=== PATIENT | male | born 1955 | race Caucasian/White ===

== ENCOUNTER → 2020-04-06 08:46 | Outpatient (REF) | payer OTHER, SELFPAY ==
--- NOTE | 2020-04-06 | NM_ITS ---
EXERCISE MYOCARDIAL PERFUSION STUDY INDICATION: Shortness of breath, positive family history for coronary disease, coronary artery catheterization on CT scan, assess for ischemia TECHNIQUE: The patient was brought in for an exercise perfusion study on 04/06/2020. Patient performed exercise as per [place] protocol and was injected 30 mCi of sestamibi once target heart rate was achieved. Images were obtained using the SPECT gamma camera interlaced with the gating device. Images were obtained in supine position. Resting perfusion study was performed on 04/07/2020. Patient was administered 30 mCi of sestamibi intravenously at rest. Images were then obtained in supine position. Total DLP 76mGy-cm. Images were processed with the software and compared side to side in short axis, horizontal long axis and vertical long axis views. FINDINGS: Raw images were reviewed. The stress perfusion study showed diminished tracer uptake along the basal to mid inferior wall; basal to mid inferior septum. With CT attenuation correction, this improves significantly suggestive of diaphragmatic attenuation artifact. The gated study shows normal LV systolic function with calculated LVEF of 71%. LV cavity is normal in size. The gated study shows normal wall thickening and contraction of segments. Resting study shows diminished tracer uptake along the basal to mid inferior wall as well as basal to mid inferior septum, similar to the stress acquisition. With CT attenuation correction, there is improvement suggestive of diaphragmatic attenuation artifact. Gating at rest reveals normal wall motion with ejection fraction at 63%. The findings are consistent with no reversible defects. Fixed defect in the basal to mid inferior wall and inferior septum with improvement during CT attenuation correction suggestive of diaphragmatic attenuation artifact. NM/NM traci perf SPECT rest & str IMPRESSION: 1. Myocardial perfusion imaging study shows no evidence of any ischemia or infarction. Fixed defect in the basal to mid inferior wall/inferior septum suspected to be from diaphragmatic attenuation artifact. 2. Gated LVEF is 71% during stress and 60% during rest. 3. Transient ischemic dilatation not present.. EKG component of the test reported separately.
--- NOTE | 2020-04-06 08:52 | CA_ITS ---
Transthoracic Echocardiogram Patient (Last, First, Middle): aVleria Coffman C Gender: Male Date of : 1955 Age: 65 Procedure Date: 04/06/2020 Procedure Type: Transthoracic Echocardiogram Location: OP Height: 182.88 cm Weight: 97.52 kg BSA: 2.20 m2 Heart Rate: bpm BP: 132 / 80 mmHg Fire Fighter: ALBA Referring MD: Demond Montelongo MD Symptoms: R06.02 SOB Study Quality: Fair ECG Rhythm: Sinus Conclusions: - The left ventricular systolic function is mildly decreased. The visually estimated ejection fraction is between 40-45%. - Diastolic function is normal for age. - The inferolateral wall is hypokinetic. - Mildly increased right ventricular cavity size. There is normal right ventricular systolic function. - Mildly elevated right atrial pressure. There is no evidence of pulmonary hypertension. - There is mild dilatation of the ascending aorta. Findings Left Ventricle Normal left ventricular cavity size. There is normal left ventricular wall thickness. The left ventricular systolic function is mildly decreased. The visually estimated ejection fraction is between 40-45%. There is evidence of regional wall motion abnormalities. Diastolic function is normal for age. Wall Motion Rest Echo Findings The inferolateral wall is hypokinetic. Right Ventricle Mildly increased right ventricular cavity size. There is normal right ventricular systolic function. Atria Both atria are normal in size. Aortic Valve Normal aortic valve structure and function. There is no aortic valve stenosis. There is no aortic valve regurgitation. Mitral Valve Normal mitral valve structure and function. There is trace mitral valve regurgitation. There is no mitral valve stenosis. Tricuspid Valve Normal tricuspid valve structure and function. There is mild tricuspid valve regurgitation. Mildly elevated right atrial pressure. There is no evidence of pulmonary hypertension. Great Vessels There is mild dilatation of the ascending aorta. The visualized portions of the pulmonary artery and branches are normal. Venous The inferior vena cava is dilated and collapses greater than 50% with inspiration. Pericardium/Pleural There is no evidence of pericardial effusion. Prior Study Comparison No prior study available for comparison. Measurements 2D Linear Measurements IVSd: 0.99 0.6-0.9/0.6-1.0 cm LVIDd: 4.49 3.9-5.3/4.2-5.9 cm LVIDs: 3.01 2.0-3.6 cm LVPWd: 0.96 0.7-1.1 cm Ao Root: 3.82 2.1-3.5 cm LV Mass: 182.65 67-162/88-224 g LVOT Diam: 2.57 3.0+(-)1.3 cm Mitral Valve MV Pk E: 0.81 MV PK A: 0.66 MV Decel Time: 143.12 E/A: 1.22 E'Lateral: 0.10 E'Medial: 0.14 Decel [place]: 5.64 Aortic Valve AoV Pk Ronald: 1.05 AoV Mn Ronald: 0.74 AoV VTI: 0.27 AoV Pk Grad: 4.38 Aov Mn Grad: 2.52 LVOT LVOT Pk Ronald: 0.86 LVOT Mn Ronald: 0.62 LVOT VTI: 0.18 LVOT Pk Grad: 2.95 LVOT Mn Grad: 1.70 LVOT Diam: 2.57 LVOT Area: 5.18 Diastolic Function MV Pk E: 0.81 MV Pk A: 0.66 E/A: 1.22 E'Medial: 0.14 E' Laterial: 0.10 Tricuspid Valve TR Pk Ronald: 2.19 TR Pk Grad: 19.28 RA Press: 3.00 RVSP: 31.00 Great Vessels Aorta Ao Root-2D: 3.82 2.0-3.7 cm Ao Asc: 4.00 2.1-3.4 cm Pulmonary Valve PV Pk Ronald: 0.89 Peak PV Grad: 3.15 Updated in Other Vendor System with Status of Final Ortiz Che MD electronically signed on 04/07/2020 11:46:10 AM with status of Final
--- NOTE | 2020-04-06 09:30 | CA_ITS ---
Acquisition Time: 2020-04-06 09:52:06 Total Exercise Time: 00:08:01 Test Indications: Dyspnea Medications: ASA SIMVASTATIN Protocol: MADDY Max HR: 148 BPM 94% of Pred: 157 BPM Max BP: 196/062 mmHG Max Work Load: 10.1 METS Exercise stress test using Maddy protocol, total of 8 min 1 sec. METS 10.1. Pt tolerated well, denies any anginal sx. EKG with occ PVC's withot any sx. no ischemic changes. Hypertensiverresponse to exercise BP up to 196/62. Nuclear images to follow. Test reviewed with Dr. Che. Referred By: Demond Montelongo Overread By: Khadar Javier
== END ==
LOC: HO.CARD 08:46
PROVIDERS: PCP Family Medicine; Visit Provider Internal Medicine Cardiovascular Disease
DX: R06.02 Shortness of breath (principal); R93.1 Abnormal findings on diagnostic imaging of heart and coronary circulation; E78.00 Pure hypercholesterolemia, unspecified; Z82.49 Family history of ischemic heart disease and other diseases of the circulatory system
CPT/HCPCS: 78452; 93017; 93306; A9500

== ENCOUNTER → 2020-04-19 10:42 | Outpatient (BNVA) | payer OTHER, SELFPAY | PROVIDERS: PCP Family Medicine; Referring Provider Family Medicine; Visit Provider Internal Medicine Cardiovascular Disease | DX: I25.10 Atherosclerotic heart disease of native coronary artery without angina pectoris (principal); R06.02 Shortness of breath; R93.1 Abnormal findings on diagnostic imaging of heart and coronary circulation; E78.5 Hyperlipidemia, unspecified; Z79.82 Long term (current) use of aspirin; Z79.899 Other long term (current) drug therapy | CPT/HCPCS: 99212 ==

== ENCOUNTER 2020-05-06 13:09 | Outpatient (REF) | payer OTHER, SELFPAY | END 2020-05-06 13:10 | disposition home or self-care (01) | LOC: HO.LNP 13:09 | PROVIDERS: Visit Provider Family Medicine | DX: Z20.828 Contact with and (suspected) exposure to other viral communicable diseases (principal) | CPT/HCPCS: U0003 ==

== ENCOUNTER → 2020-05-18 08:01 | Outpatient (BNVA) | payer OTHER, SELFPAY | PROVIDERS: PCP Family Medicine; Referring Provider Family Medicine; Visit Provider Psychiatry & Neurology Neurology | DX: Z13.89 Encounter for screening for other disorder (principal) ==

== ENCOUNTER → 2020-07-06 11:16 | Outpatient (BNVA) | payer OTHER, SELFPAY | PROVIDERS: PCP Family Medicine; Visit Provider Psychiatry & Neurology Neurology ==

== ENCOUNTER → 2020-07-12 08:56 | Outpatient (REF) | payer OTHER, SELFPAY | LOC: HO.SL 08:56 | PROVIDERS: Visit Provider Psychiatry & Neurology Neurology | DX: G47.33 Obstructive sleep apnea (adult) (pediatric) (principal); G47.19 Other hypersomnia | CPT/HCPCS: 95806 ==

== ENCOUNTER → 2020-07-26 08:13 | Outpatient (REF) | payer OTHER, SELFPAY ==
--- NOTE | 2020-07-26 08:17 | CA_ITS ---
Transthoracic Echocardiogram Patient (Last, First, Middle): Valeria Coffman C Gender: Male Date of : 1955 Age: 65 Procedure Date: 07/26/2020 Procedure Type: Transthoracic Echocardiogram Location: OP Height: 182.88 cm Weight: 99.79 kg BSA: 2.22 m2 Heart Rate: bpm BP: 126 / 80 mmHg Pediatrics Physician: Referring MD: Demond Montelongo MD Symptoms: R93.1 - Abnormal findings on diagnostic imaging of heart and coronary circulation Study Quality: Fair ECG Rhythm: Sinus Conclusions: - The left ventricular systolic function is low normal. The visually estimated ejection fraction is between 50-55%. Findings Left Ventricle Normal left ventricular cavity size. There is mildly increased left ventricular wall thickness. The left ventricular systolic function is low normal. The visually estimated ejection fraction is between 50-55%. There is no evidence of regional wall motion abnormalities. Right Ventricle Mildly increased right ventricular cavity size. There is normal right ventricular systolic function. Tricuspid Valve The right ventricular systolic pressure is 23 mmHg. The pulmonary artery systolic pressure is normal. Prior Study Comparison Changes noted compared to prior study dated: 04/06/2020. LVEF appears higher than previously described. Measurements 2D Linear Measurements IVSd: 1.07 0.6-0.9/0.6-1.0 cm LVIDd: 4.04 3.9-5.3/4.2-5.9 cm LVIDd Index: 1.82 2.4-3.2/2.2-3.1 cm/m2 LVIDs: 3.08 2.0-3.6 cm LVPWd: 1.14 0.7-1.1 cm LV Mass: 185.33 67-162/88-224 g LV Mass Index: 83.48 43-95/49-115 g/m2 2D Systolic Function EF 4C: 40.10 >55% EF 2C: 46.70 >55% Tricuspid Valve TR Pk Ronald: 2.20 TR Pk Grad: 20.00 RA Press: 3.00 RVSP: 23.00 Updated in Other Vendor System with Status of Final Carlos Verde MD electronically signed on 07/27/2020 2:58:02 PM with status of Final
== END ==
LOC: HO.CARD 08:13
PROVIDERS: Visit Provider Internal Medicine Cardiovascular Disease
DX: I25.10 Atherosclerotic heart disease of native coronary artery without angina pectoris (principal); R06.02 Shortness of breath; R93.1 Abnormal findings on diagnostic imaging of heart and coronary circulation
CPT/HCPCS: 93308

== ENCOUNTER → 2020-08-03 08:32 | Outpatient (BNVA) | payer OTHER, SELFPAY | PROVIDERS: PCP Family Medicine; Visit Provider Internal Medicine Cardiovascular Disease ==

== ENCOUNTER → 2020-09-14 08:42 | Outpatient (BNVA) | payer OTHER, SELFPAY | PROVIDERS: PCP Family Medicine; Visit Provider Psychiatry & Neurology Neurology ==

== ENCOUNTER → 2020-12-07 08:47 | Outpatient (BNVA) | payer OTHER, SELFPAY | PROVIDERS: PCP Family Medicine; Visit Provider Psychiatry & Neurology Neurology ==

== ENCOUNTER → 2021-07-15 08:19 | Outpatient (REF) | payer OTHER, SELFPAY ==
--- NOTE | 2021-07-15 08:22 | CA_ITS ---
Transthoracic Echocardiogram Patient (Last, First, Middle): Valeria Coffman C Gender: Male Date of : 1955 Age: 66 Procedure Date: 07/15/2021 Procedure Type: Transthoracic Echocardiogram Location: OP Height: 182.88 cm Weight: 55.79 kg BSA: 1.73 m2 Heart Rate: bpm BP: 128 / 85 mmHg Contact Lens Technician: JANAE Referring MD: Demond Montelongo MD Curtain Fitter: Demond Montelongo MD Symptoms: I25.10 - Atherosclerotic heart disease of [place] coronary artery without angina pectoris Study Quality: Fair ECG Rhythm: Sinus Conclusions: - 1. Normal LV systolic function 2. Normal cardiac valvular Dopplers 3. Mildly dilated ascending aorta 4. Normal RVSP 5. No pericardial effusion Findings Left Ventricle Normal left ventricular size, thickness, and systolic function. The visually estimated ejection fraction is between 55-60%. Spectral Doppler is indicative of a normal filling pattern. Right Ventricle Normal right ventricular cavity size and systolic function. Atria Both atria are normal in size. There is no evidence of interatrial shunt. Aortic Valve There is mild calcification of the aortic valve. There is no aortic valve stenosis. There is no aortic valve regurgitation. Mitral Valve There is mild anterior mitral leaflet thickening. There is trace mitral valve regurgitation. There is no mitral valve stenosis. Pulmonic Valve The pulmonic valve was not well visualized. Tricuspid Valve Normal tricuspid valve structure. There is trace tricuspid valve regurgitation. The right ventricular systolic pressure is normal. The right ventricular systolic pressure is 21 mmHg. Normal right atrial pressure. There is no evidence of pulmonary hypertension. Great Vessels The pulmonary artery was not well visualized. There is mild dilatation of the ascending aorta measuring 4.00 cm. Small plaque is seen in the sino tubular ridge. Venous The inferior vena cava is normal in size and collapses greater than 50% with inspiration. Pericardium/Pleural There is no evidence of pericardial effusion. Prior Study Comparison Changes noted compared to prior study dated: 07/26/2020. LV systolic function is normal range. Ascending aorta is mildly dilated Measurements 2D Linear Measurements IVSd: 0.92 0.6-0.9/0.6-1.0 cm LVIDd: 4.17 3.9-5.3/4.2-5.9 cm LVIDd Index: 2.41 2.4-3.2/2.2-3.1 cm/m2 LVIDs: 2.38 2.0-3.6 cm LVPWd: 0.99 0.7-1.1 cm Ao Root: 4.20 2.1-3.5 cm LA Diam: 3.40 2.7-3.8/3.0-4.0 cm LAIDs Index: 1.97 1.5-2.3 cm/m2 LV Mass: 158.22 67-162/88-224 g LV Mass Index: 91.46 43-95/49-115 g/m2 LVOT Diam: 2.20 3.0+(-)1.3 cm 2D Systolic Function EF 4C: 63.80 >55% EF 2C: 51.70 >55% EF BiP: 58.50 >55% Mitral Valve MV Pk E: 0.65 MV PK A: 0.50 MV Decel Time: 192.00 E/A: 1.30 E'Lateral: 12.50 E'Medial: 7.07 E/E' Med: 9.20 E/E' Lat: 5.20 PHT: 56.00 MVA PHT: 3.93 Decel [place]: 3.38 Aortic Valve AoV Pk Ronald: 1.02 AoV Mn Ronald: 0.80 AoV VTI: 0.22 AoV Pk Grad: 4.00 Aov Mn Grad: 3.00 RADHA Cont.VTI: 3.28 LVOT LVOT Pk Ronald: 0.91 LVOT Mn Ronald: 0.68 LVOT VTI: 0.19 LVOT Pk Grad: 3.00 LVOT Mn Grad: 2.00 LVOT Diam: 2.20 LVOT Area: 3.80 Diastolic Function MV Pk E: 0.65 MV Pk A: 0.50 E/A: 1.30 E'Medial: 7.07 E/E' Med: 9.20 E' Laterial: 12.50 E/E' Lat: 5.20 Right Ventricle TAPSE (mm): 18.40 TVS' Ronald: 9.90 Tricuspid Valve TR Pk Ronald: 2.14 TR Pk Grad: 18.00 RA Press: 3.00 RVSP: 21.00 Great Vessels Aorta Ao Root-2D: 4.20 2.0-3.7 cm Ao Asc: 4.00 2.1-3.4 cm Ao Arch: 3.10 Updated in Other Vendor System with Status of Final Demond Montelongo MD electronically signed on 07/16/2021 10:13:17 AM with status of Final
== END ==
LOC: HO.CARD 08:19
PROVIDERS: PCP Family Medicine; Visit Provider Internal Medicine Cardiovascular Disease
DX: I25.10 Atherosclerotic heart disease of native coronary artery without angina pectoris (principal)
CPT/HCPCS: 93306

== ENCOUNTER → 2021-08-02 14:42 | Outpatient (BNVA) | payer OTHER, SELFPAY | PROVIDERS: PCP Family Medicine; Referring Provider Family Medicine; Visit Provider Internal Medicine Cardiovascular Disease | DX: I77.89 Other specified disorders of arteries and arterioles (principal); I25.10 Atherosclerotic heart disease of native coronary artery without angina pectoris | CPT/HCPCS: 93005; 99212 ==

== ENCOUNTER 2022-02-02 08:37 | Outpatient (REF) | payer MEDICARE, SELFPAY ==
[2022-02-02 10:48] LABS: Alanine Aminotransferase 26 U/L (0-40); Albumin Level 4.1 g/dL (3.5-5.0); Alkaline Phosphatase 82 U/L (39-117); Anion Gap 13 (12-20); Aspartate Amino Transferase 23 U/L (5-37); Bilirubin Total 0.6 mg/dL (0.0-1.0); Blood Urea Nitrogen 17 mg/dL (9-16); Calcium 8.9 mg/dL (8.4-10.2); Carbon Dioxide 26 mmol/L (22-29); Chloride 105 mmol/L (96-108); Cholesterol 135 mg/dL; Estimated Glomerular Filt Rate 60; Glucose Fasting 112 mg/dL (60-99); HDL Cholesterol 42 mg/dL; LDL Cholesterol Calculated 75 mg/dl; Sodium 139 mmol/L (135-145); Total Protein 6.8 g/dL (6.5-8.0); Triglycerides 91 mg/dL
[2022-02-02 11:13] LABS: Prostate Specific Antigen Scr 3.39 ng/mL (<0.05-4.0); TSH reflex Free T4 1.57 uIU/mL (0.32-4.0)
== END 2022-02-02 08:38 | disposition home or self-care (01) ==
LOC: HO.WFDLDS 08:37
PROVIDERS: PCP Family Medicine; Visit Provider Family Medicine
DX: Z00.00 Encounter for general adult medical examination without abnormal findings (principal); Z12.5 Encounter for screening for malignant neoplasm of prostate
CPT/HCPCS: 36415; 80053; 80061; 84153; 84443

== ENCOUNTER → 2022-03-14 09:02 | Outpatient (BNVA) | payer MEDICARE, SELFPAY | PROVIDERS: PCP Family Medicine; Visit Provider Psychiatry & Neurology Neurology | DX: Z86.73 Personal history of transient ischemic attack (TIA), and cerebral infarction without residual deficits (principal); G47.33 Obstructive sleep apnea (adult) (pediatric); Z79.82 Long term (current) use of aspirin | CPT/HCPCS: 99212 ==

== ENCOUNTER 2022-03-29 10:11 | Outpatient (REF) | payer MEDICARE, SELFPAY ==
--- NOTE | ~2022-03-29 | US_ITS ---
EXAMINATION: US EXTRACRANIAL CAROTID DUPLEX, BILATERAL CLINICAL INFORMATION: Cerebral infarction. COMPARISON: None. TECHNIQUE: Real-time ultrasound and Doppler techniques (integrating B-mode 2-D vascular images, Doppler spectral analysis and color-flow Doppler imaging) were utilized to interrogate the extracranial carotid arteries, the vertebral arteries and proximal subclavian arteries bilaterally. The degree of stenosis is determined by criteria similar to NASCET. FINDINGS: RIGHT SIDE: 1. There is mild atherosclerotic plaque seen in the bifurcation/proximal ICA region. 2. The common carotid artery PSV proximally is 78 cm/s and distally 73 cm/s. 3. The proximal internal carotid artery velocities are 79 cm/s systolic and 25 cm/s diastolic. 4. The proximal external carotid artery PSV is 100 cm/s. 5. The vertebral artery shows antegrade flow. 6. The subclavian artery waveforms are normal. 7. Incidental note made of a distended right internal jugular vein. LEFT SIDE: 1. There is mild atherosclerotic plaque seen in the bifurcation/proximal ICA region. 2. The common carotid artery PSV proximally is 105 cm/s and distally 80 cm/s. 3. The proximal internal carotid artery velocities are 44 cm/s systolic and 18 cm/s diastolic. 4. The proximal external carotid artery PSV is 79 cm/s. 5. The vertebral artery shows antegrade flow. 6. The subclavian artery waveforms are normal. US/US carotid duplex BI IMPRESSION: 1. RIGHT: Minimal, non-hemodynamically significant stenosis of the proximal right internal carotid artery corresponding to a 0-49% stenosis by velocity criteria. 2. LEFT: Minimal, non-hemodynamically significant stenosis of the proximal left internal carotid artery corresponding to a 0-49% stenosis by velocity criteria. 3. The right internal jugular vein is distended.
== END 2022-03-29 10:12 | disposition home or self-care (01) ==
LOC: HO.HMGCX 10:11
PROVIDERS: PCP Family Medicine; Visit Provider Psychiatry & Neurology Neurology
DX: Z86.73 Personal history of transient ischemic attack (TIA), and cerebral infarction without residual deficits (principal)
CPT/HCPCS: 93880

== ENCOUNTER → 2022-05-23 08:58 | Outpatient (BNVA) | payer MEDICARE, SELFPAY | PROVIDERS: PCP Family Medicine; Visit Provider Psychiatry & Neurology Neurology | DX: G47.33 Obstructive sleep apnea (adult) (pediatric) (principal); I63.9 Cerebral infarction, unspecified | CPT/HCPCS: 99212 ==

== ENCOUNTER → 2022-07-20 12:43 | Outpatient (REF) | payer MEDICARE, SELFPAY ==
--- NOTE | 2022-07-20 12:47 | CA_ITS ---
Transthoracic Echocardiogram Patient (Last, First, Middle): Valeria Coffman C Gender: Male Date of : 1955 Age: 67 Procedure Date: 07/20/2022 Procedure Type: Transthoracic Echocardiogram Location: OP Height: 182.88 cm Weight: 101.61 kg BSA: 2.24 m2 Heart Rate: bpm BP: 132 / 82 mmHg President Sales And Marketing: TO Referring MD: Demond Montelongo MD Solid Waste Facility Operator: Demond Montelongo MD Symptoms: I77.89 - Other specified disorders of arteries and arteri... Study Quality: Fair ECG Rhythm: Sinus Conclusions: - 1. Normal LV systolic and diastolic function 2. Normal cardiac valvular Doppler 3. Normal RV systolic pressure 4. Mildly dilated ascending aorta at 4.1 cm 5. No pericardial effusion Findings Left Ventricle Normal left ventricular size, thickness, and systolic function. The visually estimated ejection fraction is between 55-60%. Spectral Doppler is indicative of a normal filling pattern. Right Ventricle Normal right ventricular cavity size and systolic function. Atria Both atria are normal in size. Interatrial shunt cannot be excluded. Aortic Valve Normal aortic valve structure and function. There is no aortic valve stenosis. There is no aortic valve regurgitation. Mitral Valve Normal mitral valve structure and function. There is trace mitral valve regurgitation. There is no mitral valve stenosis. Pulmonic Valve The pulmonic valve was not well visualized. Tricuspid Valve Likely normal tricuspid valve structure and function. There is trace tricuspid valve regurgitation. The right ventricular systolic pressure is normal. The right ventricular systolic pressure is 21 mmHg. Normal right atrial pressure. There is no evidence of pulmonary hypertension. Great Vessels The pulmonary artery was not well visualized. There is mild dilatation of the ascending aorta measuring 4.10 cm. Venous The inferior vena cava is normal in size and collapses greater than 50% with inspiration. Pericardium/Pleural There is no evidence of pericardial effusion. Prior Study Comparison No significant change compared to prior study dated: 07/15/2021. Measurements 2D Linear Measurements IVSd: 1.29 0.6-0.9/0.6-1.0 cm LVIDd: 4.32 3.9-5.3/4.2-5.9 cm LVIDd Index: 1.93 2.4-3.2/2.2-3.1 cm/m2 LVIDs: 2.76 2.0-3.6 cm LVPWd: 1.12 0.7-1.1 cm LA Diam: 3.10 2.7-3.8/3.0-4.0 cm LAIDs Index: 1.38 1.5-2.3 cm/m2 LV Mass: 233.17 67-162/88-224 g LV Mass Index: 104.09 43-95/49-115 g/m2 LVOT Diam: 2.50 3.0+(-)1.3 cm 2D Systolic Function EF 4C: 55.90 >55% EF 2C: 51.80 >55% EF BiP: 55.20 >55% Mitral Valve MV Pk E: 0.59 MV PK A: 0.67 MV Decel Time: 217.00 E/A: 0.90 E'Lateral: 9.68 E'Medial: 5.22 E/E' Med: 11.30 E/E' Lat: 6.10 PHT: 63.00 MVA PHT: 3.49 Decel [place]: 2.73 Aortic Valve AoV Pk Ronald: 1.13 AoV Mn Ronald: 0.80 AoV VTI: 0.22 AoV Pk Grad: 5.00 Aov Mn Grad: 3.00 RADHA Cont.VTI: 3.99 LVOT LVOT Pk Ronald: 0.87 LVOT Mn Ronald: 0.59 LVOT VTI: 0.18 LVOT Pk Grad: 3.00 LVOT Mn Grad: 2.00 LVOT Diam: 2.50 LVOT Area: 4.91 Diastolic Function MV Pk E: 0.59 MV Pk A: 0.67 E/A: 0.90 E'Medial: 5.22 E/E' Med: 11.30 E' Laterial: 9.68 E/E' Lat: 6.10 Right Ventricle TAPSE (mm): 20.30 TVS' Ronald: 10.10 Tricuspid Valve TR Pk Ronald: 2.13 TR Pk Grad: 18.00 RA Press: 3.00 RVSP: 21.00 Great Vessels Aorta Sinus of Valsalva: 4.55 2.0-3.[address] [place]: 3.29 1.7-3.4 cm Ao Asc: 4.10 2.1-3.4 cm Updated in Other Vendor System with Status of Final Demond Montelongo MD electronically signed on 07/21/2022 12:17:47 PM with status of Final
== END ==
LOC: HO.CARD 12:43
PROVIDERS: Visit Provider Internal Medicine Cardiovascular Disease
DX: Z13.6 Encounter for screening for cardiovascular disorders (principal); I77.89 Other specified disorders of arteries and arterioles
CPT/HCPCS: 93306

== ENCOUNTER → 2022-08-03 09:04 | Outpatient (BNVA) | payer MEDICARE, SELFPAY | PROVIDERS: PCP Family Medicine; Referring Provider Family Medicine; Visit Provider Internal Medicine Cardiovascular Disease | DX: I25.10 Atherosclerotic heart disease of native coronary artery without angina pectoris (principal); I77.89 Other specified disorders of arteries and arterioles | CPT/HCPCS: 93005; 99212 ==

== ENCOUNTER → 2022-09-01 10:50 | Outpatient (REF) | payer MEDICARE, SELFPAY ==
--- NOTE | 2022-09-01 10:54 | CA_ITS ---
Acquisition Time: 2022-09-01 11:05:34 Total Exercise Time: 00:08:00 Test Indications: cad Medications: see h Protocol: MADDY Max HR: 190 BPM 122% of Pred: 155 BPM Max BP: 160/070 mmHG Max Work Load: 10.1 METS Exercise stress test 8 min of Maddy protocol achieving 97% MPHR, without anginal symptoms, isolated PACs and PVS, with normotensive response to exercise, without EKG changes meeting criteria for ischemia. Echo images obtained at rest and immediately post peak exercise. Definty contrast used. Test reviewed with Dr. Che. Normal resting LV function and regional wall motion. Post exercise, there is appropriate augmentation of the LV function and LV cavity appears to be small. Images are off axis but overall no obvious regional wall motion abnormalities noted. Conclusion: Normal stress echo at achieved workload. Referred By: Demond Montelongo Overread By: Ortiz Che
[2022-09-01 12:30] LABS: Cholesterol 136 mg/dL; HDL Cholesterol 46 mg/dL; LDL Cholesterol Calculated 72 mg/dl; Triglycerides 92 mg/dL
[2022-09-04 11:59] LABS: CRP High Sensitivity 2.4 mg/L
== END ==
LOC: HO.CARD 10:50
PROVIDERS: PCP Family Medicine; Visit Provider Internal Medicine Cardiovascular Disease
DX: I25.10 Atherosclerotic heart disease of native coronary artery without angina pectoris (principal); E78.5 Hyperlipidemia, unspecified
CPT/HCPCS: 36415; 80061; 86141; 93350; Q9957

== ENCOUNTER 2023-02-07 08:31 | Outpatient (REF) | payer MEDICARE, SELFPAY ==
[2023-02-07 11:29] LABS: MANUAL DIFF FLAG NO
[2023-02-07 11:38] LABS: Basophils Percent Auto 0.4 % (0-2); Eosinophils Absolute Auto 0.2 X10*3/uL (0.0-0.4); Eosinophils Percent Auto 4.4 % (0-4); Hematocrit 46.7 % (42.0-52.0); Hemoglobin 15.3 g/dl (14.0-18.0); Imm Gran Abs Auto 0.01 X10*3/uL (0.00-0.03); Imm Gran Pct Auto 0.2 % (0.0-0.4); Lymphocytes Absolute Auto 1.5 X10*3/uL (1.2-4.9); Lymphocytes Percent Auto 29.2 % (20-40); Mean Corpuscular HGB Conc 32.8 g/dl (31.0-36.0); Mean Corpuscular Hemoglobin 30.5 pg (27.0-33.0); Mean Corpuscular Volume 93.2 fL (80.0-98.0); Mean Platelet Volume 10.2 fL (9.4-12.4); Monocytes Absolute Auto 0.5 X10*3/uL (0.1-1.2); Monocytes Percent Auto 8.9 % (2-11); Neutrophils Percent Auto 56.9 % (45-73); Platelet Count 189 X10*3/uL (160-400); Red Blood Count 5.01 X10*6/uL (4.60-5.80); Red Cell Distribution Width 13.5 % (11.0-16.0); White Blood Count 5.3 X10*3/uL (4.8-10.8)
[2023-02-07 11:43] LABS: Estimated Average Glucose 105 mg/dL; Hemoglobin A1c % 5.3 % (<6.0)
[2023-02-07 12:07] LABS: Alanine Aminotransferase 23 U/L (0-40); Albumin Level 3.9 g/dL (3.5-5.0); Alkaline Phosphatase 76 U/L (39-117); Anion Gap 8 (12-20); Aspartate Amino Transferase 21 U/L (5-37); Blood Urea Nitrogen 18 mg/dL (9-16); Calcium 9.5 mg/dL (8.4-10.2); Carbon Dioxide 27 mmol/L (22-29); Chloride 107 mmol/L (96-108); Cholesterol 133 mg/dL (<200); Estimated Glomerular Filt Rate > 60; Glucose Random 99 mg/dL (60-115); HDL Cholesterol 50 mg/dL (>40); LDL Cholesterol Calculated 69 mg/dL (<100); Potassium 4.3 mmol/L (3.3-5.1); Sodium 138 mmol/L (135-145); Total Protein 6.9 g/dL (6.5-8.0); Triglycerides 74 mg/dL (<150)
[2023-02-07 12:28] LABS: Thyroid Stimulating Hormone 1.73 uIU/mL (0.32-4.0)
[2023-02-07 12:44] LABS: Vitamin B12 1883 pg/mL (200-900)
== END 2023-02-07 08:32 | disposition home or self-care (01) ==
LOC: HO.WFDLDS 08:31
PROVIDERS: Visit Provider Family Medicine
DX: Z13.89 Encounter for screening for other disorder (principal)
CPT/HCPCS: 36415; 80053; 80061; 82607; 83036; 84443; 85025

== ENCOUNTER 2023-02-08 08:24 | Outpatient (AMB) | payer MEDICARE, SELFPAY ==
--- NOTE | 2023-02-08 08:30 | MHC.PC.OV ---
Vital Signs 02/08/23 08:31 Height 6 ft Weight 210 lb 4 oz BMI 28.5 BP 108/64 Blood Pressure Location Rt brachial Position Sitting Respiration 13 Pulse 59 Pulse Source Pulse Oximeter Temp 98.0 F Temp Source Temporal Artery Scan Pulse Oximetry (%) 99 Oxygen Delivery Method Room Air Intake Visit Reasons: f/u HLD and elevated fasting blood sugars Intake Note: Patient is here to review labs. 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 Accompanied by: Self / Same As Patient Allergies penicillamine Allergy (Unknown, Verified 02/08/23 08:35) unknown Penicillins Adverse Reaction (Intermediate, Verified 02/08/23 08:35) Anaphylaxis Tobacco use date assessed: 08/21/22 Fall risk assessment: No Falls in past year Last assessed Fall Risk: 02/08/23 Dental Screening Dental Screen Date: 02/08/23 Did you have a dental visit in the last 12 months?: Yes Did you have a dental problem in the last 6 months where you did not have access to dental care?: No Was dental information given to patient?: Patient has dentist HPI f/u HLD and elevated fasting blood sugars HPI Details 68 y/o male presents to f/u HLD and elevated fasting blood sugars. Labs were drawn 02/07/23. Reviewed labs with pt. Last A1c 11/14/22 5.6%. A1c today 5.3%. Triglycerides 74. TC 133. LDL 69. HDL 50. He is on artovastatin 80mg daily. [facility] Medical History CAD (coronary artery disease) Enlarged thoracic aorta Hyperlipidemia Surgical History History of open reduction and internal fixation (ORIF) procedure Family History Mother No problems noted. Father CVD (cardiovascular disease) Brother Hx of CABG Brother No problems noted. Son No problems noted. Son No problems noted. Daughter No problems noted. Social History Housing: House Patient Tobacco Use Status: Former Tobacco user Years Smoked: 30 e-Cigarette/Vaping Use: Never Used service: No Current occupational status: retired Current occupational exposures/hazards: No Cognitive needs: No Hearing needs: Yes Vision needs: Yes Questionnaire Thrive Questionnaire Date Thrive assessed: 05/22/22 LUIS-7 AMB Questionnaire LUIS-7 Date LUIS - 7 assessed: 08/21/22 Source: Developed by Drs. Larry Stockton, Bridget Nielsen, Didier Hernandez and colleagues, with an educational toya from [employer]. Review of Systems Const Denies chills, Denies fatigue, Denies fever(s), Denies headache(s) and Denies weakness ENT Denies dizziness and Denies headache(s) Card Denies chest pain, Denies lightheadedness, Denies dyspnea and Denies other (Palpitations) Resp Denies cough, Denies dyspnea, Denies wheezing and Denies other ( shortness of breath) Musc Denies numbness and Denies tingling Neuro Denies dizziness, Denies headache(s), Denies numbness, Denies tingling, Denies paresthesias and Denies weakness Psych Denies anxiety and Denies depression Endo Denies fatigue Aller/Immun Denies wheezing Physical exam (Primary Care) Vital Signs: Last Vital Signs Temp 98.0 F 02/08/23 08:31 Pulse 59 02/08/23 08:31 Resp 13 02/08/23 08:31 BP 108/64 02/08/23 08:31 Pulse Ox 99 02/08/23 08:31 Oxygen Delivery Method Room Air 02/08/23 08:31 BMI result Body Mass Index 28.5 Tobacco/Smoking Status: Tobacco use Status Tobacco use date assessed 08/21/22 02/08/23 08:36 Patient Tobacco Use Status Former Tobacco user 02/08/23 08:36 e-Cigarette/Vaping Use Never Used 02/08/23 08:36 Thrive Assessment: Date of Thrive Assessment Date Thrive assessed 05/22/22 02/08/23 08:36 Const General: no acute distress and well developed Nutritional Appearance: well nourished Orientation/consciousness: patient oriented x3 HENMT Head: Yes normocephalic and Yes atraumatic Eyes General: appearance normal, both eyes and all related structures Pupils: Equal, round and reactive pupils present EOM: EOMs intact bilaterally Resp Effort & Inspection: normal respiratory effort Auscultation: clear to auscultation bilaterally Cardio Rate: regular rate Rhythm: regular rhythm Heart sounds: S1 normal heart sound present, S2 normal heart sound present, no gallops, no murmurs and no rubs Neuro General: patient oriented x3 and gait normal Cranial nerves: Yes Equal, round and reactive pupils present Psych Affect: normal affect Assessment and Plan Assessment & Plan (1) Hyperlipidemia: Comment: Cardiology recommends LDL target goal closer to 60 Code(s): E78.5 - Hyperlipidemia, unspecified Plan: LDL now improved and at goal for a patient with coronary artery disease. Will continue to follow. Cardiology has recommended and even more stringent goal and he continues to exercise and work at this Continue atorvastatin 80 mg daily (2) CAD (coronary artery disease): Code(s): I25.10 - Atherosclerotic heart disease of [place] coronary artery without angina pectoris Plan: As above Follow-up with Cardiology as recommended (3) Elevated fasting glucose: Code(s): R73.01 - Impaired fasting glucose Plan: Elevated fasting blood sugar in a patient with coronary artery disease and patient agreed to begin metformin to control blood sugars. A1c had climbed to 5.6% but since starting metformin this has decreased to 5.3% Continue medication as prescribed Orders: Orders Comprehensive [place]. Panel Fast Today Z00.00 - Encounter for general adult medical examination without abnormal findings Lipid Panel Today Z00.00 - Encounter for general adult medical examination without abnormal findings Prostate Specific Antigen Scr Today Z12.5 - Encounter for screening for malignant neoplasm of prostate TSH reflex Free T4 Today Z00.00 - Encounter for general adult medical examination without abnormal findings Microalbumin, Random (w Creat) Today I10 - Essential (primary) hypertension Complete Blood Count Auto Diff Today Z00.00 - Encounter for general adult medical examination without abnormal findings UA and rflx microscopic Today Z00.00 - Encounter for general adult medical examination without abnormal findings Coding Level of Care Code Est Pt Level 3 (00569) Diagnoses Hyperlipidemia E78.5 CAD (coronary artery disease) I25.10 Elevated fasting glucose R73.01
[2023-02-08 08:31] VITALS: BP 108/64; PULSE 59; RESP 13; TEMP 36.7; O2SAT 99; BMI 28.5
== END 2023-02-08 08:54 | disposition home or self-care (01) ==
PROVIDERS: Visit Provider Family Medicine
DX: E78.5 Hyperlipidemia, unspecified (principal); I25.10 Atherosclerotic heart disease of native coronary artery without angina pectoris; R73.01 Impaired fasting glucose
CPT/HCPCS: 99213

== ENCOUNTER 2023-05-24 08:35 | Outpatient (REF) | payer MEDICARE, SELFPAY ==
[2023-05-24 11:16] LABS: MANUAL DIFF FLAG NO
[2023-05-24 11:29] LABS: Appearance Urine Clear; Color Urine Yellow; Glucose Urine UA Negative (Negative); Leukocyte Esterase Urine Negative (Negative); Nitrite Urine Negative (Negative); Urine Blood Negative (Negative); Urine Ketones Negative (Negative); Urine Protein Negative (Neg-Trace)
[2023-05-24 11:40] LABS: Basophils Percent Auto 0.5 % (0-2); Eosinophils Absolute Auto 0.3 X10*3/uL (0.0-0.4); Eosinophils Percent Auto 4.6 % (0-4); Hematocrit 46.1 % (42.0-52.0); Hemoglobin 15.3 g/dl (14.0-18.0); Imm Gran Abs Auto 0.02 X10*3/uL (0.00-0.03); Imm Gran Pct Auto 0.4 % (0.0-0.4); Lymphocytes Absolute Auto 1.6 X10*3/uL (1.2-4.9); Lymphocytes Percent Auto 29.2 % (20-40); Mean Corpuscular HGB Conc 33.2 g/dl (31.0-36.0); Mean Corpuscular Hemoglobin 30.9 pg (27.0-33.0); Mean Corpuscular Volume 93.1 fL (80.0-98.0); Mean Platelet Volume 10.2 fL (9.4-12.4); Monocytes Absolute Auto 0.5 X10*3/uL (0.1-1.2); Monocytes Percent Auto 8.5 % (2-11); Neutrophils Absolute Auto 3.2 x10*3/uL (2.0-8.3); Neutrophils Percent Auto 56.8 % (45-73); Platelet Count 193 X10*3/uL (160-400); Red Blood Count 4.95 X10*6/uL (4.60-5.80); Red Cell Distribution Width 13.2 % (11.0-16.0); White Blood Count 5.6 X10*3/uL (4.8-10.8)
[2023-05-24 12:20] LABS: Creatinine Urine 44.71 mg/dL; Microalbum/Creatinine Ratio Ur 15.6 ug/mg cr (<30)
[2023-05-24 12:26] LABS: Prostate Specific Antigen Scr 5.81 ng/mL (<0.05-4.0)
[2023-05-24 12:27] LABS: Alanine Aminotransferase 25 U/L (0-40); Albumin Level 4.1 g/dL (3.5-5.0); Alkaline Phosphatase 91 U/L (39-117); Anion Gap 9 (12-20); Aspartate Amino Transferase 23 U/L (5-37); Bilirubin Total 0.8 mg/dL (0.0-1.0); Blood Urea Nitrogen 18 mg/dL (9-16); Calcium 9.5 mg/dL (8.4-10.2); Carbon Dioxide 29 mmol/L (22-29); Chloride 104 mmol/L (96-108); Cholesterol 145 mg/dL (<200); Estimated Glomerular Filt Rate > 60; Glucose Fasting 92 mg/dL (60-99); HDL Cholesterol 52 mg/dL (>40); LDL Cholesterol Calculated 78 mg/dL (<100); Potassium 4.4 mmol/L (3.3-5.1); Sodium 138 mmol/L (135-145); TSH reflex Free T4 1.41 uIU/mL (0.32-4.0); Total Protein 7.5 g/dL (6.5-8.0); Triglycerides 76 mg/dL (<150)
== END 2023-05-24 08:36 | disposition home or self-care (01) ==
LOC: HO.WFDLDS 08:35
PROVIDERS: Visit Provider Family Medicine
DX: Z00.00 Encounter for general adult medical examination without abnormal findings (principal); Z12.5 Encounter for screening for malignant neoplasm of prostate; I10 Essential (primary) hypertension
CPT/HCPCS: 36415; 80053; 80061; 81003; 82043; 82570; 84153; 84443; 85025

== ENCOUNTER 2023-06-01 08:38 | Outpatient (REF) | payer MEDICARE, SELFPAY ==
[2023-06-01 12:03] LABS: Prostate Specific Antigen Scr 4.99 ng/mL (<0.05-4.0)
== END 2023-06-01 08:39 | disposition home or self-care (01) ==
LOC: HO.WFDLDS 08:38
PROVIDERS: Visit Provider Family Medicine
DX: R97.20 Elevated prostate specific antigen [PSA] (principal); Z12.5 Encounter for screening for malignant neoplasm of prostate
CPT/HCPCS: 36415; 84153

== ENCOUNTER 2023-07-05 16:36 | Outpatient (AMB) | payer MEDICARE, SELFPAY ==
--- NOTE | 2023-07-05 16:33 | MHC.PC.OV ---
Intake Visit Reasons: f/u CPE-labs Intake Note: Patient is following up on labs today. Allergies penicillamine Allergy (Unknown, Verified 07/05/23 16:34) unknown Penicillins Adverse Reaction (Intermediate, Verified 07/05/23 16:34) Anaphylaxis Tobacco use date assessed: 07/05/23 Fall risk assessment: No Falls in past year Last assessed Fall Risk: 07/05/23 HPI f/u CPE-labs HPI Details 68 y/o male presents to f/u CPE-labs via telemedicine. Labs were drawn 05/24/23. Reviewed labs with pt. Elevated PSA - 4.99 on 06/01/23. Triglycerides 76. TC 145. LDL 78. HDL 52. He is on artovastatin 80mg daily. Hx of CVA and CAD. He has an appt. with Cardiology coming in July. [facility] Medical History Enlarged thoracic aorta Hyperlipidemia CAD (coronary artery disease) Surgical History History of open reduction and internal fixation (ORIF) procedure Family History Mother No problems noted. Father CVD (cardiovascular disease) Brother Hx of CABG Brother No problems noted. Son No problems noted. Son No problems noted. Daughter No problems noted. Social History Household Members: Spouse Housing: House Alcohol intake: current Alcohol intake frequency: other Comment: Sporadic drinker-more socially Patient Tobacco Use Status: Former Tobacco user Tobacco use type: Cigarette Years Smoked: 30 e-Cigarette/Vaping Use: Never Used service: No Current occupational status: retired Current occupational exposures/hazards: No Sexual orientation: Unable to collect Gender identity: Unable to collect Cognitive needs: No Hearing needs: Yes Vision needs: Yes Questionnaire Thrive Questionnaire Date Thrive assessed: 05/22/22 LUIS-7 AMB Questionnaire LUIS-7 Date LUIS - 7 assessed: 08/21/22 Source: Developed by Drs. Larry Stockton, Bridget Nielsen, Didier Hernandez and colleagues, with an educational toya from [employer]. Review of Systems Const Denies chills, Denies fatigue, Denies fever(s), Denies headache(s) and Denies weakness ENT Denies dizziness and Denies headache(s) Card Denies dyspnea Resp Denies cough, Denies dyspnea, Denies wheezing and Denies other (shortness of breath) Musc Denies numbness and Denies tingling Neuro Denies dizziness, Denies headache(s), Denies numbness, Denies tingling and Denies weakness Psych Denies anxiety and Denies depression Endo Denies fatigue Aller/Immun Denies wheezing Physical exam (Primary Care) Tobacco/Smoking Status: Tobacco use Status Tobacco use date assessed 07/05/23 07/05/23 16:35 Patient Tobacco Use Status Former Tobacco user 07/05/23 16:35 Tobacco use type Cigarette 07/05/23 16:35 e-Cigarette/Vaping Use Never Used 07/05/23 16:35 Thrive Assessment: Date of Thrive Assessment Date Thrive assessed 05/22/22 07/05/23 16:35 Telehealth Telehealth Location of provider rendering services: practice address Location of patient: address on file Patient Identification confirmed using: Name, : Yes Telehealth method: voice only Patient verbally consented to treatment: Yes Patient verbally consented to billing insurance company: Yes Patient informed of any privacy concerns related to visit: Yes Minutes spent on Phone/Video with Pt.: 7 Assessment and Plan Assessment & Plan (1) Hyperlipidemia: Comment: Cardiology recommends LDL target goal closer to 60 Code(s): E78.5 - Hyperlipidemia, unspecified Plan: LDL?has?increased?a?little?and?still?above?goal?of?less?than?60 He?is?on?atorvastatin?80?mg?daily.??We?discussed?adding?Zetia?but?he?would?like?to?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 He?would?also?like?to?consider?ongoing?dietary?and?lifestyle?changes. (2) Elevated PSA: Code(s): R97.20 - Elevated prostate specific antigen [PSA] Plan: PSA?is?elevated. Referred?him?to?Urology?and?he?has?an?appointment?in?July (3) CAD (coronary artery disease): Code(s): I25.10 - Atherosclerotic heart disease of [place] coronary artery without angina pectoris Plan: History?of?coronary?artery?disease Stable Follow-up?with?Cardiology?as?recommended Coding Level of Care Code Tele Est Pt Level 2 (86684) Diagnoses Hyperlipidemia E78.5 Elevated PSA R97.20 CAD (coronary artery disease) I25.10
== END 2023-07-05 17:00 ==
LOC: HO.HMGFM 16:36
PROVIDERS: PCP Family Medicine; Visit Provider Family Medicine
DX: E78.5 Hyperlipidemia, unspecified (principal); R97.20 Elevated prostate specific antigen [PSA]; I25.10 Atherosclerotic heart disease of native coronary artery without angina pectoris
CPT/HCPCS: 99441

== ENCOUNTER 2023-07-31 10:04 | Outpatient (AMB) | payer MEDICARE, SELFPAY ==
[2023-07-31 10:01] VITALS: BP 128/72; PULSE 57; BMI 29.0
--- NOTE | 2023-07-31 10:01 | A.OFFPC_ITS ---
Vital Signs 07/31/23 10:01 Height 6 ft 1 in Weight 220 lb BMI 29.0 BP 128/72 Blood Pressure Location Lt brachial Position Sitting Pulse 57 Intake Visit Reasons: neck shoulder pain Intake Note: Patient is here with pain in neck and shoulder on right side, he first felt it when he went to bed last night. Today, it appears to be swelling. Allergies penicillamine Allergy (Unknown, Verified 07/31/23 10:07) unknown Penicillins Adverse Reaction (Intermediate, Verified 07/31/23 10:07) Anaphylaxis Medication List - Last Reconciled 07/31/23 by Moises Denny MD aspirin (Adult Low Dose Aspirin) 81 mg PO DAILY atorvastatin 80 mg PO DAILY 90 days metformin 250 mg (1/2 x 500 mg) PO DAILY 30 days Tobacco use date assessed: 07/31/23 Fall risk assessment: No Falls in past year Last assessed Fall Risk: 07/31/23 HPI neck shoulder pain HPI Details 68 y/o male presents today with complain ts of neck/shoulder pain. He denies any injury but he notes he had been doing arm over the head work for a minute or two. He denies any chest pain or shortness of breath. He denies any numbness. He reports pain is not excruciating but the discomfort is there. [facility] Medical History Enlarged thoracic aorta Hyperlipidemia CAD (coronary artery disease) Surgical History History of open reduction and internal fixation (ORIF) procedure Family History Mother No problems noted. Father CVD (cardiovascular disease) Brother Hx of CABG Brother No problems noted. Son No problems noted. Son No problems noted. Daughter No problems noted. Social History Household Members: Spouse Housing: House Alcohol intake: current Alcohol intake frequency: other Comment: Sporadic drinker-more socially Patient Tobacco Use Status: Former Tobacco user Tobacco use type: Cigarette Years Smoked: 30 e-Cigarette/Vaping Use: Never Used service: No Current occupational status: retired Current occupational exposures/hazards: No Sexual orientation: Unable to collect Gender identity: Unable to collect Cognitive needs: No Hearing needs: Yes Vision needs: Yes Questionnaire Thrive Questionnaire Date Thrive assessed: 05/22/22 LUIS-7 AMB Questionnaire LUIS-7 Date LUIS - 7 assessed: 08/21/22 Source: Developed by Drs. Larry Stockton, Bridget Nielsen, Didier Hernandez and colleagues, with an educational toya from [employer]. Review of Systems Const Denies chills, Denies fatigue, Denies fever(s), Denies headache(s) and Denies weakness ENT Denies dizziness and Denies headache(s) Card Denies chest pain, Denies lightheadedness, Denies dyspnea and Denies other (Palpitations) Resp Denies cough, Denies dyspnea, Denies wheezing and Denies other ( shortness of breath) Musc Denies numbness and Denies tingling Neuro Denies dizziness, Denies headache(s), Denies numbness, Denies tingling, Denies paresthesias and Denies weakness Psych Denies anxiety and Denies depression Endo Denies fatigue Aller/Immun Denies wheezing Physical exam (Primary Care) Vital Signs: Last Vital Signs Pulse 57 07/31/23 10:01 BP 128/72 07/31/23 10:01 BMI result Body Mass Index 29.0 Tobacco/Smoking Status: Tobacco use Status Tobacco use date assessed 07/31/23 07/31/23 10:12 Patient Tobacco Use Status Former Tobacco user 07/31/23 10:04 Tobacco use type Cigarette 07/31/23 10:04 e-Cigarette/Vaping Use Never Used 07/31/23 10:04 Thrive Assessment: Date of Thrive Assessment Date Thrive assessed 05/22/22 07/31/23 10:04 Const General: no acute distress and well developed Nutritional Appearance: well nourished Orientation/consciousness: patient oriented x3 HENMT Head: Yes normocephalic and Yes atraumatic Eyes General: appearance normal, both eyes and all related structures Pupils: Equal, round and reactive pupils present EOM: EOMs intact bilaterally Resp Effort & Inspection: normal respiratory effort Auscultation: clear to auscultation bilaterally Cardio Rate: regular rate Rhythm: regular rhythm Heart sounds: S1 normal heart sound present, S2 normal heart sound present, no gallops, no murmurs and no rubs Neuro General: patient oriented x3 and gait normal Cranial nerves: Yes Equal, round and reactive pupils present Psych Affect: normal affect Assessment and Plan Assessment & Plan (1) Mass of right side of neck: Code(s): R22.1 - Localized swelling, mass and lump, neck Plan: Swelling?at?right?side?of?neck?and?supra?clavicular?space. No?trauma Unclear?cause Check?ultrasound?and?lab?work. Will?follow-up?on?Sunday?as?patient?is?going?away?next?week (2) Shoulder pain: Code(s): M25.519 - Pain in unspecified shoulder Plan: Right?shoulder?pain?which?may?be?secondary?to dependent?swelling?from?neck Check?chest?x-ray (3) Supraclavicular mass: Code(s): R22.2 - Localized swelling, mass and lump, trunk Plan: As?above,?check?chest?x-ray Orders: Orders XR chest 2V Today R22.2 - Localized swelling, mass and lump, trunk Basic Metabolic Panel Today R22.1 - Localized swelling, mass and lump, neck, Z00.00 - Encounter for general adult medical examination without abnormal findings US soft tiss head and/or neck Today R22.1 - Localized swelling, mass and lump, neck Complete Blood Count Auto Diff Today R22.1 - Localized swelling, mass and lump, neck, Z00.00 - Encounter for general adult medical examination without abnormal findings Medications: New diclofenac sodium 1% (Arthritis Pain (diclofenac)) apply to single elbow, wrist or hand; for hand includes palm/fingers/back of hand 2 grams topical QID 100 grams 1RF 14 days Coding Level of Care Code Est Pt Level 3 (25479) Diagnoses Mass of right side of neck R22.1 Shoulder pain M25.519 Supraclavicular mass R22.2
== END 2023-07-31 11:00 | disposition home or self-care (01) ==
PROVIDERS: PCP Family Medicine; Visit Provider Family Medicine
DX: R22.1 Localized swelling, mass and lump, neck (principal); M25.519 Pain in unspecified shoulder; R22.2 Localized swelling, mass and lump, trunk
CPT/HCPCS: 99213

== ENCOUNTER 2023-07-31 10:54 | Outpatient (REF) | payer MEDICARE, SELFPAY ==
[2023-07-31 13:33] LABS: MANUAL DIFF FLAG NO
[2023-07-31 13:37] LABS: Basophils Percent Auto 0.5 % (0-2); Eosinophils Absolute Auto 0.4 X10*3/uL (0.0-0.4); Eosinophils Percent Auto 4.7 % (0-4); Hematocrit 50.3 % (42.0-52.0); Hemoglobin 16.8 g/dl (14.0-18.0); Imm Gran Abs Auto 0.02 X10*3/uL (0.00-0.03); Imm Gran Pct Auto 0.3 % (0.0-0.4); Mean Corpuscular HGB Conc 33.4 g/dl (31.0-36.0); Mean Corpuscular Hemoglobin 30.7 pg (27.0-33.0); Mean Corpuscular Volume 91.8 fL (80.0-98.0); Mean Platelet Volume 9.7 fL (9.4-12.4); Monocytes Absolute Auto 0.6 X10*3/uL (0.1-1.2); Monocytes Percent Auto 8.2 % (2-11); Neutrophils Absolute Auto 4.6 x10*3/uL (2.0-8.3); Neutrophils Percent Auto 60.3 % (45-73); Platelet Count 173 X10*3/uL (160-400); Red Blood Count 5.48 X10*6/uL (4.60-5.80); Red Cell Distribution Width 13.1 % (11.0-16.0); White Blood Count 7.7 X10*3/uL (4.8-10.8)
[2023-07-31 13:44] LABS: Anion Gap 11 (12-20); Blood Urea Nitrogen 19 mg/dL (9-16); Calcium 9.9 mg/dL (8.4-10.2); Carbon Dioxide 29 mmol/L (22-29); Chloride 105 mmol/L (96-108); Estimated Glomerular Filt Rate > 60; Glucose Random 94 mg/dL (60-115); Potassium 4.9 mmol/L (3.3-5.1); Sodium 140 mmol/L (135-145)
== END 2023-07-31 10:55 | disposition home or self-care (01) ==
LOC: HO.WFDLDS 10:54
PROVIDERS: Visit Provider Family Medicine
DX: Z00.00 Encounter for general adult medical examination without abnormal findings (principal); R22.1 Localized swelling, mass and lump, neck
CPT/HCPCS: 36415; 80048; 85025

== ENCOUNTER 2023-07-31 12:04 | Outpatient (REF) | payer MEDICARE, SELFPAY ==
--- NOTE | ~2023-07-31 | XR_ITS ---
EXAMINATION: XR CHEST CLINICAL INFORMATION: Peripheral edema COMPARISON: None available. TECHNIQUE: 2 views of the chest were obtained. FINDINGS: vascularity. LUNGS: Lungs are clear. No pneumothorax is seen. BONES: Bony skeleton is intact. XR/XR chest 2V IMPRESSION: Normal chest x-ray.
--- NOTE | ~2023-07-31 | US_ITS ---
EXAMINATION: US SOFT TISSUE NECK CLINICAL INFORMATION: Localized swelling, mass and lump, neck Swelling and right side of neck and supraclavicular space. No trauma. COMPARISON: None available. TECHNIQUE: Ultrasound of the neck soft tissues, right supraclavicular neck and left side for comparison, is performed with high- frequency porter-scale imaging and color Doppler. FINDINGS: Ultrasound of the area of concern indicated by the patient demonstrates heterogeneous tissue in the area of swelling in the left neck/shoulder area. There is slight increased echogenicity of this area which may represent edema. No other obvious abnormality is seen. US/US soft tiss head and/or neck IMPRESSION: Heterogeneous tissue in the area of swelling indicated by the patient in the left neck/shoulder area. This may represent edema. Further evaluation should be based on clinical grounds. CT scan of this area could be obtained, depending on level of clinical concern.
== END 2023-07-31 12:05 | disposition home or self-care (01) ==
LOC: HO.US 12:04
PROVIDERS: PCP Family Medicine; Visit Provider Family Medicine
DX: R22.1 Localized swelling, mass and lump, neck (principal); R22.2 Localized swelling, mass and lump, trunk
CPT/HCPCS: 71046; 76536

== ENCOUNTER 2023-08-03 15:16 | Outpatient (AMB) | payer MEDICARE, SELFPAY ==
--- NOTE | 2023-08-03 15:12 | A.OFFPC_ITS ---
Intake Visit Reasons: f/u shoulder/neck pain Intake Note: Patient is following up on x-ray and ultrasound. Allergies penicillamine Allergy (Unknown, Verified 08/03/23 15:13) unknown Penicillins Adverse Reaction (Intermediate, Verified 08/03/23 15:13) Anaphylaxis Tobacco use date assessed: 08/03/23 HPI f/u shoulder/neck pain HPI Details Telemedicine?encounter?to?follow-up?neck?and?shoulder?swelling CBC?was?essentially?unremarkable?though?has?mild?eosinophilia Chest?x-ray?negative Ultrasound?showed?heterogeneous?swelling?without?lymph?nodes?or?masses. Patient?notes?that?symptoms?have?almost?completely?resolved. [facility] Medical History Enlarged thoracic aorta Hyperlipidemia CAD (coronary artery disease) Surgical History History of open reduction and internal fixation (ORIF) procedure Family History Mother No problems noted. Father CVD (cardiovascular disease) Brother Hx of CABG Brother No problems noted. Son No problems noted. Son No problems noted. Daughter No problems noted. Social History Household Members: Spouse Housing: House Alcohol intake: current Alcohol intake frequency: other Comment: Sporadic drinker-more socially Patient Tobacco Use Status: Former Tobacco user Tobacco use type: Cigarette Years Smoked: 30 e-Cigarette/Vaping Use: Never Used service: No Current occupational status: retired Current occupational exposures/hazards: No Sexual orientation: Unable to collect Gender identity: Unable to collect Cognitive needs: No Hearing needs: Yes Vision needs: Yes Questionnaire Thrive Questionnaire Date Thrive assessed: 05/22/22 LUIS-7 AMB Questionnaire LUIS-7 Date LUIS - 7 assessed: 08/21/22 Source: Developed by Drs. Larry Stockton, Bridget Nielsen, Didier Hernandez and colleagues, with an educational toya from [employer]. Review of Systems Const Denies chills, Denies fatigue, Denies fever(s), Denies headache(s) and Denies weakness ENT Denies dizziness and Denies headache(s) Card Denies chest pain, Denies lightheadedness, Denies dyspnea and Denies other (Palpitations) Resp Denies cough, Denies dyspnea, Denies wheezing and Denies other ( shortness of breath) Musc Denies numbness and Denies tingling Neuro Denies dizziness, Denies headache(s), Denies numbness, Denies tingling, Denies paresthesias and Denies weakness Psych Denies anxiety and Denies depression Endo Denies fatigue Mac/Lymph Details: Swelling?at?neck?and?shoulder?almost?completely?resolved Aller/Immun Denies wheezing Physical exam (Primary Care) Tobacco/Smoking Status: Tobacco use Status Tobacco use date assessed 08/03/23 08/03/23 15:14 Patient Tobacco Use Status Former Tobacco user 08/03/23 15:13 Tobacco use type Cigarette 08/03/23 15:13 e-Cigarette/Vaping Use Never Used 08/03/23 15:13 Thrive Assessment: Date of Thrive Assessment Date Thrive assessed 05/22/22 08/03/23 15:13 Const Other: Telemedicine?encounter.??Audio?only.?? Telehealth Telehealth Location of provider rendering services: practice address Location of patient: address on file Patient Identification confirmed using: Name, : Yes Telehealth method: voice only Patient verbally consented to treatment: Yes Patient verbally consented to billing insurance company: Yes Patient informed of any privacy concerns related to visit: Yes Minutes spent on Phone/Video with Pt.: 9 Assessment and Plan Assessment & Plan (1) Mass of right side of neck: Code(s): R22.1 - Localized swelling, mass and lump, neck Plan: Swelling?at?right?side?of?neck?has?almost?completely?resolved. Lab?work,?chest?x-ray?and?ultrasound?of?the?neck?are?reassuring. He?will?let?me?know?if?not?completely?resolving?or?if?worsens?at?any?time. Coding Level of Care Code Tele Est Pt Level 2 (09861) Diagnoses Mass of right side of neck R22.1
== END 2023-08-03 17:00 ==
LOC: HO.HMGFM 15:16
PROVIDERS: PCP Family Medicine; Visit Provider Family Medicine
DX: R22.1 Localized swelling, mass and lump, neck (principal)
CPT/HCPCS: 99441

== ENCOUNTER → 2023-08-17 07:51 | Outpatient (REF) | payer MEDICARE, SELFPAY ==
--- NOTE | 2023-08-17 07:53 | CA_ITS ---
Transthoracic Echocardiogram Patient (Last, First, Middle): Valeria Coffman C Gender: Male Date of : 1955 Age: 68 Procedure Date: 08/17/2023 Procedure Type: Transthoracic Echocardiogram Location: OP Height: 182.88 cm Weight: 99.79 kg BSA: 2.22 m2 Heart Rate: bpm BP: 126 / 82 mmHg Harvest Contractor: TO Referring MD: Demond Montelongo MD Symptoms: I77.89 - Other specified disorders of arteries and arterioles Study Quality: Fair/Contrast ECG Rhythm: Sinus Conclusions: - The left ventricular systolic function is normal. The calculated ejection fraction is 60% by biplane method. - No obvious valvular pathology seen on this study. - There is mild dilatation of the sinuses of Valsalva measuring 4.52 cm and mild dilatation of the ascending aorta measuring 4.20 cm. Findings Procedure Information Contrast agent, definity, is being given per protocol without apparent complications. Left Ventricle Normal left ventricular cavity size. The left ventricular systolic function is normal. The calculated ejection fraction is 60% by biplane method. There is no evidence of regional wall motion abnormalities. Diastolic function is normal for age. There is mild septal and mild basal asymmetric hypertrophy. Right Ventricle Normal right ventricular cavity size and systolic function. Atria Both atria are normal in size. Aortic Valve There is a normal trileaflet aortic valve. There is no aortic valve stenosis. There is no aortic valve regurgitation. Mitral Valve The mitral valve appears normal. There is trace mitral valve regurgitation. There is no mitral valve stenosis. Pulmonic Valve The pulmonic valve is likely normal. Tricuspid Valve Normal tricuspid valve structure. There is mild tricuspid valve regurgitation. There is no evidence of pulmonary hypertension. Great Vessels There is mild dilatation of the sinuses of Valsalva measuring 4.52 cm and mild dilatation of the ascending aorta measuring 4.20 cm. Venous The inferior vena cava is mildly dilated and collapses greater than 50% with inspiration. Pericardium/Pleural There is no evidence of pericardial effusion. Prior Study Comparison Changes noted compared to prior study dated: 07/20/2022. slight change in ascending aortic dimension; could also be technical. Recommendations, Care & Conclusions No obvious valvular pathology seen on this study. Measurements 2D Linear Measurements IVSd: 1.11 0.6-0.9/0.6-1.0 cm LVIDd: 4.00 3.9-5.3/4.2-5.9 cm LVIDd Index: 1.80 2.4-3.2/2.2-3.1 cm/m2 LVIDs: 2.61 2.0-3.6 cm LVPWd: 0.86 0.7-1.1 cm LA Diam: 3.30 2.7-3.8/3.0-4.0 cm LAIDs Index: 1.49 1.5-2.3 cm/m2 LV Mass: 154.17 67-162/88-224 g LV Mass Index: 69.45 43-95/49-115 g/m2 LVOT Diam: 2.40 3.0+(-)1.3 cm 2D Systolic Function EF 4C: 59.60 >55% EF 2C: 59.80 >55% EF BiP: 59.50 >55% Mitral Valve MV Pk E: 0.54 MV PK A: 0.43 MV Decel Time: 238.00 E/A: 1.30 E'Lateral: 9.25 E'Medial: 4.57 E/E' Med: 11.80 E/E' Lat: 5.80 PHT: 70.00 MVA PHT: 3.14 Decel [place]: 2.27 Aortic Valve AoV Pk Ronald: 1.07 AoV Mn Ronald: 0.78 AoV VTI: 0.24 AoV Pk Grad: 5.00 Aov Mn Grad: 3.00 RADHA Cont.VTI: 4.00 LVOT LVOT Pk Ronald: 0.99 LVOT Mn Ronald: 0.60 LVOT VTI: 0.22 LVOT Pk Grad: 4.00 LVOT Mn Grad: 2.00 LVOT Diam: 2.40 LVOT Area: 4.52 Diastolic Function MV Pk E: 0.54 MV Pk A: 0.43 E/A: 1.30 E'Medial: 4.57 E/E' Med: 11.80 E' Laterial: 9.25 E/E' Lat: 5.80 Right Ventricle TAPSE (mm): 20.90 TVS' Ronald: 10.00 Tricuspid Valve TR Pk Ronald: 2.31 TR Pk Grad: 21.00 RA Press: 8.00 RVSP: 29.00 Great Vessels Aorta Sinus of Valsalva: 4.52 2.0-3.[address] [place]: 3.01 1.7-3.4 cm Ao Asc: 4.20 2.1-3.4 cm Ao Arch: 3.20 Updated in Other Vendor System with Status of Final Carlos Verde MD electronically signed on 08/17/2023 10:10:08 AM with status of Final
== END ==
LOC: HO.CARD 07:51
PROVIDERS: PCP Family Medicine; Visit Provider Internal Medicine Cardiovascular Disease
DX: I77.89 Other specified disorders of arteries and arterioles (principal)
CPT/HCPCS: 93306; Q9957

== ENCOUNTER → 2023-08-17 07:53 | Outpatient (BNV) | payer MEDICARE, SELFPAY | PROVIDERS: PCP Family Medicine; Visit Provider Internal Medicine | DX: I36.1 Nonrheumatic tricuspid (valve) insufficiency (principal) | CPT/HCPCS: 93306 ==

== ENCOUNTER 2023-08-23 13:52 | Outpatient (AMB) | payer MEDICARE, SELFPAY ==
--- NOTE | 2023-08-23 14:05 | A.OFFVIS_ITS ---
Intake Intake Visit Reasons: Elevated PSA Intake Note: NEW Patient presents today to established treatment for Elevated PSA: 4.99 ng/mL, 06/01/2024. Meds- None Allergies to Antibiotic- Penicillamine & Penicillin Blood Thinner- Aspirin Post Void Residual: Machine Tester Required: No Accompanied by: Self / Same As Patient Allergies penicillamine Allergy (Unknown, Verified 09/07/23 13:26) unknown Penicillins Adverse Reaction (Intermediate, Verified 09/07/23 13:26) Anaphylaxis HPI HPI Comments History of Present Illness Details Valeria is a 68-year-old male who is here for evaluation due to elevated PSA. He denies irritative voiding symptoms. Past medical history significant for coronary artery disease he is followed by Cardiology. PSA 06/01/2023 is 4.99 ng/mL I have discussed that elevated PSA may indicate changes in the prostate including benign enlargement, cancer and an inflammatory condition. I have discussed doing a biopsy has risks and that management in early detection of prostate cancer may include active surveillance. Plan is to repeat PSA. If remains elevated will discuss prostate biopsy to be scheduled. [facility] Medical History Enlarged thoracic aorta Hyperlipidemia CAD (coronary artery disease) Surgical History Hx of eye surgery History of open reduction and internal fixation (ORIF) procedure Family History Mother No problems noted. Father CVD (cardiovascular disease) Brother Hx of CABG Brother No problems noted. Son No problems noted. Son No problems noted. Daughter No problems noted. Social History Household Members: Spouse Housing: House Alcohol intake: current Alcohol intake frequency: other Comment: Sporadic drinker-more socially Patient Tobacco Use Status: Former Tobacco user Tobacco use type: Cigarette Years Smoked: 30 e-Cigarette/Vaping Use: Never Used service: No Current occupational status: retired Current occupational exposures/hazards: No Sexual orientation: Unable to collect Gender identity: Unable to collect Cognitive needs: No Hearing needs: Yes Vision needs: Yes Review of Systems Const All systems reviewed & are unremarkable except as noted in HPI and below Reports no additional complaints Eyes Reports no additional complaints ENT Reports no additional complaints Card Denies dyspnea Resp Denies cough and Denies dyspnea GI Reports no additional complaints Musc Reports no additional complaints Skin/Breast Denies rash and Denies unusual bruising Neuro Reports no additional complaints Psych Reports no additional complaints Endo Reports no additional complaints Mac/Lymph Reports no additional complaints Aller/Immun Reports no additional complaints Physical Exam Const General: healthy appearing, no acute distress and well developed Orientation/consciousness: patient oriented x3 HEENT Head: Yes normocephalic and Yes atraumatic Eyes Conjunctivae: conjunctivae normal Neck Neck: Yes normal visual inspection Chest Chest palpation & inspection: normal inspection of the chest Resp Effort & Inspection: normal respiratory effort Cardio Rate: regular rate GI Inspection: Yes normal to inspection Palpation (GI): Soft to palpation Other: Prostate Exam: Smooth as suspicious nodules palpated Skin General skin exam: no rashes or lesions noted Neuro General: patient oriented x3 Extrem General: No pedal edema Psych Appearance: grossly normal Affect: normal affect Results AMB Urinalysis, Automated UA Leukoctes 0 Skyler/uL Last Edit by FEI Serra on 08/23/23 14:13 UA Nitrite Negative Last Edit by FEI Serra on 08/23/23 14:13 UA Urobilinogen 0.2 mg/dL Last Edit by FEI Serra on 08/23/23 14:1 3 UA Protein 0 mg/dL Last Edit by FEI Serra on 08/23/23 14:13 UA pH 6.5 Last Edit by FEI Serra on 08/23/23 14:13 UA Blood 0 Eduardo/uL Last Edit by FEI Serra on 08/23/23 14:13 UA Specific [place] 1.010 Last Edit by FEI Serra on 08/23/23 14: 13 UA Ketone Negative Last Edit by FEI Serra on 08/23/23 14:13 UA Bilirubin 0 mg/dL Last Edit by FEI Serra on 08/23/23 14:13 UA Glucose 0 mg/dL Last Edit by FEI Serra on 08/23/23 14:13 Results Reviewed Results Reviewed: Laboratory Last Values Urine pH (Auto) 6.5 08/23/23 14:10 Specific [place] (Auto) 1.010 08/23/23 14:10 Urine Protein (Auto) 0 mg/dL 08/23/23 14:10 Glucose (UA)(Auto) 0 mg/dL 08/23/23 14:10 Urine Ketones (Auto) Negative 08/23/23 14:10 Urine Blood (Auto) 0 Eduardo/uL 08/23/23 14:10 Urine Nitrite (Auto) Negative 08/23/23 14:10 Urine Bilirubin (Auto) 0 mg/dL 08/23/23 14:10 Urine Urobilinogen (Auto) 0.2 mg/dL 08/23/23 14:10 Leukocyte Esterase (Auto) 0 Skyler/uL 08/23/23 14:10 Assessment & Plan Assessment & Plan (1) Elevated PSA: Code(s): R97.20 - Elevated prostate specific antigen [PSA] Plan Repeat PSA Orders: Orders AMB Urinalysis Automated 08/23/23 Z13.9 - Encounter for screening, unspecified PSA,Total (Free>4and<10) 08/24/23 R97.20 - Elevated prostate specific antigen [PSA] Patient Instructions: The patient had an opportunity to ask questions regarding treatment plan. All questions were answered. Laboratory studies and physical exam results were discussed and reviewed in detail. No major barriers to understanding were identified. The patient expressed understanding and agreement with the above treatment plan. The patient is aware they should contact our office by phone for worsening of their current condition or the appearance of new symptoms. Compliance is encouraged with any medications and followup testing that is ordered. It is a privilege to be allowed the opportunity to participate in the urologic care of your patient. If you have any questions or concerns regarding treatment for the above conditions please do not hesitate to contact me. The office telephone contact is [phone]. This note is constructed in part using voice recognition software. While every effort has been made to ensure accuracy gas torch brazier errors may have been included. Yours sincerely, Clem Blank MD Coding Level of Care Code New Pt Level 3 (26606) Diagnoses Elevated PSA R97.20
== END 2023-08-23 15:21 | disposition home or self-care (01) ==
PROVIDERS: PCP Family Medicine; Visit Provider Urology
DX: R97.20 Elevated prostate specific antigen [PSA] (principal)
CPT/HCPCS: 99203

== ENCOUNTER → 2023-08-23 13:52 | Outpatient (BNVA) | payer MEDICARE, SELFPAY | PROVIDERS: PCP Family Medicine; Visit Provider Urology | DX: R97.20 Elevated prostate specific antigen [PSA] (principal) | CPT/HCPCS: 81003; 99202 ==

== ENCOUNTER 2023-08-24 08:11 | Outpatient (REF) | payer OTHER, SELFPAY ==
[2023-08-24 13:05] LABS: PSA,Total (Free>4and<10) 4.89 ng/mL (0.00-4.00)
[2023-08-28 11:34] LABS: Free Prostate Spec Ag 0.7 ng/mL; Percent Free Prostate Spec Ag 16 % (calc) (>25); Prostate Specific Ag Total 4.5 ng/mL (< OR = 4.0)
== END 2023-08-24 08:12 | disposition home or self-care (01) ==
LOC: HO.WFDLDS 08:11
PROVIDERS: Visit Provider Urology
DX: R97.20 Elevated prostate specific antigen [PSA] (principal); Z12.5 Encounter for screening for malignant neoplasm of prostate
CPT/HCPCS: 36415; 84153; 84154

== ENCOUNTER 2023-08-28 13:26 | Outpatient (AMB) | payer MEDICARE, SELFPAY ==
--- NOTE | 2023-08-28 13:47 | MHC.OFFVIS ---
Intake Vital Signs 08/28/23 13:48 Height 6 ft 1 in Weight 222 lb 10.67 oz BMI 29.4 BP 112/70 Blood Pressure Location Lt brachial Position Sitting Pulse 75 Intake Visit Reasons: 1 YEAR FUP AFTRE STRESS ECHO Intake Note: 1 year follow-up after echo feeling good Summer Analyst Required: No Allergies penicillamine Allergy (Unknown, Verified 08/23/23 14:07) unknown Penicillins Adverse Reaction (Intermediate, Verified 08/23/23 14:07) Anaphylaxis Medication List - Last Reconciled 08/28/23 by Demond Montelongo MD aspirin (Adult Low Dose Aspirin) 81 mg PO DAILY atorvastatin 80 mg PO DAILY 90 days metformin 250 mg (1/2 x 500 mg) PO DAILY 30 days HPI HPI Comments History of Present Illness Details Valeira comes for follow-up. He has been doing well. He has been regularly walking and exercising and has no restriction. Denies any exertional chest pain or shortness of breath. Denies any heart failure symptoms. Denies any prolonged palpitation irregular heartbeat. Takes all his medications. His last LDL was 78 mg/dL. He has been started on metformin therapy for elevated sugars. [facility] Medical History Enlarged thoracic aorta Hyperlipidemia CAD (coronary artery disease) Surgical History Hx of eye surgery History of open reduction and internal fixation (ORIF) procedure Family History Mother No problems noted. Father CVD (cardiovascular disease) Brother Hx of CABG Brother No problems noted. Son No problems noted. Son No problems noted. Daughter No problems noted. Social History Household Members: Spouse Housing: House Alcohol intake: current Alcohol intake frequency: other Comment: Sporadic drinker-more socially Patient Tobacco Use Status: Former Tobacco user Tobacco use type: Cigarette Years Smoked: 30 e-Cigarette/Vaping Use: Never Used service: No Current occupational status: retired Current occupational exposures/hazards: No Sexual orientation: Unable to collect Gender identity: Unable to collect Cognitive needs: No Hearing needs: Yes Vision needs: Yes Review of Systems Const Denies chills, Denies fatigue, Denies fever(s), Denies frequent falls, Denies weakness, Denies weight gain and Denies weight loss ENT Denies dizziness Card Denies chest pain, Denies leg edema, Denies lightheadedness, Denies palpitations, Denies dyspnea, Denies dyspnea on exertion, Denies orthopnea and Denies other (loss of consciousness) Resp Denies cough, Denies dyspnea and Denies dyspnea on exertion GI Denies hematochezia and Denies change in stool character Musc Denies abnormal gait, Denies muscle weakness, Denies numbness, Denies radiating pain into limb and Denies tingling Neuro Denies abnormal gait, Denies dizziness, Denies frequent falls, Denies numbness, Denies tingling and Denies weakness Endo Denies fatigue and Denies palpitations Physical Exam Vital Signs: Last Vital Signs Pulse 75 08/28/23 13:48 BP 112/70 08/28/23 13:48 BMI result Body Mass Index 29.4 Const General: cooperative, comfortable, no acute distress, alert and awake Nutritional Appearance: average body habitus Orientation/consciousness: patient oriented x3 Limitations: no limitations Neck Neck: Yes trachea midline and Yes no JVD Resp Effort & Inspection: normal respiratory effort Auscultation: clear to auscultation bilaterally Cardio Jugular venous distension: no JVD Palpation: normal PMI Rate: regular rate Rhythm: regular rhythm Heart sounds: S1 normal heart sound present, S2 normal heart sound present, no click, no gallops and no murmurs GI Auscultation: normal bowel sounds Skin General skin exam: no rashes or lesions noted Neuro General: patient oriented x3 and no focal motor deficits Extrem General: Yes no clubbing, cyanosis or edema Office Procedures EKG Details: EKG shows normal sinus rhythm with normal EKG 59730-[id number], Complete Assessment & Plan Assessment & Plan (1) CAD (coronary artery disease): Code(s): I25.10 - Atherosclerotic heart disease of [place] coronary artery without angina pectoris Plan: CAD based on heavy calcium score in all 3 coronary arteries with normal stress echocardiogram suggesting that he has no obstructive coronary artery disease. He continues to exercise at high level without any symptoms. Continue aggressive risk factor modification. Continue low-dose aspirin therapy for life. Continue aggressive risk factor modification. His LDL is not well optimized will therefore add ezetimibe 10 mg to his regimen to target goal LDL closer to 60 mg/dL. Continue aggressive blood pressure control which is currently well optimized encouraged to continue to participate in physical activity as tolerated. (2) Enlarged thoracic aorta: Comment: 4 cm by echocardiogram June 2021 Code(s): I77.89 - Other specified disorders of arteries and arterioles Plan: Mild thoracic aortic enlargement at 4.2 cm. Has remained stable more or less. Continue aggressive vascular risk factor modifications above. No indication for surgical intervention at this point time. Continue monitor annually by echocardiogram. Advised to avoid sudden strenuous isometric exercise. Will follow up in the clinic in 1 year's time, sooner p.r.n.. Thank you allowing me to partake in his care. Orders: Orders CA echo transthoracic complete 1 Year I77.89 - Other specified disorders of arteries and arterioles Lipid Panel 3 Months I25.10 - Atherosclerotic heart disease of [place] coronary artery without angina pectoris Medications: New ezetimibe 10 mg PO DAILY 90 tabs 3RF Coding Level of Care Code Est Pt Level 4 (55723) Diagnoses CAD (coronary artery disease) I25.10 Enlarged thoracic aorta I77.89 CPT Codes EKG - CPT: 24180-[id number], Complete ([id number])
[2023-08-28 13:48] VITALS: BP 112/70; PULSE 75; BMI 29.4
== END 2023-08-28 14:11 | disposition home or self-care (01) ==
PROVIDERS: PCP Family Medicine; Visit Provider Internal Medicine Cardiovascular Disease
DX: I25.10 Atherosclerotic heart disease of native coronary artery without angina pectoris (principal); I77.89 Other specified disorders of arteries and arterioles
CPT/HCPCS: 93010; 99214

== ENCOUNTER → 2023-08-28 13:26 | Outpatient (BNVA) | payer MEDICARE, SELFPAY | PROVIDERS: PCP Family Medicine; Visit Provider Internal Medicine Cardiovascular Disease | DX: I25.10 Atherosclerotic heart disease of native coronary artery without angina pectoris (principal); I77.89 Other specified disorders of arteries and arterioles | CPT/HCPCS: 93005; 99212 ==

== ENCOUNTER 2023-09-07 13:25 | Outpatient (AMB) | payer MEDICARE, SELFPAY ==
--- NOTE | 2023-09-07 13:25 | A.OFFVIS_ITS ---
Intake Intake Visit Reasons: 2w/PSA Intake Note: Patient presents today for a follow-up PSA Results: 4.89 ng/mL, 08/24/2023. Meds- None Allergies to Antibiotic- Penicillin Blood Thinner- Aspirin Reliability Engineer Required: No Accompanied by: Self / Same As Patient Allergies penicillamine Allergy (Unknown, Verified 09/07/23 13:26) unknown Penicillins Adverse Reaction (Intermediate, Verified 09/07/23 13:26) Anaphylaxis Medication List - Last Reconciled 09/07/23 by Clem Blank MD aspirin (Adult Low Dose Aspirin) 81 mg PO DAILY atorvastatin 80 mg PO DAILY 90 days ezetimibe 10 mg PO DAILY metformin 250 mg (1/2 x 500 mg) PO DAILY 30 days HPI HPI Comments History of Present Illness Details 09/07/2023- Valeria is a 68-year-old male who was initially evaluated for elevated PSA on 08/23/2023. I discussed repeating PSA. I have reviewed repeat PSA results on 08/24/2023 was 4.89 % free 16. I have discussed proceeding with prostate biopsy. The patient had excellent questions regarding imaging modalities and risks and benefits of the prostate biopsy. Plan will be to get an MRI for further evaluation of the prostate. 08/23/2023--Valeria is a 68-year-old male who is here for evaluation due to elevated PSA. He denies irritative voiding symptoms. Past medical history significant for coronary artery disease he is followed by Cardiology. PSA 06/01/2023 is 4.99 ng/mL I have discussed that elevated PSA may indicate changes in the prostate including benign enlargement, cancer and an inflammatory condition. I have discussed doing a biopsy has risks and that management in early detection of prostate cancer may include active surveillance. Plan is to repeat PSA. If remains elevated will discuss prostate biopsy to be scheduled. 09/07/2023--PLAN: MRI prostate. Repeat PSA in 4 months. [facility] Medical History Enlarged thoracic aorta Hyperlipidemia CAD (coronary artery disease) Surgical History Hx of eye surgery History of open reduction and internal fixation (ORIF) procedure Family History Mother No problems noted. Father CVD (cardiovascular disease) Brother Hx of CABG Brother No problems noted. Son No problems noted. Son No problems noted. Daughter No problems noted. Social History Household Members: Spouse Housing: House Alcohol intake: current Alcohol intake frequency: other Comment: Sporadic drinker-more socially Patient Tobacco Use Status: Former Tobacco user Tobacco use type: Cigarette Years Smoked: 30 e-Cigarette/Vaping Use: Never Used service: No Current occupational status: retired Current occupational exposures/hazards: No Sexual orientation: Unable to collect Gender identity: Unable to collect Cognitive needs: No Hearing needs: Yes Vision needs: Yes Review of Systems Const All systems reviewed & are unremarkable except as noted in HPI and below Reports no additional complaints Eyes Reports no additional complaints ENT Reports no additional complaints Card Denies dyspnea Resp Denies cough and Denies dyspnea GI Reports no additional complaints Musc Reports no additional complaints Skin/Breast Denies rash and Denies unusual bruising Neuro Reports no additional complaints Psych Reports no additional complaints Endo Reports no additional complaints Mac/Lymph Reports no additional complaints Aller/Immun Reports no additional complaints Assessment & Plan Assessment & Plan (1) Elevated PSA: Code(s): R97.20 - Elevated prostate specific antigen [PSA] Plan MR prostate, monitor PSA Orders: Orders MR pelvis w con 09/07/23 R97.20 - Elevated prostate specific antigen [PSA] Patient Instructions: The patient had an opportunity to ask questions regarding treatment plan. All questions were answered. Laboratory studies were discussed and reviewed in detail. No major barriers to understanding were identified. The patient expressed understanding and agreement with the above treatment plan. The patient is aware they should contact our office by phone for worsening of their current condition or the appearance of new symptoms. Compliance is encouraged with any medications and followup testing that is ordered. It is a privilege to be allowed the opportunity to participate in the urologic care of your patient. If you have any questions or concerns regarding treatment for the above conditions please do not hesitate to contact me. The office telephone contact is [phone]. This note is constructed in part using voice recognition software. While every effort has been made to ensure accuracy senior medical transcriptionist errors may have been included. Yours sincerely, Clem Blank MD Telehealth Telehealth Location of provider rendering services: practice address Location of patient: address on file Patient Identification confirmed using: Name, : Yes Telehealth method: voice only Patient verbally consented to treatment: Yes Patient verbally consented to billing insurance company: Yes Patient informed of any privacy concerns related to visit: Yes Minutes spent on Phone/Video with Pt.: 20 Coding Level of Care Code Tele Est Pt Level 4 (87329) Diagnoses Elevated PSA R97.20
== END 2023-09-07 14:26 | disposition home or self-care (01) ==
LOC: HO.HUSH 13:25
PROVIDERS: PCP Family Medicine; Visit Provider Urology
DX: R97.20 Elevated prostate specific antigen [PSA] (principal)
CPT/HCPCS: 99442

== ENCOUNTER → 2023-09-07 13:25 | Outpatient (BNVA) | payer MEDICARE, SELFPAY | PROVIDERS: PCP Family Medicine; Visit Provider Urology ==

== ENCOUNTER 2023-11-21 08:49 | Outpatient (REF) | payer MEDICARE, SELFPAY ==
[2023-11-21 12:34] LABS: Cholesterol 104 mg/dL (<200); HDL Cholesterol 51 mg/dL (>40); LDL Cholesterol Calculated 45 mg/dL (<100); Triglycerides 44 mg/dL (<150)
[2023-11-21 12:43] LABS: PSA,Total (Free>4and<10) 5.58 ng/mL (0.00-4.00)
[2023-11-23 13:38] LABS: Free Prostate Spec Ag 0.8 ng/mL; Percent Free Prostate Spec Ag 16 % (calc) (>25)
== END 2023-11-21 08:50 | disposition home or self-care (01) ==
LOC: HO.WFDLDS 08:49
PROVIDERS: Referring Provider Internal Medicine Cardiovascular Disease; Visit Provider Urology
DX: R97.20 Elevated prostate specific antigen [PSA] (principal); I25.10 Atherosclerotic heart disease of native coronary artery without angina pectoris; Z12.5 Encounter for screening for malignant neoplasm of prostate
CPT/HCPCS: 36415; 80061; 84153; 84154

== ENCOUNTER 2023-11-23 12:45 | Outpatient (AMB) | payer MEDICARE, SELFPAY ==
--- NOTE | 2023-11-23 13:03 | MHC.OFFVIS ---
Intake Visit Reasons: MRI & PSA RESULTS Allergies penicillamine Allergy (Unknown, Verified 09/07/23 13:26) unknown Penicillins Adverse Reaction (Intermediate, Verified 09/07/23 13:26) Anaphylaxis HPI Comments Details: 11/23/2023--Valeria is followed for elevated PSA. He is status post MRI of the prostate and repeat PSA. Dr. Martinez discussed results with the patient. MRI noted a 0.7 cm PIRAD 4 lesion at the left mid gland peripheral zone and a 0.5 cm PIRAD 4 lesion at the left apex peripheral zone. Repeat PSA 11/21/2023--total PSA 5.58 ng/mL, free PSA 0.8 ng/mL, 16%. MRI guided prostate biopsy discussed. Review of chart: 09/07/2023- Valeria is a 68-year-old male who was initially evaluated for elevated PSA on 08/23/2023. I discussed repeating PSA. I have reviewed repeat PSA results on 08/24/2023 was 4.89 % free 16. I have discussed proceeding with prostate biopsy. The patient had excellent questions regarding imaging modalities and risks and benefits of the prostate biopsy. Plan will be to get an MRI for further evaluation of the prostate. 08/23/2023--Valeria is a 68-year-old male who is here for evaluation due to elevated PSA. He denies irritative voiding symptoms. Past medical history significant for coronary artery disease he is followed by Cardiology. PSA 06/01/2023 is 4.99 ng/mL. I have discussed that elevated PSA may indicate changes in the prostate including benign enlargement, cancer and an inflammatory condition. I have discussed doing a biopsy has risks and that management in early detection of prostate cancer may include active surveillance. Plan is to repeat PSA. If remains elevated will discuss prostate biopsy to be scheduled. [facility] Medical History Enlarged thoracic aorta Hyperlipidemia CAD (coronary artery disease) Surgical History Hx of eye surgery History of open reduction and internal fixation (ORIF) procedure Family History Mother No problems noted. Father CVD (cardiovascular disease) Brother Hx of CABG Brother No problems noted. Son No problems noted. Son No problems noted. Daughter No problems noted. Social History Household Members: Spouse Housing: House Alcohol intake: current Alcohol intake frequency: other Comment: Sporadic drinker-more socially Patient Tobacco Use Status: Former Tobacco user Tobacco use type: Cigarette Years Smoked: 30 e-Cigarette/Vaping Use: Never Used service: No Current occupational status: retired Current occupational exposures/hazards: No Sexual orientation: Unable to collect Gender identity: Unable to collect Cognitive needs: No Hearing needs: Yes Vision needs: Yes Assessment & Plan Assessment & Plan (1) Elevated PSA: Code(s): R97.20 - Elevated prostate specific antigen [PSA] Category: Medical (2) Abnormal MRI: Code(s): R93.89 - Abnormal findings on diagnostic imaging of other specified body structures Category: Medical Plan Schedule MRI guided biopsy, MRI ultrasound fusion biopsy prostate Patient Instructions: The patient had an opportunity to ask questions regarding treatment plan. The patient expressed understanding and agreement with the above treatment plan. The patient is aware they should contact our office by phone for worsening of their current condition or the appearance of new symptoms. Compliance is encouraged with any medications and followup testing that is ordered. It is a privilege to be allowed the opportunity to participate in the urologic care of your patient. If you have any questions or concerns regarding treatment for the above conditions please do not hesitate to contact me. The office telephone contact is [phone]. This note is constructed in part using voice recognition software. While every effort has been made to ensure accuracy compliance review officer errors may have been included. Yours sincerely, Clem Blank MD Coding Level of Care Code Est Pt Level 4 (57527) Diagnoses Elevated PSA R97.20 Abnormal MRI R93.89
== END 2023-11-23 14:10 | disposition home or self-care (01) ==
PROVIDERS: PCP Family Medicine; Visit Provider Urology
DX: R97.20 Elevated prostate specific antigen [PSA] (principal); R93.89 Abnormal findings on diagnostic imaging of other specified body structures
CPT/HCPCS: 99214

== ENCOUNTER → 2023-11-23 12:45 | Outpatient (BNVA) | payer MEDICARE, SELFPAY | PROVIDERS: PCP Family Medicine; Visit Provider Urology | DX: R93.89 Abnormal findings on diagnostic imaging of other specified body structures (principal); R97.20 Elevated prostate specific antigen [PSA] | CPT/HCPCS: 99212 ==

== ENCOUNTER 2024-01-22 07:14 | Day surgery (SDC) | payer MEDICARE, SELFPAY ==
--- NOTE | 2024-01-18 14:26 | P.CONAN_ITS ---
Documented by User: Greta Ignacio NP 01/18/24 14:30 HPI - Anesthesia Eval Consult details Narrative: 68yo M for Targeted Prostate Needle Biopsy Follows [facility] cardiology. Last office visit 08/2023, stable with high activity tolerance. [facility] Active Problems Active Problems: All Active Problems Mass of right side of neck (Acute) Neck pain (Acute) Shoulder pain (Acute) Elevated PSA (Acute) Immunization counseling (Acute) Sciatica, left side (Acute) Hearing loss (Acute) Elevated fasting glucose (Acute) CVA (cerebral vascular accident) (Acute) Abnormal MRI (Acute) Enlarged thoracic aorta (Acute) Neoplasm of uncertain behavior of skin (Acute) Adult general medical exam (Acute) Screening for colon cancer (Acute) Screening for prostate cancer (Acute) Obstructive sleep apnea (Acute) Laboratory examination ordered as part of a routine general medical examination (Acute) Witnessed apneic spells (Acute) Excessive daytime sleepiness (Acute) Close exposure to 2019 novel coronavirus (Acute) CAD (coronary artery disease) (Acute) Hyperlipidemia (Acute) Past Medical History Medical History Pre-diabetes Enlarged thoracic aorta Hyperlipidemia CAD (coronary artery disease) Family History Family History Mother No problems noted. Father CVD (cardiovascular disease) Brother Hx of CABG Brother No problems noted. Son No problems noted. Son No problems noted. Daughter No problems noted. Surgical History Surgical History Hx of eye surgery History of open reduction and internal fixation (ORIF) procedure Social History Social History Household Members: Spouse Housing: House Alcohol intake: current Alcohol intake frequency: holidays/special occasions only Comment: Sporadic drinker-more socially Patient Tobacco Use Status: Former Tobacco user Tobacco use type: Cigarette Years Smoked: 30 Smoked in Last 30 Days: No e-Cigarette/Vaping Use: Never Used Use of substances other than those prescribed or required for medical reasons: No Are you DNR?: No Advance Directives: No Advance Directives Information Provided: Yes service: No Current occupational status: retired Current occupational exposures/hazards: No Sexual orientation: Unable to collect Gender identity: Unable to collect Cognitive needs: No Hearing needs: Yes Vision needs: Yes Meds Allergies Allergy/AdvReac Type Severity Reaction Status Date / Time penicillamine Allergy Unknown unknown Verified 01/22/24 07:45 Penicillins AdvReac Intermediate CHILDHOOD, Verified 01/22/24 07:57 Anaphylaxis Home Medications ?Medication ?Instructions ?Recorded ?Confirmed ?Last Taken ?Type aspirin 81 mg tablet,delayed 81 mg PO DAILY 04/19/20 01/22/24 01/08/24 History release (Adult Low Dose Aspirin) Exam Pertinent Lab Results Pertinent Lab Results: Laboratory Tests 07/31/23 10:56 WBC 7.7 Hgb 16.8 Hct 50.3 Plt Count 173 Sodium 140 Potassium 4.9 Chloride 105 Carbon Dioxide 29 BUN 19 H Creatinine 1.04 Narrative Narrative: EKG 08/2023 normal sinus rhythm with normal EKG ECHO 08/2023 Conclusions: - The left ventricular systolic function is normal. The calculated ejection fraction is 60% by biplane method. - No obvious valvular pathology seen on this study. - There is mild dilatation of the sinuses of Valsalva measuring 4.52 cm and mild dilatation of the ascending aorta measuring 4.20 cm. Assessment and Plan Assessment Anesthesia Assessment: Chart Reviewed Documented by User: Lety Maguire MD 01/22/24 08:53 PMFSH Past Medical History Medical History Pre-diabetes Enlarged thoracic aorta Hyperlipidemia CAD (coronary artery disease) Family History Family History Mother No problems noted. Father CVD (cardiovascular disease) Brother Hx of CABG Brother No problems noted. Son No problems noted. Son No problems noted. Daughter No problems noted. Family history of problems with anesthesia: No Surgical History Surgical History Hx of eye surgery History of open reduction and internal fixation (ORIF) procedure History of Problems with Anesthesia: No Social History Social History Household Members: Spouse Housing: House Alcohol intake: current Alcohol intake frequency: holidays/special occasions only Comment: Sporadic drinker-more socially Patient Tobacco Use Status: Former Tobacco user Tobacco use type: Cigarette Years Smoked: 30 Smoked in Last 30 Days: No e-Cigarette/Vaping Use: Never Used Use of substances other than those prescribed or required for medical reasons: No Are you DNR?: No Advance Directives: No Advance Directives Information Provided: Yes service: No Current occupational status: retired Current occupational exposures/hazards: No Sexual orientation: Unable to collect Gender identity: Unable to collect Cognitive needs: No Hearing needs: Yes Vision needs: Yes Meds Allergies Allergy/AdvReac Type Severity Reaction Status Date / Time penicillamine Allergy Unknown unknown Verified 01/22/24 07:45 Penicillins AdvReac Intermediate CHILDHOOD, Verified 01/22/24 07:57 Anaphylaxis Home Medications ?Medication ?Instructions ?Recorded ?Confirmed ?Last Taken ?Type aspirin 81 mg tablet,delayed 81 mg PO DAILY 04/19/20 01/22/24 01/08/24 History release (Adult Low Dose Aspirin) Exam Airway Mallampati Class: II TM Dist: >3cm Neck ROM: Full Heart: rrr Lungs: cta Assessment and Plan Assessment Anesthesia Assessment: Anesthesia Plan Discussed Final Anesthetic Review Family History of Problems with Anesthesia: No History of Problems with Anesthesia: No NPO: Yes ASA Class: III Final Preanesthetic Review: No Changes in Pt Med Stat, Meds/Allgs Chart Reviewed, Consent Obtained/Reviewed and Anes Risks/Benef Reviewed Patient Risk: Intermediate Procedure Risk: Low Anesthetic Plan Anesthetic Plan: GA Disposition: Standard PACU
[2024-01-22 07:50] VITALS: BMI 29.3
[2024-01-22 07:55] VITALS: BP 135/86; PULSE 64; RESP 16; TEMP 36.4; O2SAT 96
--- NOTE | 2024-01-22 07:59 | PC.NURSE ---
Patient took aspirin yesterday. Dr. Hagen made aware. Okay to proceed.
[2024-01-22] MEDS: Lactated Ringers 1,000 ML 100 ML IVCONT (08:11)
--- NOTE | 2024-01-22 08:42 | MHC.SHP ---
Pre-Procedural Eval Section A - 24 Hr Update-Section A only Date of Service: 01/22/24 The patient is an INPATIENT: No The patient has been examined within 24 hours of the surgical procedure. The History & Physical has been completed within 30 days and I have reviewed it.: Yes Section B - Complete if H&P > 30 days Chief Complaint: Elevated prostate specific antigen [PSA] Allergies: Allergies Allergy/AdvReac Type Severity Reaction Status Date / Time penicillamine Allergy Unknown unknown Verified 01/22/24 07:45 Penicillins AdvReac Intermediate CHILDHOOD, Verified 01/22/24 07:57 Anaphylaxis Plan Diagnosis/Plan: Unchanged I have reviewed the history and physical and performed a pertinent physical examination on my patient. No changes have occurred unless specified. MRI guided-prostate biopsy. Time Spent With Patient Time: Total time managing care of this patient today ____ minutes.
--- NOTE | 2024-01-22 08:56 | PC.NURSE ---
Patient takes PO diabetic meds for pre-diabetes per him. Does not check blood sugar at home. Dr. Fischer made aware. No need for preop blood sugar per him.
[2024-01-22 12:33] VITALS: BP 130/85; PULSE 59; RESP 16; TEMP 36.6; O2SAT 98
[2024-01-22 12:35] VITALS: BP 121/83; PULSE 57; RESP 16; O2SAT 98
[2024-01-22 12:40] VITALS: BP 140/91; PULSE 61; RESP 16; O2SAT 96
[2024-01-22 12:45] VITALS: BP 132/80; PULSE 62; RESP 16; O2SAT 96
--- NOTE | 2024-01-22 12:56 | W.PM.OPN ---
Operative Note Operative Note Date of Service: 01/22/24 Narrative: Preoperative diagnosis: Elevated PSA Postoperative diagnosis: Elevated PSA Procedure: MRI-US fusion image registration performed. Transperineal ultrasound-guided prostate biopsy 16 core including targets Surgeon: Dr. Clem Blank Anesthetic: General Indications for procedure: Valeria is a 68 yr old male with elevated PSA, 08/24/23--4.89, 11/21/23--5.58. MRI prostate fusion identified PIRAD 4 and PIRAD 3 lesions. Procedure: After informed consent was verified, the patient was brought into the procedure area. Patient identity confirmed. Anesthesia performed per protocol. Safety pause time out performed. Perioperative antibiotics confirmed. The patient was placed in lithotomy position. Scrotum taped out of operative area. Iodine prep used. Perineal injection of local anesthetic. Combination 10cc iodine with 50cc gel was mixed and placed in the rectum. Ultrasound probe was placed per rectum. Ultrasound probe stabilized on a prostate stepper with attached grid. [employer] software and hardware platform used for US image acquisition, US 3D model creation and MRI-US fusion image overlay. Ultrasound placement was made with external grid calibration for height and prostate diameter in both the transverse and longitudinal planes. Once grid calibration was confirmed prostate ultrasound data acquisition was performed in the transverse fashion. The US images were registered to create model boundaries. A three dimensional ultrasound model was created using [employer] software. The model was reviewed against acquired US images. The planned needle targeting, based on prior acquisition of MRI imaging, was overlaid on the ultrasound images and targets confirmed through ultrasound review. Adjustments were then made between real time and projected model targeting locations. Based on pre-planning evaluation 16 targets had been identified. These included PIRAD 4 lesions that were identified at E-3.0, F-3.0, F-2.5, e-2.5, E-2.5 and PIRAD 3 lesions identified at d-4.5, c-4.5. The patient was then brought out of anesthesia. The patient tolerated the procedure well and was transferred to the recovery room in stable condition. CPT 58530 Modifier 22 for complexity of procedure execution (Perineal prostate biopsy) CPT 18631 US/MRI target fusion and manipulation in realtime
[2024-01-22 13:00] VITALS: BP 125/64; PULSE 61; RESP 16; TEMP 36.4; O2SAT 97
== END 2024-01-22 13:37 | disposition home or self-care (01) ==
PROVIDERS: PCP Family Medicine; Visit Provider Urology
PROC: (CPT 55700; principal; 2024-01-22 09:00)
DX: C61 Malignant neoplasm of prostate (principal); R97.20 Elevated prostate specific antigen [PSA]; R93.89 Abnormal findings on diagnostic imaging of other specified body structures; I25.10 Atherosclerotic heart disease of native coronary artery without angina pectoris; I77.810 Thoracic aortic ectasia; E78.5 Hyperlipidemia, unspecified; Z88.0 Allergy status to penicillin; Z87.891 Personal history of nicotine dependence; Z98.890 Other specified postprocedural states
CPT/HCPCS: 55706; 88305; 88344; J1100; J1200; J1956; J2250; J2405; J2704; J2795; J3010

== ENCOUNTER → 2024-01-22 07:14 | Outpatient (BNV) | payer MEDICARE, SELFPAY | PROVIDERS: PCP Family Medicine; Visit Provider Urology | DX: R97.20 Elevated prostate specific antigen [PSA] (principal) | CPT/HCPCS: 55706 ==

== ENCOUNTER 2024-02-14 15:14 | Outpatient (AMB) | payer MEDICARE, SELFPAY ==
--- NOTE | 2024-02-14 15:28 | A.OFFVIS_ITS ---
Intake Visit Reasons: Prostate bx results Intake Note: Patient is present for PROSTATE BX RESULTS Urology Medication:PERCOCET, PYRIDIUM, LEVOFLOXACIN Antibiotic Allergy:PENICILLIN, PENICILLAMINE Blood Thinner:ASPIRIN Tea Bag Packer Required: No Allergies penicillamine Allergy (Unknown, Verified 02/14/24 15:29) unknown Penicillins Adverse Reaction (Intermediate, Verified 02/14/24 15:29) CHILDHOOD, Anaphylaxis HPI Comments Details: 02/13/24--Valeria is here post MRI guided prostate biopsy, the patient is here with his and I reviewed biopsy results: 1 biopsy 3+3 = 7, grade group 2. All other positive biopsies were [place] 3+3=6 grade group 1. I have discussed treatment options to include active surveillance, robotic radical prostatectomy and radiation therapy. I will send biopsies for a [employer] gene test. Discussed second opinion with Dr. Underwood at [facility] regarding prostatectomy and radiation oncologist in the immediate area. Review of chart: 11/23/2023--Valeria is followed for elevated PSA. He is status post MRI of the prostate and repeat PSA. Dr. Martinez discussed results with the patient. MRI noted a 0.7 cm PIRAD 4 lesion at the left mid gland peripheral zone and a 0.5 cm PIRAD 4 lesion at the left apex peripheral zone. Repeat PSA 11/21/2023--total PSA 5.58 ng/mL, free PSA 0.8 ng/mL, 16%. MRI guided prostate biopsy discussed. 09/07/2023- Valeria is a 68-year-old male who was initially evaluated for elevated PSA on 08/23/2023. I discussed repeating PSA. I have reviewed repeat PSA results on 08/24/2023 was 4.89 % free 16. I have discussed proceeding with prostate biopsy. The patient had excellent questions regarding imaging modalities and risks and benefits of the prostate biopsy. Plan will be to get an MRI for further evaluation of the prostate. 08/23/2023--Valeria is a 68-year-old male who is here for evaluation due to elevated PSA. He denies irritative voiding symptoms. Past medical history significant for coronary artery disease he is followed by Cardiology. PSA 06/01/2023 is 4.99 ng/mL. I have discussed that elevated PSA may indicate changes in the prostate including benign enlargement, cancer and an inflammatory condition. I have discussed doing a biopsy has risks and that management in early detection of prostate cancer may include active surveillance. Plan is to repeat PSA. If remains elevated will discuss prostate biopsy to be scheduled. [facility] Medical History Pre-diabetes Enlarged thoracic aorta Hyperlipidemia CAD (coronary artery disease) Surgical History Hx of eye surgery History of open reduction and internal fixation (ORIF) procedure Family History Mother No problems noted. Father CVD (cardiovascular disease) Brother Hx of CABG Brother No problems noted. Son No problems noted. Son No problems noted. Daughter No problems noted. Social History Household Members: Spouse Housing: House Alcohol intake: current Alcohol intake frequency: holidays/special occasions only Comment: Sporadic drinker-more socially Patient Tobacco Use Status: Former Tobacco user Tobacco use type: Cigarette Years Smoked: 30 e-Cigarette/Vaping Use: Never Used service: No Current occupational status: retired Current occupational exposures/hazards: No Sexual orientation: Unable to collect Gender identity: Unable to collect Cognitive needs: No Hearing needs: Yes Vision needs: Yes Review of Systems Const All systems reviewed & are unremarkable except as noted in HPI and below Reports no additional complaints Eyes Reports no additional complaints ENT Reports no additional complaints Card Reports no additional complaints Resp Reports no additional complaints GI Reports no additional complaints Reports as per HPI Musc Reports no additional complaints Skin/Breast Reports system reviewed and no additional complaints, except as documented Neuro Reports no additional complaints Psych Reports no additional complaints Endo Reports no additional complaints Mac/Lymph Reports no additional complaints Aller/Immun Reports no additional complaints Results Reviewed Results Reviewed: Collected: 01/22/24 Location: [facility] Received: 01/22/24 Diagnosis Prostate, needle core biopsies: A. F 3.0: Stroma, fibroadipose tissue, and skeletal muscle. B. F 2.5: Prostatic adenocarcinoma, Susie score 6 (3+3), grade group 1, 2.5 mm, 1 of 2 cores, 13% of tissue. C. F 2.0: Benign prostatic tissue. D. e 2.5: Benign prostatic tissue. E. e 2.0: Benign prostatic tissue. F. E 3.5: Benign prostatic tissue. G. E 3.0: Prostatic adenocarcinoma, [place] score 6 (3+3), grade group 1, 0.3 mm, 1 of 2 cores, 3% of tissue. H. E 2.5: Prostatic adenocarcinoma, Susie score 6 (3+3), grade group 1, 4 mm, 29% of core. I. d 4.5: Fibrovascular tissue, skeletal muscle and skin. J. d 2.0: Benign prostatic tissue. K. c 4.5: Prostatic adenocarcinoma, [place] score 7 (3+4), grade group 2, 10% pattern 4, 2.5 mm, 1 of 2 cores, 18% of tissue L. C 3.5: Prostatic adenocarcinoma, Susie score 6 (3+3), grade group 1, 5 mm, 42% of core. M. C 2.0: Fibroadipose tissue only. N. b 2.5: Benign prostatic tissue. O. b 2.5: Stroma, fibroadipose tissue, skeletal muscle and skin. P. B 3.0: Rare atypical glands, suspicious for prostatic adenocarcinoma. Data synopsis - Prostate needle biopsy Patient: Valeria Coffman Age/Sex: 68/M [id number] MR#: [id number] Surgical Pathology [id number] Histologic type: Adenocarcinoma, acinar type Histologic grade: Susie score: 7 (3+4) (c 4.5) 6 (3+3) (F 2.5, E 3.0, E 2.5, C 3.5) % of pattern 4: 1.7 % % of pattern 5: 0 % Grade group: 2 and 1 Tumor quantitation: Number cores positive: 5 Total number of cores: 35 % of tissue involved: 8.7 % Periprostatic fat inv.: Not identified Seminal vesicle inv.: Not identified Perineural inv.: Not identified Lymphovascular invasion: Not identified Clinical History Elevated PSA Assessment & Plan Assessment & Plan (1) Adenocarcinoma of prostate: Code(s): C61 - Malignant neoplasm of prostate Category: Medical Plan Genetic Testins Polaris. Referral for second opinion Dr. Libia Underwood regarding surgery, and Dr. Jared Cárdenas regarding radiation therapy. Orders: Referrals Urology Referral C61 - Malignant neoplasm of prostate Radiation Oncology Referral C61 - Malignant neoplasm of prostate Patient Instructions: The patient had an opportunity to ask questions regarding treatment plan. The patient expressed understanding and agreement with the above treatment plan. The patient is aware they should contact our office by phone for worsening of their current condition or the appearance of new symptoms. Compliance is encouraged with any medications and followup testing that is ordered. It is a privilege to be allowed the opportunity to participate in the urologic care of your patient. If you have any questions or concerns regarding treatment for the above conditions please do not hesitate to contact me. The office telephone contact is [phone]. This note is constructed in part using voice recognition software. While every effort has been made to ensure accuracy administrative office clerk errors may have been included. Yours sincerely, Clem Blank MD Coding Level of Care Code Est Pt Level 4 (50472) Diagnoses Adenocarcinoma of prostate C61
== END 2024-02-14 16:28 | disposition home or self-care (01) ==
PROVIDERS: PCP Family Medicine; Visit Provider Urology
DX: C61 Malignant neoplasm of prostate (principal)
CPT/HCPCS: 99214

== ENCOUNTER → 2024-02-14 15:14 | Outpatient (BNVA) | payer MEDICARE, SELFPAY | PROVIDERS: PCP Family Medicine; Visit Provider Urology | DX: C61 Malignant neoplasm of prostate (principal) | CPT/HCPCS: 99212 ==

== ENCOUNTER 2024-04-16 15:11 | Outpatient (AMB) | payer MEDICARE, SELFPAY ==
--- NOTE | 2024-04-16 12:56 | MHC.OFFVIS ---
Intake Visit Reasons: 7w follow up Intake Note: Patient is present for 7w f/u Urology Medication:none Antibiotic Allergy:penicillins Blood Thinner:aspirin Excellence Specialist Required: No Allergies penicillamine Allergy (Unknown, Verified 04/16/24 15:16) unknown Penicillins Adverse Reaction (Intermediate, Verified 04/16/24 15:16) CHILDHOOD, Anaphylaxis HPI Comments Details: 04/16/24--Valeria is here with his for follow up. Here to discuss Polaris results. [employer]' Prolaris test is a genetic test that measures tumor cell growth to help determine how aggressive a patient's prostate cancer is: The Prolaris test combines a personalized tumor score with prostate-specific antigen and [place] scores to provide an assessment of how aggressively a patient's prostate cancer will progress over the next ten years. His Polaris score is 3.1 which is suggestive that he may be a candidate for active surveillance. Plan MRI and PSA in 6 months.30 minutes spent in review of records pertaining to this visit and including [id number] discussion with the patient and documentation of this visit. Review of chart: 02/13/24--Valeria is here post MRI guided prostate biopsy, the patient is here with his and I reviewed biopsy results: 1 biopsy 3+3 = 7, grade group 2. All other positive biopsies were Susie 3+3=6 grade group 1. I have discussed treatment options to include active surveillance, robotic radical prostatectomy and radiation therapy. I will send biopsies for a Polaris gene test. Discussed second opinion with Dr. Underwood at [facility] regarding prostatectomy and radiation oncologist in the immediate area. 11/23/2023--Valeria is followed for elevated PSA. He is status post MRI of the prostate and repeat PSA. Dr. Martinez discussed results with the patient. MRI noted a 0.7 cm PIRAD 4 lesion at the left mid gland peripheral zone and a 0.5 cm PIRAD 4 lesion at the left apex peripheral zone. Repeat PSA 11/21/2023--total PSA 5.58 ng/mL, free PSA 0.8 ng/mL, 16%. MRI guided prostate biopsy discussed. 09/07/2023- Valeria is a 68-year-old male who was initially evaluated for elevated PSA on 08/23/2023. I discussed repeating PSA. I have reviewed repeat PSA results on 08/24/2023 was 4.89 % free 16. I have discussed proceeding with prostate biopsy. The patient had excellent questions regarding imaging modalities and risks and benefits of the prostate biopsy. Plan will be to get an MRI for further evaluation of the prostate. 08/23/2023--Valerai is a 68-year-old male who is here for evaluation due to elevated PSA. He denies irritative voiding symptoms. Past medical history significant for coronary artery disease he is followed by Cardiology. PSA 06/01/2023 is 4.99 ng/mL. I have discussed that elevated PSA may indicate changes in the prostate including benign enlargement, cancer and an inflammatory condition. I have discussed doing a biopsy has risks and that management in early detection of prostate cancer may include active surveillance. Plan is to repeat PSA. If remains elevated will discuss prostate biopsy to be scheduled. [facility] Medical History Pre-diabetes Enlarged thoracic aorta Hyperlipidemia CAD (coronary artery disease) Surgical History Hx of eye surgery History of open reduction and internal fixation (ORIF) procedure Family History Mother No problems noted. Father CVD (cardiovascular disease) Brother Hx of CABG Brother No problems noted. Son No problems noted. Son No problems noted. Daughter No problems noted. Social History Household Members: Spouse Housing: House Alcohol intake: current Alcohol intake frequency: holidays/special occasions only Comment: Sporadic drinker-more socially Patient Tobacco Use Status: Former Tobacco user Tobacco use type: Cigarette Years Smoked: 30 e-Cigarette/Vaping Use: Never Used service: No Current occupational status: retired Current occupational exposures/hazards: No Sexual orientation: Unable to collect Gender identity: Unable to collect Cognitive needs: No Hearing needs: Yes Vision needs: Yes Review of Systems Const All systems reviewed & are unremarkable except as noted in HPI and below Reports no additional complaints Eyes Reports no additional complaints ENT Reports no additional complaints Card Reports no additional complaints Resp Reports no additional complaints GI Reports no additional complaints Reports as per HPI Musc Reports no additional complaints Skin/Breast Reports system reviewed and no additional complaints, except as documented Neuro Reports no additional complaints Psych Reports no additional complaints Endo Reports no additional complaints Mac/Lymph Reports no additional complaints Aller/Immun Reports no additional complaints Results AMB Urinalysis, Automated UA Leukoctes 0 Skyler/uL Last Edit by CHERYLE Irwin on 04/16/24 15:24 UA Nitrite Negative Last Edit by Cody Borden [facility] on 04/16/24 15:24 UA Urobilinogen 0.2 mg/dL Last Edit by Cody Borden [facility] on 04/16/24 15:24 UA Protein 0 mg/dL Last Edit by Cody Borden [facility] on 04/16/24 15:24 UA pH 6.0 Last Edit by Cody Borden [facility] on 04/16/24 15:24 UA Blood 10 Eduardo/uL Last Edit by Cody Borden [facility] on 04/16/24 15:24 UA Specific [place] 1.030 Last Edit by Cody Borden [facility] on 04/16/24 15:24 UA Ketone Negative Last Edit by Cody Borden [facility] on 04/16/24 15:24 UA Bilirubin 0 mg/dL Last Edit by Cody Borden [facility] on 04/16/24 15:24 UA Glucose 0 mg/dL Last Edit by Cody Borden [facility] on 04/16/24 15:24 Results Reviewed Results Reviewed: Laboratory Last Values Urine pH (Auto) 6.0 04/16/24 15:23 Specific [place] (Auto) 1.030 04/16/24 15:23 Urine Protein (Auto) 0 mg/dL 04/16/24 15:23 Glucose (UA)(Auto) 0 mg/dL 04/16/24 15:23 Urine Ketones (Auto) Negative 04/16/24 15:23 Urine Blood (Auto) 10 Eduardo/uL 04/16/24 15:23 Urine Nitrite (Auto) Negative 04/16/24 15:23 Urine Bilirubin (Auto) 0 mg/dL 04/16/24 15:23 Urine Urobilinogen (Auto) 0.2 mg/dL 04/16/24 15:23 Leukocyte Esterase (Auto) 0 Skyler/uL 04/16/24 15:23 Assessment & Plan Assessment & Plan (1) Adenocarcinoma of prostate: Code(s): C61 - Malignant neoplasm of prostate Category: Medical Plan Active surveillance. MRI and PSA in 6 months Orders: Orders PSA,Total (Free>4and<10) 6 Months C61 - Malignant neoplasm of prostate AMB Urinalysis Automated Today Z13.9 - Encounter for screening, unspecified MR pelvis wo/w con 6 Months C61 - Malignant neoplasm of prostate Patient Instructions: The patient had an opportunity to ask questions regarding treatment plan. The patient expressed understanding and agreement with the above treatment plan. The patient is aware they should contact our office by phone for worsening of their current condition or the appearance of new symptoms. Compliance is encouraged with any medications and followup testing that is ordered. It is a privilege to be allowed the opportunity to participate in the urologic care of your patient. If you have any questions or concerns regarding treatment for the above conditions please do not hesitate to contact me. The office telephone contact is [phone]. This note is constructed in part using voice recognition software. While every effort has been made to ensure accuracy printing machine mechanic errors may have been included. Yours sincerely, Clem Blank MD Coding Level of Care Code Est Pt Level 4 (84078) Diagnoses Adenocarcinoma of prostate C61
== END 2024-04-16 15:52 | disposition home or self-care (01) ==
LOC: HO.HUSH 15:12
PROVIDERS: PCP Family Medicine; Visit Provider Urology
DX: C61 Malignant neoplasm of prostate (principal); Z13.9 Encounter for screening, unspecified
CPT/HCPCS: 99214

== ENCOUNTER → 2024-04-16 15:11 | Outpatient (BNVA) | payer MEDICARE, SELFPAY | PROVIDERS: PCP Family Medicine; Visit Provider Urology | DX: C61 Malignant neoplasm of prostate (principal) | CPT/HCPCS: 81003; 99212 ==

== ENCOUNTER 2024-06-09 09:36 | Outpatient (AMB) | payer MEDICARE, SELFPAY ==
--- NOTE | 2024-06-09 09:45 | MHC.PC.OV ---
Vital Signs 06/09/24 09:53 Height 6 ft Weight 234 lb 4 oz BMI 31.8 BP 114/78 Blood Pressure Location Rt brachial Position Sitting Respiration 16 Pulse 63 Pulse Source Pulse Oximeter Temp 97.4 F Temp Source Oral Pulse Oximetry (%) 97 Oxygen Delivery Method Room Air Intake Visit Reasons: Visit due to med refill Intake Note: follow up visit for DM Allergies penicillamine Allergy (Unknown, Verified 06/09/24 09:52) unknown Penicillins Adverse Reaction (Intermediate, Verified 06/09/24 09:52) CHILDHOOD, Anaphylaxis Tobacco use date assessed: 08/03/23 Dental Screening Dental Screen Date: 02/08/23 HPI Visit due to med refill HPI Details 69 y/o male presents to f/u chronic conditions. Follows up with cardiology for hx of CAD, enlarged thoracic aorta. Blood pressure today 114/78, 63p. Continues to try and get exercise. Reports R side posterolateral rib pain/pelvis pain. Pain had first started with movement. Hx of elevated fasting blood sugars and continues to take metformin 250mg as prescribed. A1c 6.1%. [facility] Medical History Pre-diabetes Enlarged thoracic aorta Hyperlipidemia CAD (coronary artery disease) Surgical History Hx of eye surgery History of open reduction and internal fixation (ORIF) procedure Family History Mother No problems noted. Father CVD (cardiovascular disease) Brother Hx of CABG Brother No problems noted. Son No problems noted. Son No problems noted. Daughter No problems noted. Social History Household Members: Spouse Housing: House Alcohol intake: current Alcohol intake frequency: holidays/special occasions only Comment: Sporadic drinker-more socially Patient Tobacco Use Status: Former Tobacco user Tobacco use type: Cigarette Years Smoked: 30 e-Cigarette/Vaping Use: Never Used service: No Current occupational status: retired Current occupational exposures/hazards: No Sexual orientation: Unable to collect Gender identity: Unable to collect Cognitive needs: No Hearing needs: Yes Vision needs: Yes Questionnaire PHQ-9 Over the last 2 weeks, how often have you been bothered by any of the following problems? 1. Little interest or pleasure in doing things: not at all 2. Feeling down, depressed, or hopeless: not at all 3. Trouble falling or staying asleep, or sleeping too much: not at all 4. Feeling tired or having little energy: not at all 5. Poor appetite or overeating: not at all 6. Feeling bad about yourself - or that you are a failure or have let yourself or your family down: not at all 7. Trouble concentrating on things, such as reading the newspaper or watching television: not at all 8. Moving or speaking so slowly that other people could have noticed. Or the opposite - being so fidgety or restless that you have been moving around a lot more than usual: not at all 9. Thoughts that you would be better off or of hurting yourself in some way: not at all Total score: 0 Source: Developed by Drs. Larry Stockton, Bridget Nielsen, Didier Hernandez and colleagues, with an educational toya from [employer]. Thrive Questionnaire Date Thrive assessed: 06/06/24 I am a: Patient What is your living situation today?: I choose not to answer this question Within the past 12 months, did the food you bought not last and you didn't have the money to get more?: I choose not to answer this question Within the past 12 months, did you worry whether your food would run out before you got money to buy more?: I choose not to answer this question Do you have trouble paying for medicines?: I choose not to answer this question Do you have trouble getting transportation to medical appointments?: I choose not to answer this question Do you have trouble paying your heating and electricity bill?: I choose not to answer this question Do you have trouble taking care of your child, family member or friend?: I choose not to answer this question Do you have trouble with day-to-day activities such as bathing, preparing meals, shopping, managing finances, etc.?: I choose not to answer this question Are you currently unemployed and looking for a job?: I choose not to answer this question Are you interested in more education?: I choose not to answer this question Please select the resources that you would like help with: None Currently or been in a relationship where the following occur: No concerns reported THRIVE Score: 0 AUDIT C Alcohol Use Questionnaire (AUDIT-C) 1. How often do you have a drink containing alcohol?: Monthly or less 2. How many drinks containing alcohol do you have on a typical day when you are drinking?: 1 or 2 3. How often do you have six or more drinks on one occasion?: Never Total Score: 1 LUIS-7 AMB Questionnaire LUIS-7 Date LUIS - 7 assessed: 08/21/22 Feeling nervous, anxious, or on edge: 0 = Not at all Not being able to stop or control worryin = Not at all Worrying too much about different things: 0 = Not at all Trouble relaxin = Not at all Being so restless that it is hard to sit still: 0 = Not at all Becoming easily annoyed or irritable: 0 = Not at all Feeling afraid as if something awful might happen: 0 = Not at all Total LUIS-7 score (0-4 normal; 5-9 mild; 10-14 moderate; 15-21 severe): 0 Source: Developed by Drs. Larry Stockton, Bridget Nielsen, Didier Hernandez and colleagues, with an educational toya from [employer]. Physical exam (Primary Care) Vital Signs: Last Vital Signs Temp 97.4 F 06/09/24 09:53 Pulse 63 06/09/24 09:53 Resp 16 06/09/24 09:53 BP 114/78 06/09/24 09:53 Pulse Ox 97 06/09/24 09:53 Oxygen Delivery Method Room Air 06/09/24 09:53 BMI result Body Mass Index 31.8 Tobacco/Smoking Status: Tobacco use Status Tobacco use date assessed 08/03/23 06/09/24 09:48 Patient Tobacco Use Status Former Tobacco user 06/09/24 09:48 Tobacco use type Cigarette 06/09/24 09:48 e-Cigarette/Vaping Use Never Used 06/09/24 09:48 PHQ-9: PHQ-9 Score PHQ-9: Total score 0 06/09/24 10:02 Thrive Assessment: Date of Thrive Assessment Date Thrive assessed 06/06/24 06/09/24 09:48 Currently or been in a relationship where the following occur: No concerns reported Results AMB Hemoglobin A1c AMB Hemoglobin A1c 6.1 % Last Edit by Antonio Rai CMA on 06/09/24 10:19 Coding Level of Care Code Est Pt Level 4 (12308) Diagnoses Pre-diabetes R73.03 Adenocarcinoma of prostate C61 Hyperlipidemia E78.5 CAD (coronary artery disease) I25.10 Rib pain R07.81 Pelvic pain R10.2 Assessment & Plan Assessment & Plan (1) Pre-diabetes: Code(s): R73.03 - Prediabetes Category: Medical Plan: Patient?with?history?of?coronary?artery?disease?and?elevated?blood?sugars. He?is?taking?metformin?250?mg?daily?as?prescribed?and?A1c?is?6.1% Continue?metformin?and?watch?sugars?and?starches?in?diet Will?continue?to?follow?about?every?6?months (2) Adenocarcinoma of prostate: Code(s): C61 - Malignant neoplasm of prostate Category: Medical Plan: Followed?by?[facility] [place]?urology (3) Hyperlipidemia: Comment: Cardiology recommends LDL target goal closer to 60 Code(s): E78.5 - Hyperlipidemia, unspecified Category: Medical Plan: History?of?coronary?artery?disease?he?is?on?atorvastatin?Zetia Continue?medications (4) CAD (coronary artery disease): Code(s): I25.10 - Atherosclerotic heart disease of [place] coronary artery without angina pectoris Category: Medical Plan: Stable Follow-up?with?Cardiology?as?recommended (5) Rib pain: Code(s): R07.81 - Pleurodynia Category: Medical Plan: Patient?has?posterolateral?pain?between?right?lower?ribs?and?the?top?pelvic?crest This?appears?to?be?muscular?however?given?patient's?history?of?prostate?cancer, will?check?x-rays Offered?physical?therapy?and?he?plans?to?work?on?stretching?home Also?advised?ice/heat?Tylenol?or?ibuprofen He?will?let?me?know?if?not?improving?worsens (6) Pelvic pain: Code(s): R10.2 - Pelvic and perineal pain Category: Medical Plan: As?above Orders: Orders AMB Hemoglobin A1c Today R73.03 - Prediabetes XR ribs RT 2V Today R07.81 - Pleurodynia XR pelvis 1-2V Today R10.2 - Pelvic and perineal pain Medications: Changed From metformin 250 mg (1/2 x 500 mg) PO DAILY 30 days 15 tabs 1RF To metformin 250 mg (1/2 x 500 mg) PO DAILY 90 days 45 tabs 3RF
[2024-06-09 09:53] VITALS: BP 114/78; PULSE 63; RESP 16; TEMP 36.3; O2SAT 97; BMI 31.8
== END 2024-06-09 10:17 | disposition home or self-care (01) ==
PROVIDERS: PCP Family Medicine; Visit Provider Family Medicine
DX: R73.03 Prediabetes (principal); C61 Malignant neoplasm of prostate; E78.5 Hyperlipidemia, unspecified; I25.10 Atherosclerotic heart disease of native coronary artery without angina pectoris; R07.81 Pleurodynia; R10.2 Pelvic and perineal pain

== ENCOUNTER → 2024-06-09 09:36 | Outpatient (BNVA) | payer MEDICARE, SELFPAY | PROVIDERS: PCP Family Medicine; Visit Provider Family Medicine | DX: R73.03 Prediabetes (principal); C61 Malignant neoplasm of prostate; E78.5 Hyperlipidemia, unspecified; I25.10 Atherosclerotic heart disease of native coronary artery without angina pectoris; R07.81 Pleurodynia; R10.2 Pelvic and perineal pain | CPT/HCPCS: 83036; 96127; 99212 ==

== ENCOUNTER 2024-06-10 08:46 | Outpatient (REF) | payer MEDICARE, SELFPAY ==
--- NOTE | ~2024-06-10 | XR_ITS ---
EXAMINATION: XR PELVIS CLINICAL INFORMATION: R10.2 - Pelvic and perineal pain. Right posterolateral pain along iliac crest. COMPARISON: None available. TECHNIQUE: AP view of the pelvis. FINDINGS: Degenerative changes and facet arthritis in the imaged lower lumbar spine. Possible pseudoarticulation between the right L5 transverse process and the right sacral ala. Multiple rounded pelvic calcifications, likely phleboliths. Asymmetric sclerosis with narrowing along the inferior aspect of the right sacroiliac joint. Mild degenerative changes in the left sacroiliac joint. Mild degenerative changes on single AP limited view of the bilateral hips. Possible dysplasia right femoral head. Dedicated views of the hips recommended if there is clinical concern for fracture or other pathology. XR/XR pelvis 1-2V IMPRESSION: 1. Advanced degenerative changes in the right sacroiliac joint with sclerosis with narrowing along the inferior aspect of the joint. Mild degenerative changes in the left sacroiliac joint. 2. Degenerative and facet arthritis changes in the imaged lower lumbar spine. Possible pseudoarticulation between right L5 transverse process and right sacral ala. 3. Mild degenerative changes on single AP limited view of the bilateral hips. Possible dysplasia right femoral head. Dedicated views of the hips recommended if there is clinical concern for fracture or other pathology. This study was presented today to June 10, 2024 for interpretation. Stat results provided at this time as requested by referring provider. Electronically signed by: Isis Sánchez MD 06/10/2024 10:31 AM [facility]
--- NOTE | ~2024-06-10 | XR_ITS ---
EXAMINATION: XR RIBS, RIGHT CLINICAL INFORMATION: R07.81 - Pleurodynia. Right lower posterolateral rib pain, pain for some time. COMPARISON: 07/31/2023 x-ray chest. TECHNIQUE: 6 views of the right lower ribs. FINDINGS: Degenerative changes in the partially imaged thoracic spine. Degenerative changes on limited views of the right shoulder. Limited, incomplete images of the spine demonstrate degenerative changes and facet joint osteoarthritis visualized cervical spine. Scoliosis and degenerative changes of visualized lumbar spine with severe facet joint osteoarthritis at L4-5 and L5-S1. Radiopaque marker placed by technologist to indicate the area of concern as indicated by the patient along the inferior aspect of the right lower ribs/upper abdomen. No displaced lower right rib fracture is appreciated; however, it is difficult to exclude subtle nondisplaced fractures along the anterior lateral aspects of the inferior right ribs due to overlying soft tissue structures. XR/XR ribs RT 2V IMPRESSION: No displaced lower right rib fracture is appreciated; however, it is difficult to exclude subtle nondisplaced fractures along the anterior lateral aspects of the inferior right ribs due to overlying soft tissue structures. This study was presented today June 10, 2024 for interpretation. Stat results provided at this time as requested by referring provider. Electronically signed by: Isis Sánchez MD 06/10/2024 10:32 AM [facility]
== END 2024-06-10 08:47 | disposition home or self-care (01) ==
LOC: HO.XRAY 08:46
PROVIDERS: PCP Family Medicine; Visit Provider Family Medicine
DX: R10.2 Pelvic and perineal pain (principal); R07.81 Pleurodynia
CPT/HCPCS: 71100; 72170

== ENCOUNTER → 2024-08-25 10:42 | Outpatient (REF) | payer MEDICARE, SELFPAY ==
--- NOTE | 2024-08-25 10:44 | CA_ITS ---
Transthoracic Echocardiogram Patient (Last, First, Middle): Valeria Coffman C Gender: Male Date of : 1955 Age: 69 Procedure Date: 08/25/2024 Procedure Type: Transthoracic Echocardiogram Location: OP Height: 238.76 cm Weight: 101.6 kg BSA: 2.71 m2 Heart Rate: bpm BP: 116 / 78 mmHg Signals Intelligence Superintendent: JANAE Referring MD: Demond Montelongo MD Symptoms: I77.89 - Other specified disorders of arteries and arterioles Study Quality: Adequate ECG Rhythm: Sinus Conclusions: - The left ventricular systolic function is normal. The calculated ejection fraction is 62% by biplane method. - The mid inferoseptal and basal anteroseptal segments are hypokinetic. - There is mild to moderate tricuspid valve regurgitation. - There is mild dilatation of the sinuses of Valsalva measuring 4.50 cm and mild dilatation of the ascending aorta measuring 4.20 cm. Findings Left Ventricle Normal left ventricular cavity size. There is normal left ventricular wall thickness. The left ventricular systolic function is normal. The calculated ejection fraction is 62% by biplane method. There is no evidence of regional wall motion abnormalities. Diastolic function is normal for age. Wall Motion Rest Echo Findings The mid inferoseptal and basal anteroseptal segments are hypokinetic. Right Ventricle Moderately increased right ventricular cavity size. There is normal right ventricular systolic function. Aortic Valve There is a normal trileaflet aortic valve. There is no aortic valve stenosis. There is no aortic valve regurgitation. Mitral Valve The mitral valve appears normal. There is no mitral valve regurgitation. There is no mitral valve stenosis. Pulmonic Valve The pulmonic valve is likely normal. Tricuspid Valve There is mild to moderate tricuspid valve regurgitation. There is no evidence of pulmonary hypertension. Great Vessels There is mild dilatation of the sinuses of Valsalva measuring 4.50 cm and mild dilatation of the ascending aorta measuring 4.20 cm. Venous The inferior vena cava is normal in size and collapses greater than 50% with inspiration. Pericardium/Pleural There is no evidence of pericardial effusion. Prior Study Comparison Changes noted compared to prior study dated: 08/17/2023. See comment on wall motion. Increase in right ventricular size. Measurements 2D Linear Measurements IVSd: 0.88 0.6-0.9/0.6-1.0 cm LVIDd: 4.38 3.9-5.3/4.2-5.9 cm LVIDd Index: 1.78 2.4-3.2/2.2-3.1 cm/m2 LVIDs: 3.02 2.0-3.6 cm LVPWd: 0.84 0.7-1.1 cm LA Diam: 3.50 2.7-3.8/3.0-4.0 cm LAIDs Index: 1.42 1.5-2.3 cm/m2 LV Mass: 148.44 67-162/88-224 g LV Mass Index: 60.34 43-95/49-115 g/m2 LVOT Diam: 2.40 3.0+(-)1.3 cm 2D Systolic Function EF 4C: 59.60 >55% EF 2C: 59.00 >55% EF BiP: 61.60 >55% Mitral Valve MV Pk E: 0.72 MV PK A: 0.67 MV Decel Time: 182.00 E/A: 1.10 E'Lateral: 10.00 E'Medial: 5.98 E/E' Med: 12.10 E/E' Lat: 7.20 PHT: 53.00 MVA PHT: 4.15 Decel Waldo: 3.98 Aortic Valve AoV Pk Ronald: 1.05 AoV Mn Ronald: 0.74 AoV VTI: 0.25 AoV Pk Grad: 4.00 Aov Mn Grad: 2.00 RADHA Cont.VTI: 3.64 LVOT LVOT Pk Ronald: 0.93 LVOT Mn Ronald: 0.62 LVOT VTI: 0.20 LVOT Pk Grad: 3.00 LVOT Mn Grad: 2.00 LVOT Diam: 2.40 LVOT Area: 4.52 Diastolic Function MV Pk E: 0.72 MV Pk A: 0.67 E/A: 1.10 E'Medial: 5.98 E/E' Med: 12.10 E' Laterial: 10.00 E/E' Lat: 7.20 Right Ventricle TAPSE (mm): 20.90 TVS' Ronald: 10.10 Tricuspid Valve TR Pk Ronald: 2.66 TR Pk Grad: 28.00 RA Press: 3.00 RVSP: 31.00 Great Vessels Aorta Sinus of Valsalva: 4.50 2.0-3.[address] [place]: 3.67 1.7-3.4 cm Ao Asc: 4.20 2.1-3.4 cm Ao Arch: 3.10 Updated in Other Vendor System with Status of Final Carlos Verde MD electronically signed on 08/25/2024 12:32:03 PM with status of Final
--- OUTSIDE RECORDS SUMMARY | 2024-08-25 12:05 | XMS_ITS | Clinical Summary ---
Author Organization [facility] Address [address] [place] [address] Phone Care Team Providers Care Unit Assistant Name Role Phone Witherbee-Cristin Witt MD Primary Care Provid er Encounters Date Type Department Care Team Description 08/21/2024 Telephone Lung Screening Program - [place] [address] [facility] [address] [place] [address] Nisa Nielsen MA from Last 3 Months Medical History Medical History Date Comments High cholesterol 05/04/2015 DX:High cholest magan History of radiation exposure 07/15/2015 DX :History of radiation exposure Ascending aorta enlargement (CMS/HCC) 08/22/2018 DX:Ascending aorta enlargement (HCC); COMMENT: 3.8cm Will get yearly ldct Family History Medical History Relation Name Comments CABG Brother Brain Aneurysm Father Heart attack Maternal Grandfather Hypertension Mother Relation Name Status Comments Brother Father Maternal Grandfather Mother Social History Tobacco Use Types Packs/Day Years Used Date Smoking Tobacco: Former Cigarettes 1 33.2 1 - 07/15/2006 Smokeless Tobacco: Never Alcohol Use Standard Drinks/Week Comments Yes 0 (1 standard drink = 0.6 oz pur e alcohol) Sex and Gender Information Value Date Recorded Sex Assigned at Not on file Legal Sex Male 11:31 PM EST Gender Identity Not on file Sexual Orientation Not on file Obstetrics History Plan of Treatment Upcoming Encounters Date Type Department Care Team ([facility] st Contact Info) Description 09/12/2024 8:00 AM EDT Appointment [facility] CT Scan [address] [place] [phone] Health Maintenance Due Date Last Done Comments Pneumococcal Vaccine: 50+ Years (1 of 1 - PCV) 2007 Zoster Vaccines (1 of 2) 2007 Abdominal Aortic Aneurysm (AAA) Screen 05/21/2022 Cholesterol Screening (Lipid Panel) 05/21/2022 Colorectal Cancer Screening: Colonoscopy 05/21/2022 Depression Screening 05/21/2022 Falls Risk Assessment 05/21/2022 Hepatitis C Screening 05/21/2022 Medicare Annual Wellness Visit 05/21/2022 Social Influencers of Health Screening 05/21/2022 COVID-19 Vaccine (1 - 2023-2 5 season) 2024 Influenza Vaccine (#1) 2024 , 04/17/2016 DTaP,Tdap,and Td Vaccines (3 - Td or Tdap) 12/07/2027 12/06/2017, 05/04/2015 RSV Immunization Patients 60 + Years Old (1 - 1-dose 75+ series) 01/30/2032 HIB Vaccines Aged Out No longer eligi ble based on patient's age to complete this topic HPV Vaccines Aged Out No longer eligi ble based on patient's age to complete this topic Hepatitis A Vaccines Aged Out No long er eligible based on patient's age to complete this topic Hepatitis B Vaccines Aged Out No long er eligible based on patient's age to complete this topic IPV Vaccines Aged Out No longer eligi ble based on patient's age to complete this topic MMR Vaccines Aged Out No longer eligi ble based on patient's age to complete this topic Meningococcal ACWY Vaccine Aged Out N o longer eligible based on patient's age to complete this topic Meningococcal B Vacine Aged Out No lo nger eligible based on patient's age to complete this topic RSV Immunization Patients Under 20 months Aged Out No longer eligible b ased on patient's age to complete this topic Varicella Vaccines Aged Out No longer eligible based on patient's age to complete this topic Insurance MEDICARE [facility] Care Teams Unit Assistant Relationship Specialty Start Date End Date Judi-Cristin Witt MD PCP - General Internal Medicine 04/15/15
--- OUTSIDE RECORDS SUMMARY | 2024-08-25 12:05 | XMS_ITS | Encounter Summary ---
Author Organization [facility] Address [address] [place] [address] Care Team Providers Care Head Sugar Reprocess Operator Name Role Phone Judi-Cristin Witt MD Primary Care Provid er Encounter Details Date Type Department Care Team ([facility] st Contact Info) Description 08/21/2024 Telephone Lung Screening Program - [address] [place] [phone] Nisa Nielsen MA Social History Tobacco Use Types Packs/Day Years [...] on file Sexual Orientation Not on file documented as of this encounter Progress Notes * Nisa Nielsen MA - 08/21/2024 3:10 PM EST Valeria Coffman was contacted by the Lung Cancer Screening Program today to confirm the appointment of their Lung Cancer Screening. The patient is currently scheduled to have their screening on Thursday September 12, 2024, at 8:00 AM at [facility]. No answer For all screenings scheduled during the week, the patient will check in at Patient Registration on the first floor of the main hospital. For screenings that take place on the weekend or after 5pm, check-in directly in Radiology. The patient was given the Lung Cancer Screening Program phone number, , to contact if they have any additional questions, concerns or need to reschedule. Patients are encouraged to call our office and reschedule if they are exhibiting any cold-like symptoms, have recently been treated for Pneumonia or Influenza (the flu) or have had another CT of their Chest since their last screening. documented in this encounter Plan of Treatment Upcoming Encounters Date Type Department Care Team (Late st Contact Info) Description 09/12/2024 8:00 AM EDT Appointment [facility] CT Scan [address] [place] [address] documented as of this encounter Visit Diagnoses Not on filedocumented in this encounter Care Teams Head Sugar Reprocess Operator Relationship Specialty Start Date End Date [place]-Cristin Witt MD PCP - General Internal Medicine 04/15/15 documented as of this encounter
== END ==
LOC: HO.CARD 10:42
PROVIDERS: PCP Family Medicine; Visit Provider Internal Medicine Cardiovascular Disease
DX: I77.89 Other specified disorders of arteries and arterioles (principal)
CPT/HCPCS: 93306

== ENCOUNTER → 2024-08-25 10:44 | Outpatient (BNV) | payer MEDICARE, SELFPAY | PROVIDERS: PCP Family Medicine; Visit Provider Internal Medicine | DX: I77.810 Thoracic aortic ectasia (principal) | CPT/HCPCS: 93306 ==

== ENCOUNTER 2024-08-28 09:56 | Outpatient (AMB) | payer MEDICARE, SELFPAY ==
[2024-08-28 10:03] VITALS: BP 120/80; PULSE 61; BMI 30.8
--- NOTE | 2024-08-28 10:03 | A.OFFVIS_ITS ---
Vital Signs 08/28/24 10:03 Height 6 ft Weight 227 lb 1.218 oz BMI 30.8 BP 120/80 Blood Pressure Location Lt brachial Position Sitting Pulse 61 Intake Visit Reasons: 1 yr f/up Intake Note: 1 year follow-up with ekg after echo c/o some palpitations maybe once a week Allergies penicillamine Allergy (Unknown, Verified 06/09/24 09:52) unknown Penicillins Adverse Reaction (Intermediate, Verified 06/09/24 09:52) CHILDHOOD, Anaphylaxis Medication List - Last Reconciled 08/28/24 by Demond Montelongo MD aspirin (Adult Low Dose Aspirin) 81 mg PO DAILY atorvastatin 80 mg PO DAILY 90 days ezetimibe 10 mg PO DAILY metformin 250 mg (1/2 x 500 mg) PO DAILY 90 days HPI Comments Details: Valeria comes for follow-up. 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 He was last few months he has slowed down and feels fatigued with exercise. He is not able to walk as long distance as before and says feels tired. No exertional chest pain or shortness of breath. Denies any prolonged palpitation irregular heartbeat. Occasional fluttering in his chest. Denies any shortness of breath, orthopnea, PND. Last LDL is very well optimized at 45 mg/dL. [facility] Medical History Pre-diabetes Enlarged thoracic aorta Hyperlipidemia CAD (coronary artery disease) Surgical History Hx of eye surgery History of open reduction and internal fixation (ORIF) procedure Family History Mother No problems noted. Father CVD (cardiovascular disease) Brother Hx of CABG Brother No problems noted. Son No problems noted. Son No problems noted. Daughter No problems noted. Social History Household Members: Spouse Housing: House Alcohol intake: current Alcohol intake frequency: holidays/special occasions only Comment: Sporadic drinker-more socially Patient Tobacco Use Status: Former Tobacco user Tobacco use type: Cigarette Years Smoked: 30 e-Cigarette/Vaping Use: Never Used service: No Current occupational status: retired Current occupational exposures/hazards: No Sexual orientation: Unable to collect Gender identity: Unable to collect Cognitive needs: No Hearing needs: Yes Vision needs: Yes Review of Systems Const Denies chills, Denies fatigue, Denies fever(s), Denies frequent falls, Denies weakness, Denies weight gain and Denies weight loss ENT Denies dizziness Card Denies chest pain, Denies leg edema, Denies lightheadedness, Reports palpitations, Denies dyspnea, Denies dyspnea on exertion, Denies orthopnea and Denies other (loss of consciousness) Resp Denies cough, Denies dyspnea and Denies dyspnea on exertion GI Denies hematochezia and Denies change in stool character Musc Denies abnormal gait, Denies muscle weakness, Denies numbness, Denies radiating pain into limb and Denies tingling Neuro Denies abnormal gait, Denies dizziness, Denies frequent falls, Denies numbness, Denies tingling and Denies weakness Endo Denies fatigue and Reports palpitations Physical Exam Vital Signs: Last Vital Signs Pulse 61 08/28/24 10:03 BP 120/80 08/28/24 10:03 BMI result Body Mass Index 30.8 Const General: cooperative, comfortable, no acute distress, alert and awake Nutritional Appearance: average body habitus Orientation/consciousness: patient oriented x3 Limitations: no limitations Neck Neck: Yes trachea midline and Yes no JVD Resp Effort & Inspection: normal respiratory effort Auscultation: clear to auscultation bilaterally Cardio Jugular venous distension: no JVD Palpation: normal PMI Rate: regular rate Rhythm: regular rhythm Heart sounds: S1 normal heart sound present, S2 normal heart sound present, no click, no gallops and no murmurs GI Auscultation: normal bowel sounds Skin General skin exam: no rashes or lesions noted Neuro General: patient oriented x3 and no focal motor deficits Extrem General: Yes no clubbing, cyanosis or edema Office Procedures EKG Details: EKG shows normal sinus rhythm with normal EKG 14080-[id number], Complete Assessment & Plan Assessment & Plan (1) CAD (coronary artery disease): Code(s): I25.10 - Atherosclerotic heart disease of [place] coronary artery without angina pectoris Category: Medical Plan: Coronary artery disease severe calcification all 3 coronary vessel distribution with normal stress echocardiogram more than a year ago but recently having exertional fatigue which is concerning. Echocardiogram also shows possible wall motion abnormality although his LV ejection fraction still preserved. I would suggest a coronary CTA to further evaluate for progressive significant coronary artery disease that could be causing his symptoms and possible wall motion abnormality. Further treatment based on the findings. Need and benefits of cor onary CTA were discussed. He understands agrees. Otherwise he is well optimized with LDL of 45. Continue low-dose aspirin therapy. Continue treatment of prediabetes goal hemoglobin A1c less than 7%. (2) Enlarged thoracic aorta: Comment: 4 cm by echocardiogram June 2021 Code(s): I77.89 - Other specified disorders of arteries and arterioles Category: Medical Plan: Mildly dilated ascending aorta at 4.2 cm. No change. Most likely atherosclerotic. Continue aggressive vascular risk factor modification above. Advised to avoid sudden strenuous isometric exercise. Continue aggressive blood pressure control which appears to be well optimized. Will follow up in the clinic in 1 year's time, sooner p.r.n.. Thank you for allowing me to partake in his care Orders: Orders Basic Metabolic Panel Today I25.10 - Atherosclerotic heart disease of [place] coronary artery without angina pectoris CT Cardiac Coronary Angio 1 Week I25.10 - Atherosclerotic heart disease of [place] coronary artery without angina pectoris Coding Level of Care Code Est Pt Level 4 (46298) Complex EM visit Add On G2211 Diagnoses CAD (coronary artery disease) I25.10 Enlarged thoracic aorta I77.89 CPT Codes EKG - CPT: 21202-[id number], Complete ([id number])
--- OUTSIDE RECORDS SUMMARY | 2024-08-28 12:19 | XMS_ITS | Clinical Summary ---
Author Organization [facility] Address [address] [place] [address] Phone Care Team Providers Care Tool Die Maker Name Role Phone Coh[place]-Cristin Witt MD Primary Care Provid er Encounters Date Type Department Care Team Description 08/21/2024 Telephone Lung Screening Program - [place] [address] [facility] [address] [place] [address] Nisa Nielsen MA from Last [...] Upcoming Encounters Date Type Department Care Team ([facility] st Contact Info) Description 09/12/2024 8:[address] [facility] Scan [address] [place] [phone] Health Maintenance Due Date Last Done Comments [...] age to complete this topic Insurance MEDICARE [facility] Care Teams Tool Die Maker Relationship Specialty Start Date End Date Judi-Cristin Witt MD PCP - General Internal Medicine 04/15/15
--- OUTSIDE RECORDS SUMMARY | 2024-08-28 12:19 | XMS_ITS | Encounter Summary ---
Author Organization [facility] Address [address] [place] [address] Care Team Providers Care Marketing Technology Coordinator Name Role Phone Judi-Cristin Witt MD Primary Care Provid er Encounter Details Date Type Department Care Team ([facility] st Contact Info) Description 08/21/2024 Telephone Lung Screening Program - [address] [place] [phone] Nisa Nielsen MA Social History Tobacco [...] September 12, 2024, at 8:00 AM at [facility]. No answer For all screenings scheduled during [...] Info) Description 09/12/2024 8:00 AM EDT Appointment [facility] CT Scan [address] [place] [address] documented as of this encounter Visit Diagnoses Not on filedocumented in this encounter Care Teams Marketing Technology Coordinator Relationship Specialty Start Date End Date [place]-Cristin Witt MD PCP - General Internal Medicine 04/15/15 documented as of this encounter
== END 2024-08-28 10:37 | disposition home or self-care (01) ==
PROVIDERS: PCP Family Medicine; Visit Provider Internal Medicine Cardiovascular Disease
DX: I25.10 Atherosclerotic heart disease of native coronary artery without angina pectoris (principal); I77.89 Other specified disorders of arteries and arterioles
CPT/HCPCS: 93010; 99214; G2211

== ENCOUNTER → 2024-08-28 09:56 | Outpatient (BNVA) | payer MEDICARE, SELFPAY | PROVIDERS: PCP Family Medicine; Visit Provider Internal Medicine Cardiovascular Disease | DX: I25.10 Atherosclerotic heart disease of native coronary artery without angina pectoris (principal); I77.89 Other specified disorders of arteries and arterioles | CPT/HCPCS: 93005; 99212 ==

== ENCOUNTER 2024-10-21 07:29 | Outpatient (REF) | payer MEDICARE, SELFPAY ==
--- NOTE | ~2024-10-21 | MR_ITS ---
EXAMINATION: MR PELVIS WITHOUT THEN WITH IV CONTRAST HISTORY: C61 - Malignant neoplasm of prostate TECHNIQUE: 1.5T body coil survey of the pelvis was performed. Phase array coil imaging of the prostate was performed in multiplanar high resolution axial, coronal, sagittal fast spin echo T2 and axial T1 weighted imaging sequences. Axial diffusion imaging at intermediate and high field performed with ADC mapping. Next, mL Gadavist was given by intravenous infusion, and dynamic axial imaging performed. COMPARISON: There are no prior studies for comparison. CLINICAL DATA: Most recent PSA: 5.94 ng/mL on 10/21/2024 PSA Density: 0.13 ng/mL squared Prostate Biopsy: Positive biopsy on 01/22/2024 with a Susie score 3+7 = 7. FINDINGS: Prostate size: 4.3 x 5.1 x 4.1 cm. Calculated prostate volume is 46.8 mL. Hemorrhage: There are wedge-shaped foci of increased T2 signal intensity in the peripheral zone compatible with hemorrhage. Transitional Zone: There is moderate heterogeneous nodular hypertrophy of the transitional zone. Peripheral Zone: There are areas of interest in the peripheral zone as described below: Lesion #1, in the left lateral peripheral zone at the apex (series 7, images 25-26) measuring 8 mm in size: DWI PI-RADS v2.1 score: 4 T2 PI-RADS v2.1 score: 4 DCE PI-RADS v2.1 score: + Overall PI-RADS v2.1 score: 4 Capsular contact: no Extracapsular extension: None Seminal vesicle invasion: None Neurovascular bundle involvement: None Lesion #2, a wedge shaped focus in the left lateral peripheral zone at the base (series 7, images 18-19) measuring 8 mm in size and corresponding to an area of increased T1 signal intensity: DWI PI-RADS v2.1 score: 3 T2 PI-RADS v2.1 score: 3 DCE PI-RADS v2.1 score: - Overall PI-RADS v2.1 score: 3 Capsular contact: yes Extracapsular extension: None Seminal vesicle invasion: None Neurovascular bundle involvement: None Seminal Vesicles/Ejaculatory Ducts: Symmetric and normal in signal and caliber. Pelvic Lymph Nodes: No obturator or internal iliac lymph nodes meeting size criteria for adenopathy. Marrow Signal: Normal marrow signal and enhancement without focal lesion identified. MR/MR pelvis wo/w con IMPRESSION: Focus of abnormal signal intensity in the left lateral peripheral zone at the apex, suspicious for clinically significant prostate carcinoma. A 2nd focus at the left base is equivocal due to the wedge shape and increased T1 signal intensity, suggestive of hemorrhage. PI-RADS 4: High (clinically significant cancer is likely to be present) PI-RADS Assessment Categories PI-RADS 1: Very low (clinically significant cancer is highly unlikely to be present) PI-RADS 2: Low (clinically significant cancer is unlikely to be present) PI-RADS 3: Intermediate (the presence of clinically significant cancer is equivocal) PI-RADS 4: High (clinically significant cancer is likely to be present) PI-RADS 5: Very high (clinically significant cancer is highly likely to be present) [employer]. MR Prostate Imaging Reporting and Data System version 2.1. [email or web address] Electronically signed by: Larry Graham MD 10/21/2024 10:36 AM EDT
--- OUTSIDE RECORDS SUMMARY | 2024-10-21 07:32 | XMS_ITS | Clinical Summary ---
Author Organization [facility] Address [address] [place] [address] Phone Care Team Providers Care Chair Finisher Name Role Phone Moises Denny MD Primary Care Provider Encounters Date Type Department Care Team Description 09/12/2024 7:36 AM EDT - 09/12/2024 11:59 PM EDT Hospital Encounter [facility] CT Scan [address] [place] [phone] Encounter for screening for malignant neoplasm of respiratory organs; Personal history of nicotine dependence Discharge Disposition: Home or Self Care 08/21/2024 Telephone Lung Screening Program - [place] [address] [facility] [address] [place] [phone] Nisa Nielsen MA from Last 3 Months Medical History Medical History Date Comments High cholesterol 05/04/2015 DX:High cholest magan History of radiation exposure 07/15/2015 DX :History of radiation exposure Ascending aorta enlargement (CMS/HCC V24) 08/22/2018 DX:Ascending aorta enlargeme nt (HCC); COMMENT: 3.8cm Will get yearly ldct [...] Information Value Date Recorded Sex Assigned at Male 09/11/2024 1:08 PM EDT Legal Sex Male 11:31 PM EST Gender Identity Male 09/11/2024 1:08 PM EDT Sexual Orientation Not on file Obstetrics History Plan of Treatment Health Maintenance Due Date Last Done Comments Pneumococcal Vaccine: 50+ Years (1 of 1 - PCV) 2007 Zoster Vaccines (1 of 2) 2007 Abdominal Aortic Aneurysm (AAA) Screen 05/21/2022 Cholesterol Screening (Lipid Panel) 05/21/2022 Depression Screening 05/21/2022 Falls Risk Assessment 05/21/2022 Hepatitis C Screening 05/21/2022 Medicare Annual Wellness Visit 05/21/2022 Social Influencers of Health Screening 05/21/2022 COVID-19 Vaccine ( - 2023-2 5 season) 2024 Influenza Vaccine (Season Ended) 2025 05/07/2019, 04/17/2016 DTaP,Tdap,and Td Vaccines (3 - Td or Tdap) 12/07/2027 12/06/2017, 05/04/2015 RSV Immunization Adult Patients (1 - 1-dose 75+ series) 01/30/2032 Colorectal Cancer Screening: Colonoscopy 10/09/2034 10/09/2024 HIB Vaccines Aged Out No longer eligi [...] age to complete this topic Meningococcal B Vaccine Aged Out No l onger eligible based on patient's age to complete this topic RSV Immunization Patients Under 20 months Aged Out No longer eligible b ased on patient's age to complete this topic Varicella Vaccines Aged Out No longer eligible based on patient's age to complete this topic Procedures Procedure Name Priority Date/Time Associated Diagnosis Comments EXTERNAL COLONOSCOPY REPORT Routine 10/09/2024 2:[address] LUNG SCREENING Routine 09/12/2024 7:4 7 AM EDT Encounter for screening for malignant neoplasm of respiratory organs Personal history of nicotine dependence from Last 3 Months Results * External Colonoscopy Report (10/09/2024 2:00 PM EDT) Anatomical Region Laterality Modality Endoscopy us Historical Provider GI~PROCEDURE ORDERABLES F inal Result * CT Lung Screening (09/12/2024 7:47 AM EDT) Anatomical Region Laterality Modality Chest Computed Tomogra phy 09/17/2024 10:4 1 AM EDT Impressions 09/17/2024 10:49 AM EDT Impression: No suspicious developing pulmonary nodule. No significant change. Lung-RADS Category: ??Lung-RADS 1: No nodules or definitely benign nodules. Continue annual screening with Low Dose Chest CT in 12 months. [employer] [place] ([id number]) -------- FINAL REPORT -------- Dictated By: Rosamaria Mesa Dictated Date: 09/17/2024 10:41 ET Assigned Physician: Rosamaria Mesa Reviewed and Electronically Signed By: Rosamaria Mesa Signed Date: 09/17/2024 10:49 ET Workstation ID: [id number] Transcribed By: Self Edit Transcribed Date: 09/17/2024 10:41 ET Narrative 09/17/2024 10:49 AM EDT History: ??69 year-old 35 pack-year former smoker, asymptomatic, for lung cancer screening. Quit smoking 15 years ago. Comparison: 09/12/23 Technique: Helical volumetric imaging of the thorax was performed, using low- dose technique, without IV contrast. DLP: 172.50 mGy/cm ??CTDIvol: 4.83 mGy [facility] VCT Iterative reconstruction technique Findings: Lungs and Airways: The trachea and central bronchial tree are patent. Mild centrilobular emphysema is noted. There are rare heterogeneous and calcified nodules, consistent with old granulomatous disease. No suspicious developing pulmonary nodule is seen. Pleura: No pleural or pericardial effusions are seen. Base of neck, mediastinum and heart: The heart remains normal in size. Severe, three-vessel coronary artery calcification is again noted. The ascending thoracic aortic diameter is 4 cm, without significant change. No developing thoracic lymphadenopathy is seen. Soft tissues: The overlying soft tissues are unremarkable. Abdomen: This study was performed without contrast and with lower than standard dose. These factors reduce the sensitivity for detection of small lesions in the upper abdomen. 2 subcentimeter hypoattenuating lesions in the dome of the liver are unchanged, possibly cysts. Procedure Note Rosamaria Mesa MD - 09/17/2024 History: 69 year-old 35 pack-year former smoker, asymptomatic, for lungcancer screening. Quit smoking 15 years ago. Comparison: 09/12/23 Technique: Helical volumetric imaging of the thorax was performed, usinglow-dose technique, without IV contrast. DLP: 172.50 mGy/cm CTDIvol: 4.83 mGy [employer] VCT Iterative reconstruction technique Findings: Lungs and Airways: The trachea and central bronchial tree are patent. Mildcentrilobular emphysema is noted. There are rare heterogeneous and calcified nodules, consistent with oldgranulomatous disease. No suspicious developing pulmonary nodule isseen. Pleura: No pleural or pericardial effusions are seen. Base of neck, mediastinum and heart: The heart remains normal in size.Severe, three-vessel coronary artery calcification is again noted. Theascending thoracic aortic diameter is 4 cm, without significant change. Nodeveloping thoracic lymphadenopathy is seen. Soft tissues: The overlying soft tissues are unremarkable. Abdomen: This study was performed without contrast and with lower thanstandard dose. These factors reduce the sensitivity for detection of smalllesions in the upper abdomen. 2 subcentimeter hypoattenuating lesions inthe dome of the liver are unchanged, possibly cysts. IMPRESSION: Impression: No suspicious developing pulmonary nodule. No significant change. Lung-RADS Category: Lung-RADS 1: No nodules or definitely benign nodules.Continue annual screening with Low Dose Chest CT in 12 months. [employer] [place] ([id number]) -------- FINAL REPORT -------- Dictated By: Rosamaria Mesa Dictated Date: 09/17/2024 10:41 ET Assigned Physician: Rosamaria Mesa Reviewed and Electronically Signed By: Rosamaria Mesa Signed Date: 09/17/2024 10:49 ET Workstation ID: [id number] Transcribed By: Self Edit Transcribed Date: 09/17/2024 10:41 ET Kaden Ross MD IMG CT PROCEDURES Final Result from Last 3 Months Insurance MEDICARE [facility] Care Teams Chair Finisher Relationship Specialty Start Date End Date Moises Denny MD [address] [place] [address] Dr Silvana MA PCP - General Family Medicine 09/11/24
[2024-10-21 09:07] LABS: Anion Gap 10 (12-20); Blood Urea Nitrogen 19 mg/dL (9-16); Calcium 9.6 mg/dL (8.4-10.2); Carbon Dioxide 28 mmol/L (22-29); Chloride 106 mmol/L (96-108); Estimated Glomerular Filt Rate > 60; Glucose Random 98 mg/dL (60-115); Sodium 139 mmol/L (135-145)
[2024-10-21 09:29] LABS: PSA,Total (Free>4and<10) 5.94 ng/mL (0.00-4.00)
[2024-10-21] MEDS: gadobutroL 10 ML VIAL IVPUSH (09:37)
[2024-10-23 10:28] LABS: Free Prostate Spec Ag 0.7 ng/mL; Percent Free Prostate Spec Ag 13 % (calc) (>25); Prostate Specific Ag Total 5.3 ng/mL (< OR = 4.0)
== END 2024-10-21 07:30 | disposition home or self-care (01) ==
LOC: HO.MRI 07:29
PROVIDERS: Internal Medicine Cardiovascular Disease; PCP Family Medicine; Visit Provider Urology
DX: Z12.5 Encounter for screening for malignant neoplasm of prostate (principal); C61 Malignant neoplasm of prostate; I25.10 Atherosclerotic heart disease of native coronary artery without angina pectoris
CPT/HCPCS: 36415; 72197; 80048; 84153; 84154; A9585

== ENCOUNTER → 2024-10-21 08:38 | Outpatient (BNV) | payer MEDICARE, SELFPAY | PROVIDERS: PCP Family Medicine; Visit Provider Radiology Diagnostic Radiology | DX: C61 Malignant neoplasm of prostate (principal) | CPT/HCPCS: 72197 ==

== ENCOUNTER 2024-11-12 08:38 | Outpatient (AMB) | payer MEDICARE, SELFPAY ==
--- NOTE | 2024-11-12 08:42 | MHC.PC.OV ---
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 Had last seen Cardiology 08/28/24. Was having exertional fatigue - they had suggested coronary CTA to further evaluate for progressive significant CAD and possible wall motion abnormality. Had mildly dilated ascending aorta 4.2 cm. A1c in May 6.1%. A1c today 5.8%. Has complaints of mass of r side of neck. [facility] Medical History Pre-diabetes Enlarged thoracic aorta Hyperlipidemia CAD (coronary artery disease) Surgical History Hx of eye surgery History of open reduction and internal fixation (ORIF) procedure Family History Mother No problems noted. Father CVD (cardiovascular disease) Brother Hx of CABG Brother No problems noted. Son No problems noted. Son No problems noted. Daughter No problems noted. Social History Household Members: Spouse Housing: House Alcohol intake: current Alcohol intake frequency: holidays/special occasions only Comment: Sporadic drinker-more socially Patient Tobacco Use Status: Former Tobacco user Tobacco use type: Cigarette Years Smoked: 30 e-Cigarette/Vaping Use: Never Used service: No Current occupational status: retired Current occupational exposures/hazards: No Sexual orientation: Unable to collect Gender identity: Unable to collect Cognitive needs: No Hearing needs: Yes Vision needs: Yes Questionnaire PHQ-9 Over the last 2 weeks, how often have you been bothered by any of the following problems? 1. Little interest or pleasure in doing things: not at all 2. Feeling down, depressed, or hopeless: not at all 3. Trouble falling or staying asleep, or sleeping too much: not at all 4. Feeling tired or having little energy: not at all 5. Poor appetite or overeating: not at all 6. Feeling bad about yourself - or that you are a failure or have let yourself or your family down: not at all 7. Trouble concentrating on things, such as reading the newspaper or watching television: not at all 8. Moving or speaking so slowly that other people could have noticed. Or the opposite - being so fidgety or restless that you have been moving around a lot more than usual: not at all 9. Thoughts that you would be better off or of hurting yourself in some way: not at all Total score: 0 Depression Screening Interpretation: Negative Depression Screening Done: Yes 23964 - PHQ-9 Billing: Yes Source: Developed by Drs. aLrry Stockton, Bridget Nielsen, Didier Hernandez and colleagues, with an educational toya from [employer] Thrive Questionnaire Date Thrive assessed: 06/06/24 I am a: Patient What is your living situation today?: I have a steady place to live Within the past 12 months, did the food you bought not last and you didn't have the money to get more?: Never true Within the past 12 months, did you worry whether your food would run out before you got money to buy more?: Never true Do you have trouble paying for medicines?: No Do you have trouble getting transportation to medical appointments?: No Do you have trouble paying your heating and electricity bill?: No Do you have trouble taking care of your child, family member or friend?: No Do you have trouble with day-to-day activities such as bathing, preparing meals, shopping, managing finances, etc.?: No Are you currently unemployed and looking for a job?: No Are you interested in more education?: No Please select the resources that you would like help with: None Currently or been in a relationship where the following occur: No concerns reported THRIVE Score: 0 AUDIT C Alcohol Use Questionnaire (AUDIT-C) 1. How often do you have a drink containing alcohol?: Monthly or less 2. How many drinks containing alcohol do you have on a typical day when you are drinking?: 1 or 2 3. How often do you have six or more drinks on one occasion?: Never Total Score: 1 LUIS-7 AMB Questionnaire LUIS-7 Date LUIS - 7 assessed: 11/12/24 Feeling nervous, anxious, or on edge: 0 = Not at all Not being able to stop or control worryin = Not at all Worrying too much about different things: 0 = Not at all Trouble relaxin = Not at all Being so restless that it is hard to sit still: 0 = Not at all Becoming easily annoyed or irritable: 0 = Not at all Feeling afraid as if something awful might happen: 0 = Not at all Total LUIS-7 score (0-4 normal; 5-9 mild; 10-14 moderate; 15-21 severe): 0 Source: Developed by Drs. Larry Stockton, Bridget Nielsen, Didier Hernandez and colleagues, with an educational toya from [employer] LUIS-7 Assessment Billing LUIS-7 Assessment Tool: LUIS-7 Assessment 04151 Review of Systems Const Denies chills, Denies fatigue, Denies fever(s), Denies headache(s) and Denies weakness ENT Denies dizziness and Denies headache(s) Card Denies dyspnea Resp Denies cough, Denies dyspnea, Denies wheezing and Denies other (shortness of breath) Musc Denies numbness and Denies tingling Neuro Denies dizziness, Denies headache(s), Denies numbness, Denies tingling and Denies weakness Psych Denies anxiety and Denies depression Endo Denies fatigue Aller/Immun Denies wheezing Physical exam (Primary Care) Vital Signs: Last Vital Signs Temp 97.9 F 11/12/24 08:48 Pulse 58 11/12/24 08:48 Resp 14 11/12/24 08:48 BP 120/80 11/12/24 08:48 Pulse Ox 97 11/12/24 08:48 Oxygen Delivery Method Room Air 11/12/24 08:48 BMI result Body Mass Index 30.8 Tobacco/Smoking Status: Tobacco use Status Tobacco use date assessed 08/03/23 11/12/24 08:42 Patient Tobacco Use Status Former Tobacco user 11/12/24 08:42 Tobacco use type Cigarette 11/12/24 08:42 e-Cigarette/Vaping Use Never Used 11/12/24 08:42 PHQ-9: PHQ-9 Score PHQ-9: Total score 0 11/12/24 08:51 Depression Screening Interpretation: Negative Thrive Assessment: Date of Thrive Assessment Date Thrive assessed 06/06/24 11/12/24 08:42 Currently or been in a relationship where the following occur: No concerns reported Const General: well developed; No acute distress Nutritional Appearance: well nourished Orientation/consciousness: patient oriented x3 HENMT Head: Yes normocephalic and Yes atraumatic Eyes General: appearance normal, both eyes and all related structures Pupils: Equal, round and reactive pupils present EOM: EOMs intact bilaterally Resp Effort & Inspection: normal respiratory effort Neuro General: patient oriented x3 and gait normal Cranial nerves: Yes Equal, round and reactive pupils present Psych Affect: normal affect Coding Level of Care Code Est Pt Level 4 (61153) Diagnoses CAD (coronary artery disease) I25.10 Hyperlipidemia E78.5 Pre-diabetes R73.03 Adenocarcinoma of prostate C61 Mass of right side of neck R22.1 Additional Codes LUIS-7 Assessment Billing - LUIS-7 Assessment Tool: LUIS-7 Assessment 40817 ([id number]) PHQ-9 - 65503 - PHQ-9 Billing: Yes ([id number]) Assessment & Plan Assessment & Plan (1) CAD (coronary artery disease): Code(s): I25.10 - Atherosclerotic heart disease of [place] coronary artery without angina pectoris Category: Medical Plan: Lipids?have?been?well?controlled?and?he?is?on?aspirin More?recently?he?has?had?decreased?wall?motion?on?echocardiogram?and?has?some?increased?fatigue Cardiology?has?ordered?a?CT?angiogram?which?is?scheduled?for?today Continue?current?medications Follow-up?with?Cardiology?as?recommended (2) Hyperlipidemia: Comment: Cardiology recommends LDL target goal closer to 60 Code(s): E78.5 - Hyperlipidemia, unspecified Category: Medical Plan: Lipids?have?been?optimized?and?he?is?on?atorvastatin?and?Zetia Continue?current?medication?regimen Recheck?lipids?with?next?blood?draw (3) Pre-diabetes: Code(s): R73.03 - Prediabetes Category: Medical Plan: A1c?has?improved?from?6.1%?to?5.8%. Pre?diabetes?with?coronary?artery?disease?and?using?metformin?to?keep?blood?sugars?well?controlled. Discussed?a?goal?of?less?than?6.5%?with?patient. Continue?current?medication?and?will?monitor. (4) Adenocarcinoma of prostate: Code(s): C61 - Malignant neoplasm of prostate Category: Medical Plan: Followed?by?urology?and?has?had?recent?MRI.??He?has?an?appointment?to?follow-up?on?this?tomorrow. (5) Mass of right side of neck: Code(s): R22.1 - Localized swelling, mass and lump, neck Category: Medical Plan: Fluctuance at R neck with Valsalva. Checking?ultrasound?to?Rule out Laryngocele, Pharyngocele or Jugular Vein Phlebectasia. May?need?CT?scan w/ Valsalva May?need?referral?to?ENT Orders: Orders Comprehensive [place]. Panel Fast Today I25.10 - Atherosclerotic heart disease of [place]iat[place] coronary artery without angina pectoris, Z00.00 - Encounter for general adult medical examination without abnormal findings US soft tiss head and/or neck Today M54.2 - Cervicalgia Lipid Panel Today I25.10 - Atherosclerotic heart disease of [place]iat[place] coronary artery without angina pectoris, Z00.00 - Encounter for general adult medical examination without abnormal findings
[2024-11-12 08:48] VITALS: BP 120/80; PULSE 58; RESP 14; TEMP 36.6; O2SAT 97; BMI 30.8
--- OUTSIDE RECORDS SUMMARY | 2024-11-12 08:56 | XMS_ITS | Clinical Summary ---
Author Organization [facility] Address [address] [place] [address] Phone Care Team Providers Care Box Spinner Name Role Phone Moises Denny MD Primary Care Provider Encounters Date Type Department Care Team Description 09/12/2024 7:36 AM EDT - 09/12/2024 11:59 PM EDT Hospital Encounter [facility] CT Scan [address] [place] [phone] Encounter for screening for malignant neoplasm of respiratory organs; Personal history of nicotine dependence Discharge Disposition: Home or Self Care 08/21/2024 Telephone Lung Screening Program - [place] [address] [facility] [address] [place] [phone] Nisa Nielsen MA from Last 3 Months [...] Chest CT in 12 months. [employer] [place] ([id number]) -------- FINAL REPORT -------- Dictated By: Rosamaria Mesa Dictated Date: 09/17/2024 10:41 ET Assigned Physician: Rosamaria Mesa Reviewed and Electronically Signed By: Rosamaria Mesa Signed Date: 09/17/2024 10:49 ET Workstation ID: [id number] Transcribed By: Self Edit Transcribed Date: 09/17/2024 10:41 ET Narrative 09/17/2024 10:49 AM EDT History: ??69 year-old 35 pack-year former smoker, asymptomatic, for lung cancer screening. Quit smoking 15 years ago. Comparison: 09/12/23 Technique: Helical volumetric imaging of the thorax was performed, using low- dose technique, without IV contrast. DLP: 172.50 mGy/cm ??CTDIvol: 4.83 mGy [employer] VCT Iterative reconstruction technique Findings: Lungs and [...] contrast. DLP: 172.50 mGy/cm CTDIvol: 4.83 mGy [employer] VCT Iterative reconstruction technique Findings: Lungs and [...] Low Dose Chest CT in 12 months. [employer] [place] ([id number]) -------- FINAL REPORT -------- Dictated By: Rosamaria Mesa Dictated Date: 09/17/2024 10:41 ET Assigned Physician: Rosamaria Mesa Reviewed and Electronically Signed By: Rosamaria Mesa Signed Date: 09/17/2024 10:49 ET Workstation ID: [id number] Transcribed By: Self Edit Transcribed Date: 09/17/2024 10:41 ET Kaedn Ross MD IMG CT PROCEDURES Final Result from Last 3 Months Insurance MEDICARE [facility] Care Teams Box Spinner Relationship Specialty Start Date End Date Moises Denny MD [address] [place] [address] Dr Silvana [place] PCP - General Family Medicine 09/11/24
== END 2024-11-12 09:03 | disposition home or self-care (01) ==
LOC: HO.HMCFM 08:39
PROVIDERS: PCP Family Medicine; Visit Provider Family Medicine
DX: I25.10 Atherosclerotic heart disease of native coronary artery without angina pectoris (principal); E78.5 Hyperlipidemia, unspecified; R73.03 Prediabetes; C61 Malignant neoplasm of prostate; R22.1 Localized swelling, mass and lump, neck

== ENCOUNTER → 2024-11-12 08:38 | Outpatient (BNVA) | payer MEDICARE, SELFPAY | PROVIDERS: PCP Family Medicine; Visit Provider Family Medicine | DX: I25.10 Atherosclerotic heart disease of native coronary artery without angina pectoris (principal); E78.5 Hyperlipidemia, unspecified; R73.03 Prediabetes; C61 Malignant neoplasm of prostate; R22.1 Localized swelling, mass and lump, neck | CPT/HCPCS: 83036; 96127; 99212 ==

== ENCOUNTER 2024-11-13 08:00 | Outpatient (AMB) | payer MEDICARE, SELFPAY ==
--- OUTSIDE RECORDS SUMMARY | 2024-11-13 08:04 | XMS_ITS | Clinical Summary ---
Author Organization [facility] Address [address] [place] [address] Phone Care Team Providers Care Rec Therapist Name Role Phone Moises Denny MD Primary Care Provider Encounters Date Type Department Care Team Description 09/12/2024 7:36 AM EDT - 09/12/2024 11:59 PM EDT Hospital Encounter [facility] CT Scan [address] [place] [phone] Encounter for screening for malignant neoplasm of respiratory organs; Personal history of nicotine dependence Discharge Disposition: Home or Self Care 08/21/2024 Telephone Lung Screening Program - [place] [address] [facility] [address] [place] [phone] Nisa Nielsen MA from Last 3 Months [...] Chest CT in 12 months. [employer] [place] ([id number]) -------- FINAL REPORT -------- Dictated By: Rosamaria Mesa Dictated Date: 09/17/2024 10:41 ET Assigned Physician: Rosamaria Mesa Reviewed and Electronically Signed By: Rosamaria Mesa Signed Date: 09/17/2024 10:49 ET Workstation ID: [id number] Transcribed By: Self Edit Transcribed Date: 09/17/2024 10:41 ET Narrative 09/17/2024 10:49 AM EDT History: ??69 year-old 35 pack-year former smoker, asymptomatic, for lung cancer screening. Quit smoking 15 years ago. Comparison: 09/12/23 Technique: Helical volumetric imaging of the thorax was performed, using low- dose technique, without IV contrast. DLP: 172.50 mGy/cm ??CTDIvol: 4.83 mGy [employer] VCT Iterative reconstruction technique Findings: Lungs and [...] contrast. DLP: 172.50 mGy/cm CTDIvol: 4.83 mGy [employer] VCT Iterative reconstruction technique Findings: Lungs and [...] Low Dose Chest CT in 12 [place] [employer] [place] ([id number]) -------- FINAL REPORT -------- Dictated By: Rosamaria Mesa Dictated Date: 09/17/2024 10:41 ET Assigned Physician: Rosamaria Mesa Reviewed and Electronically Signed By: Rosamaria Mesa Signed Date: 09/17/2024 10:49 ET Workstation ID: [id number] Transcribed By: Self Edit Transcribed Date: 09/17/2024 10:41 ET Kaden Ross MD IMG CT PROCEDURES Final Result from Last 3 Months Insurance MEDICARE [facility] Care Teams Rec Therapist Relationship Specialty Start Date End Date Moises Denny MD [address] [place] [address] Dr Silvana [place] PCP - General Family Medicine 09/11/24
--- NOTE | 2024-11-13 08:15 | MHC.OFFVIS ---
Intake Visit Reasons: 7m/MRI/PSA Intake Note: Patient is present for 7m follow up/MRI/PSA MRI 10/21 Total PSA: 5.94 Free PSA: 0.7 Urology Medication:none Antibiotic Allergy:penicillins Blood Thinner:aspirin Continuous Miner Required: No Allergies penicillamine Allergy (Unknown, Verified 11/13/24 08:31) unknown Penicillins Adverse Reaction (Intermediate, Verified 11/13/24 08:31) CHILDHOOD, Anaphylaxis Medication List - Last Reconciled 11/13/24 by Clem Blank MD aspirin (Adult Low Dose Aspirin) 81 mg PO DAILY atorvastatin 80 mg PO DAILY 90 days ezetimibe 10 mg PO DAILY metformin 250 mg (1/2 x 500 mg) PO DAILY 90 days HPI Comments Details: 11/13/24--Valeria is on active surveillance for diagnosis of prostate cancer he presents for follow-up post repeat MRI. In review of the MRI the patient again had to suspicious lesions that have slightly increased in size lesion 1- 7 mm to 8 mm lesion 2- 5 mm to 8 mm. No evidence of extra capsular extension. Repeat PSA 10/21/2024 was 5.94 ng/mL. I have discussed management options to continue active surveillance with repeat MRI guided biopsy as well as consider definitive therapies. The patient wants to revisit the radiation oncologist. He would like a consultation with Urology/Oncology Dr. Underwood as well. MRI-Prostate- 10/21/24-- Focus of abnormal signal intensity in the left lateral peripheral zone at the apex, suspicious for clinically significant prostate carcinoma. A 2nd focus at the left base is equivocal due to the wedge shape and increased T1 signal intensity, suggestive of hemorrhage. Results: PSA 10/21/2024 was 5.94 ng/mL. 04/16/24--Valeria is here with his for follow up. Here to discuss Polaris results. [employer] Prolaris test is a genetic test that measures tumor cell growth to help determine how aggressive a patient's prostate cancer is: The Prolaris test combines a personalized tumor score with prostate-specific antigen and Susie scores to provide an assessment of how aggressively a patient's prostate cancer will progress over the next ten years. His Polaris score is 3.1 which is suggestive that he may be a candidate for active surveillance. Plan MRI and PSA in 6 months.30 minutes spent in review of records pertaining to this visit and including [id number] discussion with the patient and documentation of this visit. 02/13/24--Valeria is here post MRI guided prostate biopsy, the patient is here with his and I reviewed biopsy results: 1 biopsy 3+3 = 7, grade group 2. All other positive biopsies were Susie 3+3=6 grade group 1. I have discussed treatment options to include active surveillance, robotic radical prostatectomy and radiation therapy. I will send biopsies for a [place] gene test. Discussed second opinion with Dr. Underwood at [facility] regarding prostatectomy and radiation oncologist in the immediate area. 11/23/2023--Valeria is followed for elevated PSA. He is status post MRI of the prostate and repeat PSA. Dr. Martinez discussed results with the patient. MRI noted a 0.7 cm PIRAD 4 lesion at the left mid gland peripheral zone and a 0.5 cm PIRAD 4 lesion at the left apex peripheral zone. Repeat PSA 11/21/2023--total PSA 5.58 ng/mL, free PSA 0.8 ng/mL, 16%. MRI guided prostate biopsy discussed. 09/07/2023- Valeria is a 68-year-old male who was initially evaluated for elevated PSA on 08/23/2023. I discussed repeating PSA. I have reviewed repeat PSA results on 08/24/2023 was 4.89 % free 16. I have discussed proceeding with prostate biopsy. The patient had excellent questions regarding imaging modalities and risks and benefits of the prostate biopsy. Plan will be to get an MRI for further evaluation of the prostate. 08/23/2023--Valeria is a 68-year-old male who is here for evaluation due to elevated PSA. He denies irritative voiding symptoms. Past medical history significant for coronary artery disease he is followed by Cardiology. PSA 06/01/2023 is 4.99 ng/mL. I have discussed that elevated PSA may indicate changes in the prostate including benign enlargement, cancer and an inflammatory condition. I have discussed doing a biopsy has risks and that management in early detection of prostate cancer may include active surveillance. Plan is to repeat PSA. If remains elevated will discuss prostate biopsy to be scheduled. [facility] Medical History Pre-diabetes Enlarged thoracic aorta Hyperlipidemia CAD (coronary artery disease) Surgical History Hx of eye surgery History of open reduction and internal fixation (ORIF) procedure Family History Mother No problems noted. Father CVD (cardiovascular disease) Brother Hx of CABG Brother No problems noted. Son No problems noted. Son No problems noted. Daughter No problems noted. Social History Household Members: Spouse Housing: House Alcohol intake: current Alcohol intake frequency: holidays/special occasions only Comment: Sporadic drinker-more socially Patient Tobacco Use Status: Former Tobacco user Tobacco use type: Cigarette Years Smoked: 30 e-Cigarette/Vaping Use: Never Used service: No Current occupational status: retired Current occupational exposures/hazards: No Sexual orientation: Unable to collect Gender identity: Unable to collect Cognitive needs: No Hearing needs: Yes Vision needs: Yes Review of Systems Const All systems reviewed & are unremarkable except as noted in HPI and below Reports no additional complaints Eyes Reports no additional complaints ENT Reports no additional complaints Card Reports no additional complaints Resp Reports no additional complaints GI Reports no additional complaints Reports as per HPI Musc Reports no additional complaints Skin/Breast Reports system reviewed and no additional complaints, except as documented Neuro Reports no additional complaints Psych Reports no additional complaints Endo Reports no additional complaints Mac/Lymph Reports no additional complaints Aller/Immun Reports no additional complaints Results AMB Urinalysis, Automated UA Leukoctes 0 Skyler/uL Last Edit by Brandy Smith on 11/13/24 12:33 UA Nitrite Negative Last Edit by Brandy Smith on 11/13/24 12:33 UA Urobilinogen 3.5 mg/dL Last Edit by Brandy Smith on 11/13/24 12:33 UA Protein 0 mg/dL Last Edit by Brandy Smith on 11/13/24 12:33 UA pH 5.5 Last Edit by Brandy Smith on 11/13/24 12:33 UA Blood 0 Eduardo/uL Last Edit by Brandy Smith on 11/13/24 12:33 UA Specific [place] 1.010 Last Edit by Brandy Smith on 11/13/24 12:33 UA Ketone Negative Last Edit by Brandy Smith on 11/13/24 12:33 UA Bilirubin 0 mg/dL Last Edit by Brandy Smith on 11/13/24 12:33 UA Glucose 0 mg/dL Last Edit by Brandy Smith on 11/13/24 12:33 Results Reviewed Results Reviewed: Date of Service: 10/21/24 EXAMINATION: MR PELVIS WITHOUT THEN WITH IV CONTRAST HISTORY: C61 - Malignant neoplasm of prostate TECHNIQUE: 1.5T body coil survey of the pelvis was performed. Phase array coil imaging of the prostate was performed in multiplanar high resolution axial, coronal, sagittal fast spin echo T2 and axial T1 weighted imaging sequences. Axial diffusion imaging at intermediate and high field performed with ADC mapping. Next, mL Gadavist was given by intravenous infusion, and dynamic axial imaging performed. COMPARISON: There are no prior studies for comparison. CLINICAL DATA: Most recent PSA: 5.94 ng/mL on 10/21/2024 PSA Density: 0.13 ng/mL squared Prostate Biopsy: Positive biopsy on 01/22/2024 with a Susie score 3+7 = 7. FINDINGS: Prostate size: 4.3 x 5.1 x 4.1 cm. Calculated prostate volume is 46.8 mL. Hemorrhage: There are wedge-shaped foci of increased T2 signal intensity in the peripheral zone compatible with hemorrhage. Transitional Zone: There is moderate heterogeneous nodular hypertrophy of the transitional zone. Peripheral Zone: There are areas of interest in the peripheral zone as described below: Lesion #1, in the left lateral peripheral zone at the apex (series 7, images 25-26) measuring 8 mm in size: DWI PI-RADS v2.1 score: 4 T2 PI-RADS v2.1 score: 4 DCE PI-RADS v2.1 score: + Overall PI-RADS v2.1 score: 4 Capsular contact: no Extracapsular extension: None Seminal vesicle invasion: None Neurovascular bundle involvement: None Lesion #2, a wedge shaped focus in the left lateral peripheral zone at the base (series 7, images 18-19) measuring 8 mm in size and corresponding to an area of increased T1 signal intensity: DWI PI-RADS v2.1 score: 3 T2 PI-RADS v2.1 score: 3 DCE PI-RADS v2.1 score: - Overall PI-RADS v2.1 score: 3 Capsular contact: yes Extracapsular extension: None Seminal vesicle invasion: None Neurovascular bundle involvement: None Seminal Vesicles/Ejaculatory Ducts: Symmetric and normal in signal and caliber. Pelvic Lymph Nodes: No obturator or internal iliac lymph nodes meeting size criteria for adenopathy. Marrow Signal: Normal marrow signal and enhancement without focal lesion identified. IMPRESSION: Focus of abnormal signal intensity in the left lateral peripheral zone at the apex, suspicious for clinically significant prostate carcinoma. A 2nd focus at the left base is equivocal due to the wedge shape and increased T1 signal intensity, suggestive of hemorrhage. PI-RADS 4: High (clinically significant cancer is likely to be present) PI-RADS Assessment Categories PI-RADS 1: Very low (clinically significant cancer is highly unlikely to be present) PI-RADS 2: Low (clinically significant cancer is unlikely to be present) PI-RADS 3: Intermediate (the presence of clinically significant cancer is equivocal) PI-RADS 4: High (clinically significant cancer is likely to be present) PI-RADS 5: Very high (clinically significant cancer is highly likely to be present) Collected: 01/22/24 Location: [facility] Received: 01/22/24 Diagnosis Prostate, needle core biopsies: A. F 3.0: Stroma, fibroadipose tissue, and skeletal muscle. B. F 2.5: Prostatic adenocarcinoma, Susie score 6 (3+3), grade group 1, 2.5 mm, 1 of 2 cores, 13% of tissue. C. F 2.0: Benign prostatic tissue. D. e 2.5: Benign prostatic tissue. E. e 2.0: Benign prostatic tissue. F. E 3.5: Benign prostatic tissue. G. E 3.0: Prostatic adenocarcinoma, Susie score 6 (3+3), grade group 1, 0.3 mm, 1 of 2 cores, 3% of tissue. H. E 2.5: Prostatic adenocarcinoma, [place] score 6 (3+3), grade group 1, 4 mm, 29% of core. I. d 4.5: Fibrovascular tissue, skeletal muscle and skin. J. d 2.0: Benign prostatic tissue. K. c 4.5: Prostatic adenocarcinoma, Susie score 7 (3+4), grade group 2, 10% pattern 4, 2.5 mm, 1 of 2 cores, 18% of tissue L. C 3.5: Prostatic adenocarcinoma, [place] score 6 (3+3), grade group 1, 5 mm, 42% of core. M. C 2.0: Fibroadipose tissue only. N. b 2.5: Benign prostatic tissue. O. b 2.5: Stroma, fibroadipose tissue, skeletal muscle and skin. P. B 3.0: Rare atypical glands, suspicious for prostatic adenocarcinoma. Data synopsis - Prostate needle biopsy Patient: Valeria Coffman Age/Sex: 68/M MR#: [id number] Surgical Pathology [id number] Histologic type: Adenocarcinoma, acinar type Histologic grade: Susie score: 7 (3+4) (c 4.5) 6 (3+3) (F 2.5, E 3.0, E 2.5, C 3.5) % of pattern 4: 1.7 % % of pattern 5: 0 % Grade group: 2 and 1 Tumor quantitation: Number cores positive: 5 Total number of cores: 35 % of tissue involved: 8.7 % Periprostatic fat inv.: Not identified Seminal vesicle inv.: Not identified Perineural inv.: Not identified Lymphovascular invasion: Not identified Clinical History Elevated PSA Assessment & Plan Assessment & Plan (1) Adenocarcinoma of prostate: Code(s): C61 - Malignant neoplasm of prostate Category: Medical Plan I have discussed management options to continue active surveillance with repeat MRI guided biopsy as well as consider definitive therapies. The patient wants to revisit the radiation oncologist. He would like a consultation with Urology/Oncology Dr. Underwood as well. Orders: Orders AMB Urinalysis Automated Today Z13.9 - Encounter for screening, unspecified Patient Instructions: The patient had an opportunity to ask questions regarding treatment plan. The patient expressed understanding and agreement with the above treatment plan. The patient is aware they should contact our office by phone for worsening of their current condition or the appearance of new symptoms. Compliance is encouraged with any medications and followup testing that is ordered. It is a privilege to be allowed the opportunity to participate in the urologic care of your patient. If you have any questions or concerns regarding treatment for the above conditions please do not hesitate to contact me. The office telephone contact is [phone]. This note is constructed in part using voice recognition software. While every effort has been made to ensure accuracy payroll machine operator errors may have been included. Yours sincerely, Clem Blank MD Coding Level of Care Code Est Pt Level 4 (24386) Diagnoses Adenocarcinoma of prostate C61
== END 2024-11-13 09:04 | disposition home or self-care (01) ==
LOC: HO.HUSH 08:01
PROVIDERS: PCP Family Medicine; Visit Provider Urology
DX: Z13.9 Encounter for screening, unspecified (principal)

== ENCOUNTER → 2024-11-13 08:00 | Outpatient (BNVA) | payer MEDICARE, SELFPAY | PROVIDERS: PCP Family Medicine; Visit Provider Urology | DX: C61 Malignant neoplasm of prostate (principal) | CPT/HCPCS: 81003; 99212 ==

== ENCOUNTER 2024-12-05 09:39 | Outpatient (REF) | payer MEDICARE, SELFPAY ==
--- OUTSIDE RECORDS SUMMARY | 2024-12-05 09:51 | XMS_ITS | Clinical Summary ---
Author Organization [facility] Address [address] [place] [address] Phone Care Team Providers Care Tape Machine Tailer Name Role Phone Moises Denny MD Primary Care Provider [phone] Encounters Date Type Department Care Team Description 09/12/2024 7:36 AM EDT - 09/12/2024 11:59 PM EDT Hospital Encounter [facility] CT Scan [address] [place] [address] Encounter for screening for malignant neoplasm of respiratory organs; Personal history of nicotine dependence Discharge Disposition: Home or Self Care from Last 3 Months Medical History Medical [...] Lung-RADS 1: No nodules or definitely benign nodules. Continue annual screening with Low Dose Chest CT in 12 months. [employer] [place] ([id number]) -------- FINAL REPORT -------- Dictated By: Rosamaria Mesa Dictated Date: 09/17/2024 10:41 ET Assigned Physician: Rosamaria Mesa Reviewed and Electronically Signed By: Rosamaria Mesa Signed Date: 09/17/2024 10:49 ET Workstation ID: [id number] Transcribed By: Self Edit Transcribed Date: 09/17/2024 10:41 ET Narrative 09/17/2024 10:49 AM EDT History: 69 year-old 35 pack-year former smoker, asymptomatic, for lung cancer screening. Quit smoking 15 years ago. Comparison: 09/12/23 Technique: Helical volumetric imaging of the thorax was performed, using low- dose technique, without IV contrast. DLP: 172.50 mGy/cm CTDIvol: 4.83 mGy [employer] VCT Iterative reconstruction technique Findings: Lungs and [...] contrast. DLP: 172.50 mGy/cm CTDIvol: 4.83 mGy E-Generator VCT Iterative reconstruction technique Findings: Lungs and [...] Dose Chest CT in 12 months. [employer] MIGUEL ([id number]) -------- FINAL REPORT -------- Dictated By: Rosamaria Mesa Dictated Date: 09/17/2024 10:41 ET Assigned Physician: Rosamaria Mesa Reviewed and Electronically Signed By: Rosamaria Mesa Signed Date: 09/17/2024 10:49 ET Workstation ID: [id number] Transcribed By: Self Edit Transcribed Date: 09/17/2024 10:41 ET us Kdaen Ross MD IMG CT PROCEDURES Final Result from Last 3 Months Insurance MEDICARE [facility] Care Teams Tape Machine Tailer Relationship Specialty Start Date End Date Moises Denny MD [address] [place] [address] Dr Silvana [place] PCP - General Family Medicine 09/11/24
[2024-12-05 12:07] LABS: Alanine Aminotransferase 34 U/L (0-40); Albumin Level 4.3 g/dL (3.5-5.0); Alkaline Phosphatase 88 U/L (39-117); Anion Gap 9 (12-20); Aspartate Amino Transferase 33 U/L (5-37); Blood Urea Nitrogen 24 mg/dL (9-16); Calcium 9.6 mg/dL (8.4-10.2); Carbon Dioxide 27 mmol/L (22-29); Chloride 107 mmol/L (96-108); Cholesterol 104 mg/dL (<200); Estimated Glomerular Filt Rate > 60; Glucose Fasting 99 mg/dL (60-99); HDL Cholesterol 44 mg/dL (>40); LDL Cholesterol Calculated 42 mg/dL (<100); Potassium 4.5 mmol/L (3.3-5.1); Sodium 138 mmol/L (135-145); Total Protein 7.4 g/dL (6.5-8.0); Triglycerides 93 mg/dL (<150)
== END 2024-12-05 09:40 | disposition home or self-care (01) ==
LOC: HO.WFDLDS 09:39
PROVIDERS: Visit Provider Family Medicine
DX: I25.10 Atherosclerotic heart disease of native coronary artery without angina pectoris (principal); Z00.00 Encounter for general adult medical examination without abnormal findings
CPT/HCPCS: 36415; 80053; 80061

== ENCOUNTER 2024-12-16 11:17 | Outpatient (REF) | payer MEDICARE, SELFPAY ==
--- NOTE | ~2024-12-16 | US_ITS ---
CLINICAL HISTORY: M54.2 - Cervicalgia --- Additional Notes or Special Instructions: Fluctuance at R neck with Valsalva. Rule out Laryngocele, Pharyngocele or US neck Comparison: None provided Findings: There are no cystic or solid masses and no pathological appearing lymph nodes. Note is made of asymmetry of the jugular veins, significance indeterminate. Impression: 1. Jugular venous asymmetry, significance indeterminate. Correlate clinically. 2. Otherwise, unremarkable exam This document has been electronically signed by: Glenn Mcgovern MD on 12/18/2024 09:57:57
--- OUTSIDE RECORDS SUMMARY | 2024-12-16 12:32 | XMS_ITS | Clinical Summary ---
Author Organization [facility] Address [address] [place] [phone] Phone Care Team Providers Care Rn Hemodialysis Charge Name Role Phone Moises Denny MD Primary Care Provider Medical History Medical History Date Comments High [...] 2023-2 5 season) 2024 Influenza Vaccine (#1) 2025 9, 04/17/2016 DTaP,Tdap,and Td Vaccines (3 - Td [...] COLONOSCOPY REPORT Routine 10/09/2024 2:00 PM EDT from Last 3 Months Results * External Colonoscopy Report (10/09/2024 2:00 PM EDT) Anatomical Region Laterality Modality Endoscopy us Historical Provider GI~PROCEDURE ORDERABLES F inal Result from Last 3 Months Insurance MEDICARE [facility] Care Teams Rn Hemodialysis Charge Relationship Specialty Start Date End Date Moises Denny MD [address] [place] [address] Dr Silvana [place] PCP - General Family Medicine 09/11/24
== END 2024-12-16 11:18 | disposition home or self-care (01) ==
LOC: HO.HMGCX 11:17
PROVIDERS: PCP Family Medicine; Visit Provider Family Medicine
DX: M54.2 Cervicalgia (principal)
CPT/HCPCS: 76536

== ENCOUNTER → 2024-12-16 11:19 | Outpatient (BNV) | payer MEDICARE, SELFPAY | PROVIDERS: PCP Family Medicine; Visit Provider Specialist | DX: M54.2 Cervicalgia (principal) | CPT/HCPCS: 76536 ==

== ENCOUNTER 2025-01-20 08:36 | Outpatient (AMB) | payer MEDICARE, SELFPAY ==
--- NOTE | 2025-01-20 08:47 | A.OFFPC_ITS ---
Vital Signs 01/20/25 08:50 Height 6 ft Weight 225 lb BMI 30.5 BP 120/70 Blood Pressure Location Lt brachial Position Sitting Respiration 14 Pulse 60 Pulse Source Pulse Oximeter Temp 97.8 F Temp Source Oral Pulse Oximetry (%) 94 Oxygen Delivery Method Room Air Intake Visit Reasons: f/u ultrasound in person Intake Note: patient is scheduled to review ultrasound results Company Manager Required: No Allergies penicillamine Allergy (Unknown, Verified 01/20/25 08:49) unknown Penicillins Adverse Reaction (Intermediate, Verified 01/20/25 08:49) CHILDHOOD, Anaphylaxis Tobacco use date assessed: 08/03/23 Dental Screening Dental Screen Date: 02/08/23 HPI f/u ultrasound in person HPI Details 69 y/o male presents to f/u ultrasound o f his neck. Ultrasound 12/18/24 shows: Impression: 1. Jugular venous asymmetry, significanc e indeterminate. Correlate clinically. 2. Otherwise, unremarkable exam HPI Comments History of Present Illness Details Documentation assistance for Moises Denny MD, was provided by Cedrick Oconnor, Applications Systems Analyst on 01/20/2025 at 9:05 AM BUFFY. I, Dr. Denny, have read, observed, and verified documentation. [facility] Medical History Pre-diabetes Enlarged thoracic aorta Hyperlipidemia CAD (coronary artery disease) Surgical History Hx of eye surgery History of open reduction and internal fixation (ORIF) procedure Family History Mother No problems noted. Father CVD (cardiovascular disease) Brother Hx of CABG Brother No problems noted. Son No problems noted. Son No problems noted. Daughter No problems noted. Social History Household Members: Spouse Housing: House Alcohol intake: current Alcohol intake frequency: holidays/special occasions only Comment: Sporadic drinker-more socially Patient Tobacco Use Status: Former Tobacco user Tobacco use type: Cigarette Years Smoked: 30 e-Cigarette/Vaping Use: Never Used service: No Current occupational status: retired Current occupational exposures/hazards: No Sexual orientation: Unable to collect Gender identity: Unable to collect Cognitive needs: No Hearing needs: Yes Vision needs: Yes Questionnaire Thrive Questionnaire Date Thrive assessed: 11/05/24 I am a: Patient What is your living situation today?: I have a steady place to live Within the past 12 months, did the food you bought not last and you didn't have the money to get more?: Never true Within the past 12 months, did you worry whether your food would run out before you got money to buy more?: Never true Do you have trouble paying for medicines?: No Do you have trouble getting transportation to medical appointments?: No Do you have trouble paying your heating and electricity bill?: No Do you have trouble taking care of your child, family member or friend?: No Do you have trouble with day-to-day activities such as bathing, preparing meals, shopping, managing finances, etc.?: No Are you currently unemployed and looking for a job?: No Are you interested in more education?: No Please select the resources that you would like help with: None Currently or been in a relationship where the following occur: No concerns reported THRIVE Score: 0 LUIS-7 AMB Questionnaire LUIS-7 Date LUIS - 7 assessed: 11/12/24 Source: Developed by Drs. Larry Stockton, Bridget Nielsen, Didier Hernandez and colleagues, with an educational toya from [employer]. Review of Systems Const Denies chills, Denies fatigue, Denies fever(s), Denies headache(s) and Denies weakness ENT Denies dizziness and Denies headache(s) Card Denies chest pain, Denies lightheadedness, Denies dyspnea and Denies other (Palpitations) Resp Denies cough, Denies dyspnea, Denies wheezing and Denies other ( shortness of breath) Musc Denies numbness and Denies tingling Neuro Denies dizziness, Denies headache(s), Denies numbness, Denies tingling, Denies paresthesias and Denies weakness Psych Denies anxiety and Denies depression Endo Denies fatigue Aller/Immun Denies wheezing Physical exam (Primary Care) Vital Signs: Last Vital Signs Temp 97.8 F 01/20/25 08:50 Pulse 60 01/20/25 08:50 Resp 14 01/20/25 08:50 BP 120/70 01/20/25 08:50 Pulse Ox 94 01/20/25 08:50 Oxygen Delivery Method Room Air 01/20/25 08:50 BMI result Body Mass Index 30.5 Tobacco/Smoking Status: Tobacco use Status Tobacco use date assessed 08/03/23 01/20/25 08:48 Patient Tobacco Use Status Former Tobacco user 01/20/25 08:48 Tobacco use type Cigarette 01/20/25 08:48 e-Cigarette/Vaping Use Never Used 01/20/25 08:48 Thrive Assessment: Date of Thrive Assessment Date Thrive assessed 11/05/24 01/20/25 08:48 Currently or been in a relationship where the following occur: No concerns reported Const General: no acute distress and well developed Nutritional Appearance: well nourished Orientation/consciousness: patient oriented x3 HENMT Head: Yes normocephalic and Yes atraumatic Eyes General: appearance normal, both eyes and all related structures Pupils: Equal, round and reactive pupils present EOM: EOMs intact bilaterally Resp Effort & Inspection: normal respiratory effort Auscultation: clear to auscultation bilaterally Cardio Rate: regular rate Rhythm: regular rhythm Heart sounds: S1 normal heart sound present, S2 normal heart sound present, no gallops, no murmurs and no rubs Neuro General: patient oriented x3 and gait normal Cranial nerves: Yes Equal, round and reactive pupils present Psych Affect: normal affect Coding Level of Care Code Est Pt Level 4 (10491) Diagnoses 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 Ultrasound shows Jugular venous asymmetry but no other problems. Lymph nodes normal. This appears to be internal jugular venous phlebectasia - asymptomatic. Reassured patient and advised that if has any symptoms consistent with Justin syndrome or the problems he can let me know. (2) CAD (coronary artery disease): Code(s): I25.10 - Atherosclerotic heart disease of [place] coronary artery without angina pectoris Category: Medical Plan: Lipids well controlled. LDL goal is less than 60-70 Continue current medications (3) Pre-diabetes: Code(s): R73.03 - Prediabetes Category: Medical Plan: Taking metformin as prescribed Will recheck A1c with his upcoming pre physical labs (4) Adenocarcinoma of prostate: Code(s): C61 - Malignant neoplasm of prostate Category: Medical Plan: Followed by [facility] Will check PSA with pre physical labs Orders: Orders Comprehensive [place]. Panel Fast Today Z00.00 - Encounter for general adult medical examination without abnormal findings Complete Blood Count Auto Diff Today Z00.00 - Encounter for general adult medical examination without abnormal findings Prostate Specific Antigen Scr Today Z12.5 - Encounter for screening for malignant neoplasm of prostate Hemoglobin A1c Today R73.01 - Impaired fasting glucose Microalbumin, Random (w Creat) Today I10 - Essential (primary) hypertension Lipid Panel Today Z00.00 - Encounter for general adult medical examination without abnormal findings UA CC w/rflx Micro + Cult Today Z00.00 - Encounter for general adult medical examination without abnormal findings TSH reflex Free T4 Today Z00.00 - Encounter for general adult medical examination without abnormal findings
--- OUTSIDE RECORDS SUMMARY | 2025-01-20 08:47 | XMS_ITS | Clinical Summary ---
Author Organization [facility] Address [address] [place] [phone] Phone Care Team Providers Care Segregator Name Role Phone Moises Denny MD Primary [...] Screen 05/21/2022 Cholesterol Screening (Lipid Panel) 05/21/2022 Falls Risk Assessment 05/21/2022 Hepatitis C Screening 05/21/2022 Medicare Annual Wellness Visit 05/21/2022 Social Influencers of Health Screening 05/21/2022 COVID-19 Vaccine (1 - 2023-2 5 season) 2024 Depression Screening 06/18/2024 Influenza Vaccine (#1) 2025 9, 04/17/2016 DTaP,Tdap,and [...] 2:00 PM EDT from Last 3 Months or Most Recently Relevant to Health Maintenance Results * External Colonoscopy Report (10/09/2024 2:00 PM EDT) Anatomical Region Laterality Modality Endoscopy us Historical Provider GI~PROCEDURE ORDERABLES F inal Result from Last 3 Months or Most Recently Relevant to Health Maintenance Insurance MEDICARE [facility] Care Teams Segregator Relationship Specialty Start Date End Date Moises Denny MD [address] [place] [address] Dr Rubyke [place] PCP - General Family Medicine 09/11/24
--- OUTSIDE RECORDS SUMMARY | 2025-01-20 08:47 | XMS_ITS | Encounter Summary ---
Author Organization [facility] Address [address] [place] [address] Phone Care Team Providers Care Slasher Sawyer Name Role Phone Moises Denny MD Primary Care Provider Self-Referred, Patient Unavailable Unavailab le Encounter Details Date Type Department Care Team (Latest Contact Info) Description 12/16/2024 Transcribe Orders [facility] [address] [place] [phone] Tonya Castillo [address] [place] [id number] [email or web address] Elevated PSA (Primary Dx) Social History Tobacco Use Types Packs/Day Years Used Date Smoking Tobacco: Former Cigarettes Smokeless Tobacco: Never Child or Family Care Answer Date Record ed Do you have problems with on e of the following making it difficult for you to work, study, or receive health care? No 11/29/2024 Education Answer Date Recorded Are you interested in more education? Not on leonor e 10/22/2024 Are you concerned about learning? Not on file 10/22/2024 No 10/22/2024 No 10/22/2024 Food Answer Date Recorded Within the past 6 months we worried whether our food would run out before we got money to buy more. Never True 11/29/2024 Within the past 6 months the food we bought just didn't last and we didn't have enough money to get more. Never True Residential Stability Answer Date Recor ded What is your housing situation today? I have jared thomas 11/29/2024 How many times have you move d in the past 12 months? Zero (I did not move) 11/29/2024 Paying for Meds Answer Date Recorded Do you have trouble paying for medicines? No 11/29/2024 Paying Utility Bills Answer Date Record ed Do you have trouble paying your heating or elect ricity bill? No 11/29/2024 Transportation Answer Date Recorded Has the lack of transportati on kept you from medical appointments or from getting medications? No 11/29/2024 Digital Access Answer Date Recorded No 10/22/2024 No 10/22/2024 Reliable internet access at home? Not on file 10/22/2024 Device with a working camera? Not on file Intimate Partner Violence Answer Date R ecorded Are you denied basic needs s uch as food, clothing, or medical care? No 12/17/2024 In the past 12 months have y ou been in a relationship with a person who hurts, threatens, or tries to control you? No 12/17/2024 Are you denied basic needs s uch as food, clothing, or medical care? No 12/17/2024 In the past 12 months have y ou been in a relationship with a person who hurts, threatens, or tries to control you? No 12/17/2024 Sex and Gender Information Value Date Recorded Sex Assigned at Male 10/22/2024 1:46 PM EDT Legal Sex Male 1:45 PM EDT Gender Identity Male 10/22/2024 1:46 PM EDT Sexual Orientation Straight 10/22/2024 1: 46 PM EDT documented as of this encounter Plan of Treatment Not on file documented as of this encounter Results * MRI Pelvis (Soft Tissue) Outside With Interpretation Or Consult (10/21/2024 12:00 AM EDT) 12/16/2024 12:0 6 PM EDT [facility] - 12/16/2024 12:15 PM EDT A 0.6 cm left prostate mid gland peripheral zone finding, has triangular shape and may represent sequelae of prior prostatitis; still, meets PI-RADS 3 criteria. PI-RADS 1: Very low (clinically significant cancer is highly unlikely to be present) PI-RADS 2: Low (clinically significant cancer is unlikely to be present) PI-RADS 3: Intermediate (the presence of clinically significant cancer is equivocal) PI-RADS 4: High (clinically significant cancer is likely to be present) PI-RADS 5: Very high (clinically significant cancer is highly likely to be present) [employer]. MR Prostate Imaging Reporting and Data System. http://www.acr.org/Quality-Safety/Resources/PIRADS/ Narrative [facility] - 12/16/2024 12:15 PM EDT MRI PELVIS (SOFT TISSUE) OUTSIDE WITH INTERPRETATION OR CONSULT Referring clinician's provided indication for this examination in Epic: MRI PROSTATE OUTSIDE READ, ELEVATED PSA; OUTSIDE IMAGING TO BE READ TECHNIQUE: Multiplanar MR imaging of the pelvis was performed using T1, T2, fat saturated, and diffusion weighted techniques. Dynamic multiphase imaging was also performed after administration of an intravenous gadolinium contrast agent. COMPARISON: None Additional Information: PSA: 5.3 ng/ml PSA density: 0.09 ng/ml/cc Biopsy Date: 01/22/2024 Biopsy results: Susie pattern 3 + 3 Prior treatment or Active Surveillance: planning FINDINGS: Prostate Gland Size: 5.1 x 5.1 x 4.6 cm Prostate Volume: 62 mL PERIPHERAL ZONE: Patchy areas of low T2 weighted signal. Focal Lesion(s): 1. There is a 0.6 cm focal lesion (7 : 18) in the left peripheral zone, located at the mid gland , posterolateral region (PzPl). The lesion is focally mild to moderately hypointense on ADC and/or moderately hyperintense on high b-value DWI, dynamic contrast enhancement is negative, and is heterogeneous signal intensity or non-circumscribed, rounded, moderate hypointensity on T2WI. There is no evidence of extraprostatic extension. The lesion is PI-RADS 3. TRANSITION ZONE: Changes of glandular and stromal hyperplasia (BPH). The Membranous Urethra Length (MUL) is: 1.2 cm Seminal Vesicles: Normal. Bladder: Normal. Rectum: Scattered sigmoid diverticulosis. No wall thickening. Lymph Nodes: No pelvic lymphadenopathy. Vessels: Normal. Bones/Soft Tissues: Normal. No destructive osseous lesions. Procedure Note Farzana Clark MD - 12/16/2024 MRI PELVIS (SOFT TISSUE) OUTSIDE WITH INTERPRETATION OR CONSULT Referring clinician's provided indication for this examination in [facility]:MRI PROSTATE OUTSIDE READ, ELEVATED PSA; OUTSIDE IMAGING TO BE READ TECHNIQUE: Multiplanar MR imaging of the pelvis was performed using T1,T2, fat saturated, and diffusion weighted techniques. Dynamic multiphaseimaging was also performed after administration of an intravenousgadolinium contrast agent. COMPARISON: None Additional Information: PSA: 5.3 ng/ml PSA density: 0.09 ng/ml/cc Biopsy Date: 01/22/2024 Biopsy results: Jackman pattern 3 + 3 Prior treatment or Active Surveillance: planning FINDINGS: Prostate Gland Size: 5.1 x 5.1 x 4.6 cm Prostate Volume: 62 mL PERIPHERAL ZONE: Patchy areas of low T2 weighted signal. Focal Lesion(s): 1. There is a 0.6 cm focal lesion (7 : 18) in the left peripheral zone,located at the mid gland , posterolateral region (PzPl). The lesion isfocally mild to moderately hypointense on ADC and/or moderatelyhyperintense on high b-value DWI, dynamic contrast enhancement isnegative, and is heterogeneous signal intensity or non-circumscribed,rounded, moderate hypointensity on T2WI. There is no evidence ofextraprostatic extension. The lesion is PI-RADS 3. TRANSITION ZONE: Changes of glandular and stromal hyperplasia (BPH). The Membranous Urethra Length (MUL) is: 1.2 cm Seminal Vesicles: Normal. Bladder: Normal. Rectum: Scattered sigmoid diverticulosis. No wall thickening. Lymph Nodes: No pelvic lymphadenopathy. Vessels: Normal. Bones/Soft Tissues: Normal. No destructive osseous lesions. IMPRESSION: A 0.6 cm left prostate mid gland peripheral zone finding, has triangularshape and may represent sequelae of prior prostatitis; still, meetsPI-RADS 3 criteria. PI-RADS 1: Very low (clinically significant cancer is highly unlikely tamiko present) PI-RADS 2: Low (clinically significant cancer is unlikely to be present) PI-RADS 3: Intermediate (the presence of clinically significant cancer isequivocal) PI-RADS 4: High (clinically significant cancer is likely to be present) PI-RADS 5: Very high (clinically significant cancer is highly likely to bepresent) [employer]. MR Prostate Imaging Reporting and DataSystem. http://www.acr.org/Quality-Safety/Resources/PIRADS/ Michael Velez MD, MPH IMG OUTSIDE IMAGING W/ IN TERPRETATION Final Result [address] [address] documented in this encounter Visit Diagnoses Diagnosis Elevated PSA Elevated prostate specific antigen (PSA) Elevated PSA- Primary Elevated prostate specific antigen (PSA) documented in this encounter Care Teams Slasher Sawyer Relationship Specialty Start Date End Date Moises Denny MD [address] [place] [address] PCP - General Family Medicine 10/22/24 Self-Referred, Patient 10/22/24 documented as of this encounter Additional Source Comments The information contained in this document represents components of the legal health record. It is not the complete legal health record.[facility]
[2025-01-20 08:50] VITALS: BP 120/70; PULSE 60; RESP 14; TEMP 36.6; O2SAT 94; BMI 30.5
== END 2025-01-20 11:23 | disposition home or self-care (01) ==
LOC: HO.HMCFM 08:37
PROVIDERS: PCP Family Medicine; Visit Provider Family Medicine
DX: I86.8 Varicose veins of other specified sites (principal); I25.10 Atherosclerotic heart disease of native coronary artery without angina pectoris; R73.03 Prediabetes; C61 Malignant neoplasm of prostate

== ENCOUNTER → 2025-01-20 08:36 | Outpatient (BNVA) | payer MEDICARE, SELFPAY | PROVIDERS: PCP Family Medicine; Visit Provider Family Medicine | DX: I86.8 Varicose veins of other specified sites (principal); I25.10 Atherosclerotic heart disease of native coronary artery without angina pectoris; R73.03 Prediabetes; C61 Malignant neoplasm of prostate | CPT/HCPCS: 99212 ==

== ENCOUNTER 2025-05-04 08:24 | Outpatient (REF) | payer MEDICARE, SELFPAY ==
[2025-05-04 11:21] LABS: MANUAL DIFF FLAG NO
[2025-05-04 11:43] LABS: Appearance Urine Clear; Glucose Urine UA Negative (Negative); PH 6.0 (5.0-9.0); Specific Gravity - Urine 1.020 (1.005-1.025)
[2025-05-04 12:08] LABS: Hematocrit 47.0 % (42.0-52.0); Hemoglobin 15.1 g/dl (14.0-18.0); Imm Gran Abs Auto 0.01 X10*3/uL (0.00-0.03); Imm Gran Pct Auto 0.2 % (0.0-0.4); Lymphocytes Absolute Auto 1.4 X10*3/uL (1.2-4.9); Mean Corpuscular HGB Conc 32.1 g/dl (31.0-36.0); Mean Corpuscular Hemoglobin 30.0 pg (27.0-33.0); Mean Corpuscular Volume 93.3 fL (80.0-98.0); NRBC Abs Auto 0.000 X10*3/uL (0.0-0.012); NRBC Pct Auto 0.0 /100WBC (0.0-0.2); Platelet Count 176 X10*3/uL (160-400); Red Blood Count 5.04 X10*6/uL (4.60-5.80); White Blood Count 4.7 X10*3/uL (4.8-10.8)
[2025-05-04 12:28] LABS: Microalbum/Creatinine Ratio Ur 9.6 ug/mg cr (<30)
[2025-05-04 12:49] LABS: Alanine Aminotransferase 36 U/L (0-40); Albumin Level 4.2 g/dL (3.5-5.0); Alkaline Phosphatase 84 U/L (39-117); Anion Gap 9 (12-20); Aspartate Amino Transferase 41 U/L (5-37); Blood Urea Nitrogen 22 mg/dL (9-16); Calcium 9.4 mg/dL (8.4-10.2); Carbon Dioxide 27 mmol/L (22-29); Chloride 108 mmol/L (96-108); Cholesterol 115 mg/dL (<200); Estimated Glomerular Filt Rate > 60; HDL Cholesterol 47 mg/dL (>40); Potassium 4.8 mmol/L (3.3-5.1); Sodium 139 mmol/L (135-145); Total Protein 7.3 g/dL (6.5-8.0); Triglycerides 63 mg/dL (<150)
== END 2025-05-04 08:25 | disposition home or self-care (01) ==
LOC: HO.WFDLDS 08:24
PROVIDERS: Visit Provider Family Medicine
DX: Z00.00 Encounter for general adult medical examination without abnormal findings (principal); Z12.5 Encounter for screening for malignant neoplasm of prostate; I10 Essential (primary) hypertension; R73.01 Impaired fasting glucose
CPT/HCPCS: 36415; 80053; 80061; 81003; 82043; 82570; 83036; 84153; 84443; 85025

== ENCOUNTER 2025-05-29 09:52 | Outpatient (AMB) | payer MEDICARE, SELFPAY ==
--- NOTE | 2025-05-29 09:49 | A.OFFPC_ITS ---
Intake Visit Reasons: labs Spice Miller Required: No Allergies penicillamine Allergy (Unknown, Verified 05/29/25 09:50) unknown Penicillins Adverse Reaction (Intermediate, Verified 05/29/25 09:50) CHILDHOOD, Anaphylaxis Medication List - Last Reconciled 05/29/25 by Moises Denny MD aspirin (Adult Low Dose Aspirin) 81 mg PO DAILY atorvastatin 80 mg PO DAILY 90 days ezetimibe 10 mg PO DAILY metformin 250 mg (1/2 x 500 mg) PO DAILY 90 days Tobacco use date assessed: 05/29/25 Dental Screening Dental Screen Date: 05/29/25 Did you have a dental visit in the last 12 months?: Yes Did you have a dental problem in the last 6 months where you did not have access to dental care?: No Was dental information given to patient?: Patient has dentist HPI labs HPI Details 70 y/o male presents to f/u labs via tel emed. Labs drawn 05/04/25. Reviewed labs with pt. A1c 5.8%. Elevated AST of 41. ALT 36. Triglycerides 63. TC 115. LDL 56. HDL 47. He is on artovastatin 80mg daily. PSA 4.86. Followed by urology. HPI Comments History of Present Illness Details Documentation assistance for Moises Denny MD, was provided by Cedrick Oconnor, Residential Leasing Manager on 05/29/2025 at 10:31 AM BUFFY. I, Dr. Denny, have read, observed, and verified documentation. [facility] Medical History Pre-diabetes Enlarged thoracic aorta Hyperlipidemia CAD (coronary artery disease) Surgical History Hx of eye surgery History of open reduction and internal fixation (ORIF) procedure Family History Mother No problems noted. Father CVD (cardiovascular disease) Brother Hx of CABG Brother No problems noted. Son No problems noted. Son No problems noted. Daughter No problems noted. Social History (Updated 05/29/25 @ 09:51 by Monique Angulo CMA) Household Members: Spouse Housing: House Alcohol intake: current Alcohol intake frequency: holidays/special occasions only Comment: Sporadic drinker-more socially Patient Tobacco Use Status: Former Tobacco user Tobacco use type: Cigarette Years Smoked: 30 e-Cigarette/Vaping Use: Never Used Use of substances other than those prescribed or required for medical reasons: No service: No Current occupational status: retired Current occupational exposures/hazards: No Sexual orientation: Unable to collect Gender identity: Unable to collect Cognitive needs: No Hearing needs: Yes Vision needs: Yes Questionnaire Thrive Questionnaire Date Thrive assessed: 11/05/24 LUIS-7 AMB Questionnaire LUIS-7 Date LUIS - 7 assessed: 11/12/24 Source: Developed by Drs. Larry Stockton, Bridget Nielsen, Didier Hernandez and colleagues, with an educational toya from [employer]. Review of Systems Const Denies chills, Denies fatigue, Denies fever(s), Denies headache(s) and Denies weakness ENT Denies dizziness and Denies headache(s) Card Denies dyspnea Resp Denies cough, Denies dyspnea, Denies wheezing and Denies other (shortness of breath) Musc Denies numbness and Denies tingling Neuro Denies dizziness, Denies headache(s), Denies numbness, Denies tingling and Denies weakness Psych Denies anxiety and Denies depression Endo Denies fatigue Aller/Immun Denies wheezing Physical exam (Primary Care) Tobacco/Smoking Status: Tobacco use Status Tobacco use date assessed 05/29/25 05/29/25 09:51 Patient Tobacco Use Status Former Tobacco user 05/29/25 09:51 Tobacco use type Cigarette 05/29/25 09:51 e-Cigarette/Vaping Use Never Used 05/29/25 09:51 Thrive Assessment: Date of Thrive Assessment Date Thrive assessed 11/05/24 05/29/25 09:51 Telehealth Telehealth Telehealth Platform: Telephone Location of provider rendering services: practice address Location of patient: address on file Patient Identification confirmed using: Name, : Yes Telehealth method: voice only Patient verbally consented to treatment: Yes Patient verbally consented to billing insurance company: Yes Patient informed of any privacy concerns related to visit: Yes Coding Level of Care Code Tele Est Pt Level 2 (85337) Diagnoses Hyperlipidemia E78.5 CAD (coronary artery disease) I25.10 Elevated PSA R97.20 Pre-diabetes R73.03 Elevated liver enzymes R74.8 Assessment & Plan Assessment & Plan (1) Hyperlipidemia: Comment: Cardiology recommends LDL target goal closer to 60 Code(s): E78.5 - Hyperlipidemia, unspecified Category: Medical Plan: Cholesterol panel shows good control and LDL is at goal of less than 70 Continue atorvastatin and Zetia as prescribed (2) CAD (coronary artery disease): Code(s): I25.10 - Atherosclerotic heart disease of [place] coronary artery without angina pectoris Category: Medical Plan: Stable Follow-up with Cardiology as recommended (3) Elevated PSA: Code(s): R97.20 - Elevated prostate specific antigen [PSA] Category: Medical Plan: PSA is elevated He has been followed by [facility] and recently transferred to Dr. Velez Follow-up with urology as recommended (4) Pre-diabetes: Code(s): R73.03 - Prediabetes Category: Medical Plan: A1c stable at 5.8% on low dose metformin for pre diabetes with coronary artery disease. Continue metformin Watch sugars and starches in diet (5) Elevated liver enzymes: Code(s): R74.8 - Abnormal levels of other serum enzymes Category: Medical Plan: Mildly elevated liver enzyme, likely multifactorial and primarily secondary to dehydration Increase hydration Will recheck prior to his next visit Orders: Orders Comprehensive Met. Panel Today Z00.00 - Encounter for general adult medical examination without abnormal findings
== END 2025-05-29 11:23 | disposition home or self-care (01) ==
LOC: HO.HMCFM 09:52
PROVIDERS: PCP Family Medicine; Visit Provider Family Medicine
DX: E78.5 Hyperlipidemia, unspecified (principal); I25.10 Atherosclerotic heart disease of native coronary artery without angina pectoris; R74.01 Elevation of levels of liver transaminase levels; R73.03 Prediabetes; R97.20 Elevated prostate specific antigen [PSA]